=== PATIENT | female | born 1970 | race Caucasian/White ===

== ENCOUNTER 2017-06-18 04:57 | Emergency (ER) | payer SELFPAY ==
[~2017-06-18] VITALS: Ht 157.5 cm; Wt 59.0 kg
[~2017-06-18 04:57] MED LIST: ALPR2TAB2 PO; AMIT100T2 PO; ASP325T PO; CARV12.5 PO; CARV3.122 PO; CEPH500C PO; CIPR500T78 PO; CYCL10TA9 PO; FURO20TA4 PO; HYDR-2997 PO; LANS30CA PO; LISI10TA PO; METR500T PO; OXYC1TAB95 PO; SULF1TAB23 PO; ZOLP10TA5 PO
--- OUTSIDE RECORDS SUMMARY | 2017-06-18 05:06 | XMS REPORT | Continuity of Care Document ---
Author Author [facility] Organization [facility] Address Unknown Phone Unavailable Allergies Active Description Code Type Severity Reaction Onset Reported/Identified Relationship to Patient Clinical Status Yes penicillin V potassium Drug Allergy 02/09/2011 Yes penicillin V potassium Drug Allergy N/A N/A 02/09/2011 Medications There is no data. Problems Date Dx Coded Attending Type Code Diagnosis Diagnosed By 2008 DIO MAURER APRN 729.5 PAIN IN LIMB 2008 DIO MAURER APRN 780.52 INSOMNIA UNSPECIFIED 2008 DIO MAURER APRN 729.5 PAIN IN LIMB 2008 DIO MAURER APRN 780.52 INSOMNIA UNSPECIFIED 2008 TEIXEIRA DO, RONNIE K 729.5 PAIN IN LIMB 2008 TEIXEIRA DO, RONNIE K 780.52 INSOMNIA UNSPECIFIED 2008 TEIXEIRA DO, RONNIE K 729.5 PAIN IN LIMB 2008 TEIXEIRA DO, RONNIE K 780.52 INSOMNIA UNSPECIFIED 2008 TEIXEIRA DO, RONNEI K 729.5 PAIN IN LIMB 2008 TEIXEIRA DO, RONNIE K 780.52 INSOMNIA UNSPECIFIED 2008 TEIXEIRA DO, RONNIE K 729.5 PAIN IN LIMB 2008 TEIXEIRA DO, RONNIE K 780.52 INSOMNIA UNSPECIFIED 2008 729.5 PAIN IN LIMB 2008 780.52 INSOMNIA UNSPECIFIED 04/17/2009 DIO MAURER APRN 296.90 MOOD DISORDER 04/17/2009 DIO MAURER APRN 296.90 MOOD DISORDER 04/17/2009 TEIXEIRA DO, RONNIE K 296.90 MOOD DISORDER 04/17/2009 TEIXEIRA DO, RONNIE K 296.90 MOOD DISORDER 04/17/2009 TEIXEIRA DO, RONNIE K 296.90 MOOD DISORDER 04/17/2009 TEIXEIRA DO, RONNIE K 296.90 MOOD DISORDER 04/17/2009 296.90 MOOD DISORDER 03/24/2010 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, DIO T 382.00 OTITIS MEDIA ACUTE SUPPURATIVE 03/24/2010 DIO MAURER APRN T 724.5 BACKACHE UNSPECIFIED 03/24/2010 DIO MAURER APRN T 382.00 OTITIS MEDIA ACUTE SUPPURATIVE 03/24/2010 DIO MAURER APRN T 724.5 BACKACHE UNSPECIFIED 03/24/2010 TEIXEIRA DO, RONNIE K 382.00 OTITIS MEDIA ACUTE SUPPURATIVE 03/24/2010 TEIXEIRA DO, RONNIE K 724.5 BACKACHE UNSPECIFIED 03/24/2010 TEIXEIRA DO, RONNIE K 382.00 OTITIS MEDIA ACUTE SUPPURATIVE 03/24/2010 TEIXEIRA DO, RONNIE K 724.5 BACKACHE UNSPECIFIED 03/24/2010 TEIXEIRA DO, RONNIE K 382.00 OTITIS MEDIA ACUTE SUPPURATIVE 03/24/2010 TEIXEIRA DO, RONNIE K 724.5 BACKACHE UNSPECIFIED 03/24/2010 TEIXEIRA DO, RONNIE K 382.00 OTITIS MEDIA ACUTE SUPPURATIVE 03/24/2010 TEIXEIRA DO, RONNIE K 724.5 BACKACHE UNSPECIFIED 03/24/2010 382.00 OTITIS MEDIA ACUTE SUPPURATIVE 03/24/2010 724.5 BACKACHE UNSPECIFIED 08/11/2011 DIO MAURER APRN T 354.0 CARPAL TUNNEL SYNDROME 08/11/2011 DIO MAURER APRN 354.0 CARPAL TUNNEL SYNDROME 08/11/2011 TEIXEIRA DO, RONNIE K 354.0 CARPAL TUNNEL SYNDROME 08/11/2011 TEIXEIRA DO, RONNIE K 354.0 CARPAL TUNNEL SYNDROME 08/11/2011 TEIXEIRA DO, RONNIE K 354.0 CARPAL TUNNEL SYNDROME 08/11/2011 TEIXEIRA DO, RONNIE K 354.0 CARPAL TUNNEL SYNDROME 08/11/2011 354.0 CARPAL TUNNEL SYNDROME 05/09/2013 DIO MAURER APRN 892.0 OPEN WOUND OF FOOT EXCEPT TOE(S) ALONE WITHOUT COMPLICATION 05/09/2013 TEIXEIRA DO, RONNIE K 892.0 OPEN WOUND OF FOOT EXCEPT TOE(S) ALONE WITHOUT COMPLICATION 05/09/2013 TEIXEIRA DO, RONNIE K 892.0 OPEN WOUND OF FOOT EXCEPT TOE(S) ALONE WITHOUT COMPLICATION 05/09/2013 TEIXEIRA DO, RONNIE K 892.0 OPEN WOUND OF FOOT EXCEPT TOE(S) ALONE WITHOUT COMPLICATION 05/09/2013 TEIXEIRA DO, RONNIE K 892.0 OPEN WOUND OF FOOT EXCEPT TOE(S) ALONE WITHOUT COMPLICATION 07/14/2013 RONNIE TEIXEIRA DO 707.15 ULCER-FOOT/TOES 07/14/2013 RONNIE TEIXEIRA DO 707.15 ULCER-FOOT/TOES 07/14/2013 RONNIE TEIXEIRA DO 707.15 ULCER-FOOT/TOES 07/14/2013 RONNIE TEIXEIRA DO 707.15 ULCER-FOOT/TOES 07/28/2013 RONNIE TEIXEIRA DO 682.7 CELLULITIS - FOOT 07/28/2013 RONNIE TEIXEIRA DO 682.7 CELLULITIS - FOOT 07/28/2013 RONNIE TEIXEIRA DO 682.7 CELLULITIS - FOOT Procedures Code Description Performed By Performed On PODIATRY EVETTE, MELVIN 05/09/2013 82683 DEBRIDE SKIN TISSUE 07/14/2013 41655 XRAY FEET, LADARIUS 07/14/2013 76082 BONE IMAGING 3 PHASE 07/14/2013 72880 DEBRIDE SKIN TISSUE 07/28/2013 65093 DEBRIDE SKIN TISSUE 08/18/2013 29982 DEBRIDE SKIN FULL 09/08/2013 Results There is no data. Encounters ACCT No. Visit Date/Time Discharge Status Pt. Type Provider Facility Loc./Unit Complaint [id number] 08/03/2013 09:38:00 08/03/2013 12:48:00 DIS Emergency [id number] 07/18/2013 11:49:00 07/18/2013 23:59:59 CLS Outpatient [id number] 06/05/2013 16:43:00 06/05/2013 20:48:00 DIS Emergency [id number] 04/25/2013 16:59:00 04/25/2013 18:41:00 DIS Emergency [id number] 12/23/2012 07:17:00 12/23/2012 10:33:00 DIS Emergency [id number] 09/08/2013 08:26:00 09/08/2013 23:59:59 CLS Outpatient RONNIE TEIXEIRA DO [id number] 08/18/2013 07:52:00 08/18/2013 23:59:59 CLS Outpatient RONNIE TEIXEIRA DO [id number] 07/28/2013 08:55:00 07/28/2013 23:59:59 CLS Outpatient RONNIE TEIXEIRA DO [id number] 07/14/2013 09:42:00 07/14/2013 23:59:59 CLS Outpatient RONNIE TEIXEIRA DO [id number] 05/09/2013 15:24:00 05/09/2013 23:59:59 CLS Outpatient DIO MAURER APRN [id number] 08/11/2011 16:08:00 08/11/2011 23:59:59 CLS Outpatient DIO MAURER APRN [id number] 08/11/2011 16:08:00 08/11/2011 23:59:59 CLS Outpatient
[2017-06-18] MEDS ORDERED: NS IV 1000 ML 0 ML ONE (05:11)
[2017-06-18] MEDS ORDERED: NS IV 500 ML 500 ML IV ONE (05:11)
[2017-06-18] MEDS ORDERED: ACETAMINOPHEN 500 MG TAB (TYLENOL) ONE (05:13)
[2017-06-18] MEDS ORDERED: NS IV 500 ML 500 ML ONE (05:13)
[2017-06-18] MEDS ORDERED: ACETAMINOPHEN 500 MG TAB (TYLENOL) PO PRN (05:15)
[2017-06-18 05:39] LABS: BASOPHILS % (AUTO) 0 % (0-10); EOSINOPHILS % (AUTO) 0 % (0-10); HEMATOCRIT 40 % (35-52); HEMOGLOBIN 14.1 G/DL (11.5-16.0); LYMPHOCYTES # (AUTO) 1.6 X 10^3 (1.0-4.0); LYMPHOCYTES % (AUTO) 20 % (12-44); MEAN CORPUSCULAR HEMOGLOBIN 33 PG (25-34); MEAN CORPUSCULAR HGB CONC 36 G/DL (32-36); MEAN CORPUSCULAR VOLUME 92 FL (80-99); MEAN PLATELET VOLUME 10.3 FL (7.4-10.4); MONOCYTES % (AUTO) 12 % (0-12); NEUTROPHILS # (AUTO) 5.4 X 10^3 (1.8-7.8); NEUTROPHILS % (AUTO) 67 % (42-75); PLATELET COUNT 233 10^3/uL (130-400); RED BLOOD COUNT 4.31 10^6/uL (4.35-5.85); RED CELL DISTRIBUTION WIDTH 12.3 % (10.0-14.5)
[2017-06-18 05:41] LABS: BILIRUBIN,URINE NEGATIVE (NEGATIVE); CLARITY,URINE CLEAR; COLOR,URINE YELLOW; GLUCOSE, URINE (UA) NEGATIVE (NEGATIVE); KETONES,URINE NEGATIVE (NEGATIVE); LEUKOCYTE ESTERASE ,URINE NEGATIVE (NEGATIVE); NITRITE,URINE NEGATIVE (NEGATIVE); PH,URINE 5 (5-9); PROTEIN,URINE NEGATIVE (NEGATIVE); UROBILINOGEN,URINE NORMAL (NORMAL)
--- NOTE | 2017-06-18 05:47 | ED General ---
General Chief Complaint: Cough/Cold/Flu Symptoms Stated Complaint: FLU SYMPTOMS,N/V Source of Information: Patient, Family (MAUREEN SHARMA MD) History of Present Illness Date Seen by Provider: Jun 18, 2017 Time Seen by Provider: 05:07 Initial Comments Here with cough, runny nose, body aches and fever that have been going on for 3 days. States the body aches are worse today. Took ibuprofen 400 mg a couple hours ago this does not help. States that she feels terrible. Does have history of heart failure as well as other cardiac issues and had fairly significant acute renal failure a few years ago. States that that has resolved. States that she had heart catheter a few weeks ago at [facility] and had 100 percent blockage but no stents placed. She has medications prescribed and is taking some of but is out of a few of them. Follows with [facility]. She did not get her flu shot this year. Timing/Duration: 2-3 Days Severity: Moderate Modifying Factors: improves with Other (none) Associated Systoms: No Chest Pain, Cough, Fever/Chills, Malaise, No Nausea/ Vomiting, No Shortness of Air, Weakness (MAUREEN SHARMA MD) Allergies and Home Medications Allergies Coded Allergies: Penicillins (Verified Allergy, Mild, 08/07/11) Home Medications Alprazolam 2 Mg Tablet, 2 MG PO QID, (Reported) Amitriptyline Hcl 100 Mg Tablet, 1 EACH PO DAILY, (Reported) Carvedilol 12.5 Mg Tablet, 12.5 MG PO BID, (Reported) Cyclobenzaprine Hcl 10 Mg Tablet, 1 EACH PO BID, #20 Prescribed by: GONZALEZ SMITH on 12/23/12 1011 Furosemide 20 Mg Tablet, 20 MG PO DAILY, (Reported) Lansoprazole 30 Mg Capsule.dr, 30 MG PO BID PRN for HEARTBURN, (Reported) Lisinopril 10 Mg Tablet, 10 MG PO DAILY, (Reported) Oxycodone Hcl/Acetaminophen 1 Each Tablet, 1 EACH PO Q6HR PRN, (Reported) Sulfamethoxazole/Trimethoprim 1 Tab Tablet, 1 TAB PO BID, (Reported) Zolpidem Tartrate 10 Mg Tablet, 10 MG PO HS, (Reported) Constitutional: see HPI, chills, fever, malaise, weakness EENTM: nose congestion, throat pain Respiratory: cough, No wheezing Cardiovascular: No chest pain, No edema, Hx of Intervention Gastrointestinal: No abdominal pain, nausea, No vomiting Genitourinary: no symptoms reported Musculoskeletal: see HPI, No joint swelling, muscle pain Skin: no symptoms reported Psychiatric/Neurological: No Symptoms Reported (MAUREEN SHARMA MD) All Other Systems Reviewed Negative Unless Noted: Yes (MAUREEN SHARMA MD) Past Mzwgeqe-Wbwagy-Hvjllz Hx Patient Social History Alcohol Use: Denies Use Recreational Drug Use: No Smoking Status: Current Everyday Smoker Type Used: Cigarettes Recent Foreign Travel: No Contact w/Someone Who Travel: No (MAUREEN SHARMA MD) Surgeries History of Surgeries: Yes Surgeries: Coronary Stent, Orthopedic (MAUREEN SHARMA MD) Respiratory History of Respiratory Disorde: Yes Respiratory Disorders: Chronic Bronchitis (MAUREEN SHARMA MD) Cardiovascular History of Cardiac Disorders: Yes Cardiac Disorders: Coronary Artery Disease, Hypertension (MAUREEN SHARMA MD) Neurological History of Neurological Disord: No (MAUREEN SHARMA MD) Genitourinary History of Genitourinary Disor: Yes Genitourinary Disorders: Renal Failure (MAUREEN SHARMA MD) Gastrointestinal History of Gastrointestinal Di: No (MAUREEN SHARMA MD) Musculoskeletal History of Musculoskeletal Dis: Yes Musculoskeletal Disorders: Back Injury (MAUREEN SHARMA MD) Endocrine History of Endocrine Disorders: No (MAUREEN SHARMA MD) HEENT History of HEENT Disorders: No (MAUREEN SHARMA MD) Psychosocial History of Psychiatric Problem: Yes Behavioral Health Disorders: Anxiety (MAUREEN SHARMA MD) Blood Transfusions Adverse Reaction to a Blood Tr: No (MAUREEN SHARMA MD) Reviewed Nursing Assessment Reviewed/Agree w Nursing PMH: Yes (MAUREEN SHARMA MD) Family Medical History Significant Family History: No Pertinent Family Hx (MAUREEN SHARMA MD) Physical Exam-Suspected Sepsis Physical Exam Vital Signs Vital Sign - Last 12Hours 06/18/17 05:04 Temp 101.0 Pulse 107 Resp 20 B/P (MAP) 115/82 (93) Pulse Ox 95 O2 Delivery Room Air (GONZALEZ SMITH MD) Vital Signs Capillary Refill : (MAUREEN SHARMA MD) General Appearance: WD/WN, Mild Distress HEENT: PERRL/EOMI, Pharyngeal Erythema, Other (bilateral nasal congestion with clear rhinorrhea and moderate erythema) Neck: Non Tender, Supple Respiratory: Lungs Clear, Normal Breath Sounds Cardiovascular: No Murmur, Tachycardia Gastrointestinal: Non Tender, Soft Back: Normal Inspection, No CVA Tenderness, No Vertebral Tenderness Extremity: Normal Range of Motion, Non Tender Neurologic/Psychiatric: Alert, Oriented x3 Skin: normal color, warm/dry (MAUREEN SHARMA MD) Focused Exam Evaluation Lactate Level Laboratory Tests 06/18/17 05:22: Lactic Acid Level 1.61 (GONZALEZ SMITH MD) Lactic Acid Level Laboratory Tests Test 06/18/17 05:22 Lactic Acid Level 1.61 MMOL/L (0.50-2.00) (GONZALEZ SMITH MD) Progress/Results/Core Measures Suspected Sepsis SIRS Temperature: Pulse: Respiratory Rate: Laboratory Tests 06/18/17 05:22: Blood Pressure / Mean: Laboratory Tests 06/18/17 05:22: Laboratory Tests 06/18/17 05:22: (MAUREEN SHARMA MD) Results/Orders Lab Results Laboratory Tests Test 06/18/17 05:22 06/18/17 05:30 Range/Units White Blood Count 8.0 4.3-11.0 10^3/uL Red Blood Count 4.31 L 4.35-5.85 10^6/uL Hemoglobin 14.1 11.5-16.0 G/DL Hematocrit 40 35-52 % Mean Corpuscular Volume 92 80-99 FL Mean Corpuscular Hemoglobin 33 25-34 PG Mean Corpuscular Hemoglobin Concent 36 32-36 G/DL Red Cell Distribution Width 12.3 10.0-14.5 % Platelet Count 233 130-400 10^3/uL Mean Platelet Volume 10.3 7.4-10.4 FL Neutrophils (%) (Auto) 67 42-75 % Lymphocytes (%) (Auto) 20 12-44 % Monocytes (%) (Auto) 12 0-12 % Eosinophils (%) (Auto) 0 0-10 % Basophils (%) (Auto) 0 0-10 % Neutrophils # (Auto) 5.4 1.8-7.8 X 10^3 Lymphocytes # (Auto) 1.6 1.0-4.0 X 10^3 Monocytes # (Auto) 1.0 0.0-1.0 X 10^3 Eosinophils # (Auto) 0.0 0.0-0.3 10^3/uL Basophils # (Auto) 0.0 0.0-0.1 10^3/uL Prothrombin Time 13.4 12.2-14.7 SEC INR Comment 1.0 0.8-1.4 Activated Partial Thromboplast Time 33 24-35 SEC Sodium Level 138 135-145 MMOL/L Potassium Level 3.7 3.6-5.0 MMOL/L Chloride Level 103 98-107 MMOL/L Carbon Dioxide Level 21 21-32 MMOL/L Anion Gap 14 5-14 MMOL/L Blood Urea Nitrogen 7 7-18 MG/DL Creatinine 0.75 0.60-1.30 MG/DL Estimat Glomerular Filtration Rate > 60 BUN/Creatinine Ratio 9 Glucose Level 171 H 70-105 MG/DL Lactic Acid Level 1.61 0.50-2.00 MMOL/L Calcium Level 8.7 8.5-10.1 MG/DL Total Bilirubin 0.4 0.1-1.0 MG/DL Aspartate Amino Transf (AST/SGOT) 15 5-34 U/L Alanine Aminotransferase (ALT/SGPT) 14 0-55 U/L Alkaline Phosphatase 70 40-136 U/L B-Type Natriuretic Peptide 98.6 <100.0 PG/ML Total Protein 6.8 6.4-8.2 GM/DL Albumin 3.7 3.2-4.5 GM/DL Urine Color YELLOW Urine Clarity CLEAR Urine pH 5 5-9 Urine Specific [place] 1.010 L 1.016-1.022 Urine Protein NEGATIVE NEGATIVE Urine Glucose (UA) NEGATIVE NEGATIVE Urine Ketones NEGATIVE NEGATIVE Urine Nitrite NEGATIVE NEGATIVE Urine Bilirubin NEGATIVE NEGATIVE Urine Urobilinogen NORMAL NORMAL MG/DL Urine Leukocyte Esterase NEGATIVE NEGATIVE Urine RBC (Auto) 5+ H NEGATIVE Urine RBC 0-2 /HPF Urine WBC NONE /HPF Urine Squamous Epithelial Cells 5-10 /HPF Urine Crystals NONE /LPF Urine Bacteria TRACE /HPF Urine Casts NONE /LPF Urine Mucus NEGATIVE /LPF Urine Culture Indicated NO Urine Opiates Screen NEGATIVE NEGATIVE Urine Oxycodone Screen NEGATIVE NEGATIVE Urine Methadone Screen NEGATIVE NEGATIVE Urine Propoxyphene Screen NEGATIVE NEGATIVE Urine Barbiturates Screen NEGATIVE NEGATIVE Ur Tricyclic Antidepressants Screen NEGATIVE NEGATIVE Urine Phencyclidine Screen NEGATIVE NEGATIVE Urine Amphetamines Screen NEGATIVE NEGATIVE Urine Methamphetamines Screen NEGATIVE NEGATIVE Urine Benzodiazepines Screen NEGATIVE NEGATIVE Urine Cocaine Screen NEGATIVE NEGATIVE Urine Cannabinoids Screen POSITIVE H NEGATIVE (GONZALEZ SMITH MD) Micro Results Microbiology 06/18/17 Influenza Types A,B Antigen (POLLY) - Final, Complete (GONZALEZ SMITH MD) Medications Given in ED Current Medications Medications Dose Ordered Sig/Aixa Route Start Time Stop Time Status Last Admin Dose Admin Acetaminophen 1,000 mg ONCE PRN PO 06/18/17 05:15 06/18/17 05:38 DC 06/18/17 05:14 1,000 MG Sodium Chloride 500 ml @ 0 mls/hr Q0M ONCE IV 06/18/17 05:11 06/18/17 05:13 DC 06/18/17 05:24 500 MLS/HR (GONZALEZ SMITH MD) Vital Signs/I&O Vital Sign - Last 12Hours 06/18/17 05:04 Temp 101.0 Pulse 107 Resp 20 B/P (MAP) 115/82 (93) Pulse Ox 95 O2 Delivery Room Air (GONZALEZ SMITH MD) Vital Signs/I&O Capillary Refill : (MAUREEN SHARMA MD) Progress Note : Progress Note Seen and evaluated. IV, labs, blood cultures, lactic acid, UA, chest x-ray, influenza screen UDS ordered. Normal saline 500 mL bolus. Monitor patient. Temperature noted to be 101 Fahrenheit. Tylenol 1 g by mouth ordered. Monitor patient. (MAUREEN SHARMA MD) Departure Impression Impression: Primary Impression: flulike illness Disposition: 01 HOME, SELF-CARE Condition: Stable/Unchanged Departure-Patient Inst. Decision time for Depature: 06:36 (GONZALEZ SMITH MD) Referrals: [facility] (PCP) Primary Care Physician DIO MAURER (Family) Primary Care Physician Patient Instructions: Flu, Adult (DC) Add. Discharge Instructions: All discharge instructions reviewed with patient and/or family. Voiced understanding. Symptoms may last as long as 2 weeks. Use extra rest, plenty of fluids including fruit juice. Take Tylenol and /or ibuprofen for fever aches and chills. Do not exceed 3000 mg of Tylenol per day or 2400 mg of ibuprofen a day. If increasing problems contact your provider. MAUREEN SHARMA MD Jun 18, 2017 05:47 GONZALEZ SMITH MD Jun 18, 2017 06:38
[2017-06-18 05:49] LABS: PROTHROMBIN TIME PATIENT 13.4 SEC (12.2-14.7)
[2017-06-18 05:59] LABS: BACTERIA,URINE TRACE /HPF; RBC,URINE 0-2 /HPF
[2017-06-18 06:06] LABS: ALANINE AMINOTRANSFERASE 14 U/L (0-55); ALBUMIN 3.7 GM/DL (3.2-4.5); ALKALINE PHOSPHATASE 70 U/L (40-136); BILIRUBIN,TOTAL 0.4 MG/DL (0.1-1.0); BUN/CREATININE RATIO 9; CALCIUM 8.7 MG/DL (8.5-10.1); CARBON DIOXIDE 21 MMOL/L (21-32); CHLORIDE 103 MMOL/L (98-107); CREATININE SERUM 0.75 MG/DL (0.60-1.30); GFR ESTIMATED > 60; GLUCOSE 171 MG/DL (70-105); POTASSIUM 3.7 MMOL/L (3.6-5.0); SODIUM 138 MMOL/L (135-145); TOTAL PROTEIN 6.8 GM/DL (6.4-8.2)
[2017-06-18 06:07] LABS: AMPHETAMINE SCREEN, URINE NEGATIVE (NEGATIVE); BENZODIAZEPINES SCREEN URINE NEGATIVE (NEGATIVE); COCAINE SCREEN URINE NEGATIVE (NEGATIVE)
[2017-06-18 06:08] LABS: BARBITURATE SCREEN URINE NEGATIVE (NEGATIVE); CANNABINOID SCREEN, URINE POSITIVE (NEGATIVE); METHADONE STAT NEGATIVE (NEGATIVE); METHAMPHETAMINE SCREEN URINE S NEGATIVE (NEGATIVE); OPIATE SCREEN URINE NEGATIVE (NEGATIVE); OXYCODONE STAT NEGATIVE (NEGATIVE); PROPOXYPHENE STAT NEGATIVE (NEGATIVE); TRICYCLIC ANTIDEPRESSANTS SCRE NEGATIVE (NEGATIVE)
--- NOTE | 2017-06-18 06:28 | Diagnostic Imaging Report ---
INDICATION: Cough, congestion, flulike symptoms x3 days. TECHNIQUE: Single view chest 5:47 a.m. CORRELATION STUDY: 08/03/2013 FINDINGS: The heart size, mediastinal configuration and pulmonary vascularity are within normal limits. There is suggestion minimal airspace disease about the lung bases. IMPRESSION: 1. Suspect minimal airspace disease perhaps pneumonia involving the lung bases right greater than left. Dictated by: Dictated on workstation # [id number]
[2017-06-18 06:47] VITALS: BP 119/83
== END 2017-06-18 06:47 | disposition home or self-care (01) ==
LOC: EDUNIT# 04:57 → ER 05:02
DX: J11.1 Influenza due to unidentified influenza virus with other respiratory manifestations (principal); I11.0 Hypertensive heart disease with heart failure; I50.9 Heart failure, unspecified; J42 Unspecified chronic bronchitis; F41.9 Anxiety disorder, unspecified; I25.10 Atherosclerotic heart disease of native coronary artery without angina pectoris; F17.210 Nicotine dependence, cigarettes, uncomplicated; Z95.5 Presence of coronary angioplasty implant and graft
CPT/HCPCS: 36415; 71045; 80053; 80306; 81000; 83605; 83880; 85025; 85610; 85730; 87040; 87804; 96360

== ENCOUNTER → 2017-08-31 | Outpatient (CLI) | payer OTHER | LOC: CARD 11:11 | PROVIDERS: ATTEND Nurse Practitioner Family | DX: I25.10 Atherosclerotic heart disease of native coronary artery without angina pectoris (principal); I25.5 Ischemic cardiomyopathy; E78.5 Hyperlipidemia, unspecified; Z72.0 Tobacco use | CPT/HCPCS: 93306 ==

== ENCOUNTER → 2018-06-28 | Outpatient (CLI) | payer OTHER ==
[~2018-06-28] VITALS: Ht 157.5 cm; Wt 59.0 kg
[~2018-06-28] MED LIST changes: +CATHETER FLUSH 10 ML SYR IV PRN; +REGADENOSON 0.4 MG/5 ML SYR (LEXISCAN) IV ONE
[2018-06-28 13:02] VITALS: BP 119/75
[2018-06-28 13:12] VITALS: BP 101/63
--- NOTE | 2018-06-29 09:20 | STRESS TEST ---
DATE OF SERVICE: 06/28/2018 RESTING AND POST REGADENOSON TECHNETIUM-99M TETROFOSMIN SPECT CT IMAGING ORDERING PHYSICIAN: Mariola Kat APRN. PRIMARY PHYSICIAN: [facility]. CLINICAL DIAGNOSES: Shortness of breath, coronary artery disease and hyperlipidemia. Baseline images were carried out after injection of 10.64 mCi of technetium-99m Tetrofosmin, but this was followed by 0.4 mg of Regadenoson and 30.8 mCi of technetium-99m Tetrofosmin for stress imaging. The electrocardiogram showed sinus rhythm at baseline. There was evidence of inferior wall myocardial infarction on the electrocardiogram. The electrocardiogram did not change significantly with the Regadenoson infusion. The patient noted some shortness of breath following Regadenoson infusion, which resolved in a few minutes. Review of images at rest and following stress indicates a predominantly fixed inferior perfusion defect. Gated images show inferior akinesis. Left ventricular ejection fraction is calculated to be 29%. Left ventricular end diastolic volume is 99 mL. TID is absent (0.93). The study is compromised by a considerable gut activity that is noted, especially during the resting images. CONCLUSIONS: 1. Inferior wall myocardial infarction with minimal martine-infarct ischemia. 2. Inferior akinesis. 3. Impairment of global left ventricular systolic function with an ejection fraction of 29%. Job ID: [id number] DocumentID: [id number] Dictated Date: 06/29/2018 08:57:08 Hog Room Supervisor Date: 06/29/2018 09:19:49 Dictated By: EDDIE LUZ MD, MA, FACP, FACC,
== END ==
LOC: CARD 10:22
PROVIDERS: ATTEND Nurse Practitioner Family
DX: R06.09 Other forms of dyspnea (principal); I21.19 ST elevation (STEMI) myocardial infarction involving other coronary artery of inferior wall; I25.10 Atherosclerotic heart disease of native coronary artery without angina pectoris; E78.5 Hyperlipidemia, unspecified; I25.5 Ischemic cardiomyopathy; Z91.19 Patient's noncompliance with other medical treatment and regimen
CPT/HCPCS: 78452; 93017

== ENCOUNTER 2020-02-29 01:14 | Emergency (ER) | payer SELFPAY ==
[~2020-02-29] VITALS: Ht 157 cm; Wt 63.5 kg
[~2020-02-29 01:14] MED LIST changes: -CATHETER FLUSH 10 ML SYR IV PRN; -REGADENOSON 0.4 MG/5 ML SYR (LEXISCAN) IV ONE
[2020-02-29] MEDS ORDERED: KETOROLAC 30 MG/ML VIAL IM ONE (02:15)
--- NOTE | 2020-02-29 03:30 | ED Hip Pain/Injury ---
General Chief Complaint: Hip/Pelvic Problems Stated Complaint: RT HIP PAIN Nursing Triage Note: TO ED VIA POV AND AMBULATORY TO ROOM 3 STATING, "I THINK MY RIGHT HIP IS DISLOCATED" X2 DAYS. DENIES INJURY YET STATES "I WAS BORN WITH OSTEOMYELITIS." Source: patient, old records Exam Limitations: no limitations History of Present Illness Date Seen by Provider: Feb 29, 2020 Time Seen by Provider: 01:55 Initial Comments This 50-year-old woman presents to the emergency room with complaints of right hip pain. She is ambulatory with a limp. She denies any injury. She reports being born with "osteomyelitis" which has caused chronic problems. She has taken only Tylenol for the pain. She has not had her hip pain evaluated yet by any other provider. Allergies and Home Medications Allergies Coded Allergies: Penicillins (Verified Allergy, Mild, 08/07/11) Home Medications Alprazolam 2 Mg Tablet, 2 MG PO QID, (Reported) Amitriptyline Hcl 100 Mg Tablet, 1 EACH PO DAILY, (Reported) Carvedilol 12.5 Mg Tablet, 12.5 MG PO BID, (Reported) Cyclobenzaprine Hcl 10 Mg Tablet, 1 EACH PO BID Prescribed by: GONZALEZ SMITH on 12/23/12 1011 Furosemide 20 Mg Tablet, 20 MG PO DAILY, (Reported) Lansoprazole 30 Mg Capsule.dr, 30 MG PO BID PRN for HEARTBURN, (Reported) Lisinopril 10 Mg Tablet, 10 MG PO DAILY, (Reported) Oxycodone Hcl/Acetaminophen 1 Each Tablet, 1 EACH PO Q6HR PRN, (Reported) Sulfamethoxazole/Trimethoprim 1 Tab Tablet, 1 TAB PO BID, (Reported) Tramadol HCl 50 Mg Tablet, 50 MG PO Q6H PRN for PAIN-BREAKTHROUGH Prescribed by: SUDHA CVOINGTON on 02/29/20 0334 Zolpidem Tartrate 10 Mg Tablet, 10 MG PO HS, (Reported) Patient Home Medication List Home Medication List Reviewed: Yes Review of Systems Constitutional: no symptoms reported EENTM: no symptoms reported Respiratory: no symptoms reported Cardiovascular: no symptoms reported Gastrointestinal: no symptoms reported Genitourinary: no symptoms reported : No Musculoskeletal: see HPI Skin: no symptoms reported Psychiatric/Neurological: No Symptoms Reported Past Xnvcdfy-Bcsxjr-Mvuoud Hx Past Med/Social Hx: Reviewed Nursing Past Med/Soc Hx Patient Social History Alcohol Use: Denies Use Recreational Drug Use: No Smoking Status: Current Everyday Smoker Type Used: Cigarettes 2nd Hand Smoke Exposure: Yes Recent Foreign Travel: No Contact w/Someone Who Travel: No Recent Infectious Disease Expo: No Recent Hopitalizations: Yes ([facility] 05/30, [place], HEART FAILURE) Physical Abuse: No Sexual Abuse: No Mistreated: No Fear: No Past Medical History Surgeries: Yes Section, Coronary Stent, Gallbladder, Orthopedic Respiratory: Yes Chronic Bronchitis Cardiac: Yes Coronary Artery Disease, Heart Attack, Hypertension Neurological: No Genitourinary: Yes Renal Failure Gastrointestinal: No Musculoskeletal: Yes (STATES "BORN WITH OSTEOMYELITIS") Arthritis, Back Injury Endocrine: No HEENT: No Cancer: No Psychosocial: Yes Anxiety Integumentary: No Blood Disorders: No Adverse Reaction/Blood Tranf: No Family Medical History No Pertinent Family Hx Physical Exam Vital Signs Vital Signs - First Documented 02/29/20 02/29/20 01:34 03:40 Temp 36.6 Pulse 105 Resp 20 B/P (MAP) 138/99 (112) Pulse Ox 100 O2 Delivery Room Air Capillary Refill : Less Than 3 Seconds Height, Weight, BMI Height: 5'2.00" Weight: 130lbs. 0.0oz. 58.490677no; 25.00 BMI Method:Stated General Appearance: WD/WN, Moderate Distress, Thin HEENT: PERRL/EOMI, Normal ENT Inspection Neck: Normal Inspection Cardiovascular: Regular Rate, Rhythm, No Edema, No Murmur Respiratory: Lungs Clear, Normal Breath Sounds, No Accessory Muscle Use, No Respiratory Distress Gastrointestinal: Normal Bowel Sounds, Non Tender, Soft Extremity: Normal Inspection, No Pedal Edema, Other (tenderness over the right hip and into the buttock as well as over the hip joint. Pain with rotation. Distal exam unremarkable.) Neurologic/Psychiatric: Alert, Oriented x3, No Motor/Sensory Deficits, Normal Mood/Affect, machine fixer II-XII Norm as Tested Skin: Normal Color, Warm/Dry Progress/Results/Core Measures Results/Orders My Orders Orders - SUDHA ABARCA MD Ketorolac Injection (Toradol Injection) (02/29/20 02:15) Pelvis With Right Hip 2-3views (02/29/20 02:04) Medications Given in ED Vital Signs/I&O 02/29/20 02/29/20 01:34 03:40 Temp 36.6 36.6 Pulse 105 89 Resp 20 18 B/P (MAP) 138/99 (112) 129/97 (112) Pulse Ox 100 O2 Delivery Room Air Room Air Blood Pressure Mean: 112 Progress Progress Note : Progress Note Toradol injection was given for pain with some improvement. X-rays consistent with degenerative disease with no acute injuries identified. Diagnostic Imaging Diagonstic Imaging: Xray Plain Films/CT/US/NM/MRI: pelvis, hip Comments X-rays of the right hip and pelvis viewed by me and compared with prior. Report not yet available. Degenerative changes with associated calcifications noted. Departure Impression Primary Impression: Right hip pain Additional Impression: Arthritis of right hip Disposition: HOME, SELF-CARE Condition: Improved Departure-Patient Inst. Decision time for Depature: 03:28 Referrals: [facility] (PCP) Primary Care Physician DIO MAURER (Family) Primary Care Physician Patient Instructions: Osteoarthritis (DC) Add. Discharge Instructions: Follow-up at the [facility] clinic as soon as possible. Please call them for follow-up appointment in the morning. Be sure to review x-ray reports at the clinic since the official read from the radiologist was not available at the time of discharge from the ER. You may use a combination of Tylenol (acetaminophen) up to 1000 mg every 6 hours and ibuprofen up to 600 mg every 6 hours as needed for pain. Return to care if you have worsening symptoms. All discharge instructions reviewed with patient and/or family. Voiced understanding. Scripts Tramadol HCl (Ultram) 50 Mg Tablet 50 MG PO Q6H PRN for PAIN-BREAKTHROUGH, #10 TAB Prov: SUDHA ABARCA MD 02/29/20 Work/School Note: Work Release Form Date Seen in the Emergency Department: Feb 29, 2020 Return to Work: Mar 01, 2020 Other Restrictions Listed Below: Gradually increase level of activity as pain allows. Copy Copies To 1: RONNIE TEIXEIRA JOSHUA T MD Feb 29, 2020 03:30
[2020-02-29] MEDS ORDERED: TRAM-42 PO ×2 (03:32→03:34)
[2020-02-29 03:40] VITALS: BP 129/97
--- NOTE | 2020-02-29 05:12 | Diagnostic Imaging Report ---
Indication: Right hip pain AP view pelvis and 2 views the right hip are obtained There is no fracture or dislocation. There are some calcifications in the right hip joint space that could be due to synovial chondromatosis. There is moderate degenerative change with superior joint space narrowing and spur formation in the superior lateral aspect of the acetabulum. 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 There is no fracture or acute abnormality seen. Dictated by: Dictated on workstation # [id number]
== END 2020-02-29 03:42 | disposition home or self-care (01) ==
LOC: EDUNIT# 01:14 → ER 01:16
DX: M16.11 Unilateral primary osteoarthritis, right hip (principal); I10 Essential (primary) hypertension; I25.10 Atherosclerotic heart disease of native coronary artery without angina pectoris; I25.2 Old myocardial infarction; F41.9 Anxiety disorder, unspecified; F17.210 Nicotine dependence, cigarettes, uncomplicated; Z95.5 Presence of coronary angioplasty implant and graft; Z88.0 Allergy status to penicillin

== ENCOUNTER 2022-03-14 21:13 | Emergency (ER) | payer MEDICAID ==
[~2022-03-14] VITALS: Ht 157 cm; Wt 63.5 kg
[~2022-03-14 21:13] MED LIST changes: +TRAM-42 PO
[2022-03-14] MEDS ORDERED: ASPI-999 PO (21:22)
[2022-03-14] MEDS ORDERED: QUET200T29 (21:22)
[2022-03-14] MEDS ORDERED: TETANUS,DIPTH,PERTUSS P/F (BOOSTRIX) 0.5 ML VIAL IM ONE (21:30)
[2022-03-14 21:32] LABS: BILIRUBIN,URINE NEGATIVE (NEGATIVE); CLARITY,URINE CLEAR; COLOR,URINE YELLOW; GLUCOSE, URINE (UA) NEGATIVE (NEGATIVE); KETONES,URINE NEGATIVE (NEGATIVE); LEUKOCYTE ESTERASE ,URINE NEGATIVE (NEGATIVE); NITRITE,URINE NEGATIVE (NEGATIVE); PH,URINE 6.5 (5-9); PROTEIN,URINE NEGATIVE (NEGATIVE)
[2022-03-14 21:36] VITALS: BP 107/74
[2022-03-14 21:42] LABS: BACTERIA,URINE FEW /HPF; SQUAMOUS EPITHELIAL CELL,UR 0-2 /HPF; WBC,URINE RARE /HPF
[2022-03-14 21:43] LABS: AMPHETAMINE SCREEN, URINE POSITIVE (NEGATIVE); BARBITURATE SCREEN URINE NEGATIVE (NEGATIVE); BENZODIAZEPINES SCREEN URINE NEGATIVE (NEGATIVE); CANNABINOID SCREEN, URINE NEGATIVE (NEGATIVE); COCAINE SCREEN URINE NEGATIVE (NEGATIVE); METHADONE STAT NEGATIVE (NEGATIVE); OPIATE SCREEN URINE NEGATIVE (NEGATIVE); OXYCODONE STAT NEGATIVE (NEGATIVE); PROPOXYPHENE STAT NEGATIVE (NEGATIVE); TRICYCLIC ANTIDEPRESSANTS SCRE NEGATIVE (NEGATIVE)
== END 2022-03-14 21:36 | disposition left against medical advice (07) ==
LOC: EDUNIT# 21:13 → ER 21:14
DX: Z04.1 Encounter for examination and observation following transport accident (principal); Z28.310 Unvaccinated for COVID-19; V20.59XA Other motorcycle passenger injured in collision with pedestrian or animal in traffic accident, initial encounter; Y92.410 Unspecified street and highway as the place of occurrence of the external cause
CPT/HCPCS: 80306; 81000; 84703; 87088; 93041

== ENCOUNTER 2022-04-19 16:16 | Emergency (ER) | payer MEDICAID ==
[~2022-04-19] VITALS: Ht 157.5 cm; Wt 58.9 kg
[~2022-04-19 16:16] MED LIST changes: +ASPI-999 PO; +QUET200T29
[2022-04-19 16:19] VITALS: BP 133/95
[2022-04-19] MEDS ORDERED: ONDANSETRON 4 MG (ZOFRAN) ORAL DISSOLVE TAB PO STA (16:38)
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
[2022-04-19] MEDS: KETOROLAC 30 MG/ML VIAL IVP ONE (17:24)
[2022-04-19] MEDS: fentaNYL INJ 100 MCG/2 ML AMP IVP ONE (17:24)
== END 2022-04-19 17:29 | disposition left against medical advice (07) ==
LOC: EDUNIT# 16:16 → ER 16:18
DX: R42 Dizziness and giddiness (principal); F15.11 Other stimulant abuse, in remission; M54.6 Pain in thoracic spine; Z91.199 Patient's noncompliance with other medical treatment and regimen due to unspecified reason; F17.210 Nicotine dependence, cigarettes, uncomplicated; Z28.310 Unvaccinated for COVID-19; Z87.828 Personal history of other (healed) physical injury and trauma
CPT/HCPCS: 99281

== ENCOUNTER 2022-10-12 12:50 | Inpatient (IN) | payer MEDICAID ==
[~2022-10-12] VITALS: Ht 157.3 cm; Wt 73.1 kg
[2022-10-12] MEDS ORDERED: LORazepam INJ 2 MG/ML (ATIVAN) VIAL ONE (13:07)
[2022-10-12] MEDS ORDERED: LORazepam INJ 2 MG/ML (ATIVAN) VIAL IM ONE (13:15)
--- NOTE | 2022-10-12 13:22 | ED Neurological Problem ---
General Chief Complaint: Altered Mental Status Stated Complaint: ALTERED MENTAL STATUS Nursing Triage Note: PT BROUGHT IN BY [facility] FROM HOME WITH COMPLAINT OF ALTERED MENTAL STATUS. PER BOYFRIEND, PT WAS FOUND ON THE FLOOR UNABLE TO SPEAK. STATES SYMTPOMS STARTED YESTERDAY. PT NOT COOPERATING DURING ASSESSMENT, WILL NOT ROLL ON TO BACK, SWATTING AT STAFF. Source: patient, family, EMS, old records Exam Limitations: clinical condition History of Present Illness Date Seen by Provider: October 12, 2022 Time Seen by Provider: 12:52 Initial Comments 52-year-old female with methamphetamine use disorder coming in via EMS from home due to altered mental status. The patient smoked meth 2 to 3 days ago per the boyfriend. She has not been acting normal since then. She has been confused, laying on the couch, and he states that normally makes her more "normal". EMS has been called 3 times, the patient refused 2 other times for transport. This time she was more confused and was unable to refuse transport. She denies any pain anywhere at this time, and states she does not want an IV or any type of therapy at this time. Boyfriend states she is confused and unable to refuse this. Allergies and Home Medications Allergies Coded Allergies: Penicillins (Verified Allergy, Mild, 08/07/11) Patient Home Medication List Home Medication List Reviewed: Yes Aspirin (Aspirin) 81 Mg Tab.chew, 81 MG PO, (Reported) Entered as Reported by: JUNIE DE LA ROSA on 03/14/222121 Quetiapine Fumarate (Quetiapine Fumarate) 200 Mg Tablet, (Reported) Entered as Reported by: JUNIE DE LA ROSA on 03/14/222121 Review of Systems Review of Systems Constitutional: No fever Past Szdtbxu-Wtqlgn-Tiqwts Hx Patient Social History Smoking Status: Unknown if Ever Smoked Use of E-Cig and/or Vaping dev: Unable to obtain Substance use?: Yes Substance type: Amphetamines, Methamphetamine Alcohol Use?: Unable to obtain Pt feels they are or have been: Unable to obtain Immunizations Up To Date First/Initial COVID19 Vaccinat: NA Second COVID19 Vaccination Earl: NA Third COVID19 Vaccination Date: NA Past Medical History Surgery/Hospitalization HX: MIX3, RIGHT HIP REPLACEMENT Surgeries: Yes Section, Coronary Stent, Gallbladder, Orthopedic Respiratory: Yes Chronic Bronchitis Cardiac: Yes Coronary Artery Disease, Heart Attack, Hypertension Neurological: No Genitourinary: Yes Renal Failure Gastrointestinal: No Musculoskeletal: Yes (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 0.0oz. 58.834039tb; 23.00 BMI Method:Stated General Appearance: other (Sleepy but wakes up to voice, combative with any type of physical stimulation) HEENT: PERRL/EOMI, normal ENT inspection, pharynx normal Neck: non-tender, full range of motion, supple, normal inspection Respiratory: chest non-tender, lungs clear, normal breath sounds, no respiratory distress, no accessory muscle use Cardiovascular: regular rate, rhythm, no edema, no murmur Gastrointestinal: normal bowel sounds, non tender, soft; No distended, No guarding, No rebound Back: normal inspection, no CVA tenderness Extremities: normal range of motion, non-tender, normal inspection, no pedal edema, no calf tenderness, normal capillary refill Neurologic/Psychiatric: other (Oriented to self, very strong in all extremities, slurred speech) Skin: normal color, warm/dry Progress/Results/Core Measures Results/Orders Lab Results Laboratory Tests Test 10/12/22 14:25 Range/Units White Blood Count 10.1 4.3-11.0 10^3/uL Red Blood Count 5.12 H 3.80-5.11 10^6/uL Hemoglobin 15.8 11.5-16.0 g/dL Hematocrit 46 35-52 % Mean Corpuscular Volume 90 80-99 fL Mean Corpuscular Hemoglobin 31 25-34 pg Mean Corpuscular Hemoglobin Concent 34 32-36 g/dL Red Cell Distribution Width 11.9 10.0-14.5 % Platelet Count 271 130-400 10^3/uL Mean Platelet Volume 9.7 9.0-12.2 fL Immature Granulocyte % (Auto) 0 % Neutrophils (%) (Auto) 60 42-75 % Lymphocytes (%) (Auto) 31 12-44 % Monocytes (%) (Auto) 9 0-12 % Eosinophils (%) (Auto) 0 0-10 % Basophils (%) (Auto) 0 0-10 % Neutrophils # (Auto) 6.0 1.8-7.8 10^3/uL Lymphocytes # (Auto) 3.1 1.0-4.0 10^3/uL Monocytes # (Auto) 0.9 0.0-1.0 10^3/uL Eosinophils # (Auto) 0.0 0.0-0.3 10^3/uL Basophils # (Auto) 0.0 0.0-0.1 10^3/uL Immature Granulocyte # (Auto) 0.0 0.0-0.1 10^3/uL Percent Immature Platelet Fraction 2.7 0.0-7.6 % Sodium Level 139 135-145 MMOL/L Potassium Level 5.2 H 3.6-5.0 MMOL/L Chloride Level 102 98-107 MMOL/L Carbon Dioxide Level 24 21-32 MMOL/L Anion Gap 13 5-14 MMOL/L Blood Urea Nitrogen 11 7-18 MG/DL Creatinine 0.84 0.60-1.30 MG/DL Estimat Glomerular Filtration Rate 85 BUN/Creatinine Ratio 13 Glucose Level 111 H 70-105 MG/DL Calcium Level 10.1 8.5-10.1 MG/DL Corrected Calcium 10.0 8.5-10.1 MG/DL Magnesium Level 2.0 1.6-2.4 MG/DL Total Bilirubin 0.6 0.1-1.0 MG/DL Aspartate Amino Transf (AST/SGOT) 21 5-34 U/L Alanine Aminotransferase (ALT/SGPT) 15 0-55 U/L Alkaline Phosphatase 111 40-136 U/L Troponin I < 0.028 <0.028 NG/ML C-Reactive Protein High Sensitivity 0.64 H 0.00-0.50 MG/DL Total Protein 7.5 6.4-8.2 GM/DL Albumin 4.1 3.2-4.5 GM/DL Lipase 12 8-78 U/L Salicylates Level < 5.0 L 5.0-20.0 MG/DL Acetaminophen Level < 10 L 10-30 UG/ML Serum Alcohol < 10 <10 MG/DL My Orders Orders - KIA REYNOSO MD Ct Head Wo-R/O Stroke (10/12/22 13:06) Ed Iv/Invasive Line Start (10/12/22 13:06) Acetaminophen (10/12/22 13:06) Alcohol (10/12/22 13:06) Cbc With Automated Diff (10/12/22 13:06) Comprehensive Metabolic Panel (10/12/22 13:06) Hs C Reactive Protein (10/12/22 13:06) Drug Screen Stat (Urine) (10/12/22 13:06) Hcg,Qualitative Serum (10/12/22 13:06) Lactic Acid Analyzer (10/12/22 13:06) Lipase (10/12/22 13:06) Magnesium (10/12/22 13:06) Protime With Inr (10/12/22 13:06) Partial Thromboplastin Time (10/12/22 13:06) Salicylate (10/12/22 13:06) Troponin I Brittany (10/12/22 13:06) Ua Culture If Indicated (10/12/22 13:06) Accucheck Stat ONCE (10/12/22 13:06) Ekg Tracing (10/12/22 13:06) O2 (10/12/22 13:06) Monitor-Rhythm Ecg Trace Only (10/12/22 13:06) Chest 1 View, Ap/Pa Only (10/12/22 13:06) Lorazepam Injection (Ativan Injection) (10/12/22 13:15) Catheter(Urinary) Insert & Ass 03,15 (10/12/22 13:08) Lorazepam Injection (Ativan Injection) (10/12/22 13:07) Midazolam Injection (Versed Injection) (10/12/22 14:45) Midazolam Injection (Versed Injection) (10/12/22 14:42) Dexmedetomidine 250 Ml Drip (Precedex Dr (10/12/22 14:59) Ed Admission (Communication) (10/12/22 15:05) Non-Violent Restraints-Soft Li Q2H (10/12/22 15:17) Medications Given in ED Current Medications Medications Dose Ordered Sig/Aixa Route Start Time Stop Time Status Last Admin Dose Admin Lorazepam 2 mg STK-MED ONCE .ROUTE 10/12/22 13:07 10/12/22 13:09 DC 10/12/22 13:10 2 MG Midazolam HCl 5 mg STK-MED ONCE .ROUTE 10/12/22 14:42 10/12/22 14:45 DC 10/12/22 14:51 5 MG Vital Signs/I&O 10/12/22 12:51 Pulse 88 Resp 16 B/P (MAP) 103/62 (76) Pulse Ox 97 O2 Delivery Room Air Blood Pressure Mean: 76 Progress Progress Note : Progress Note 52-year-old female with above history coming in due to altered mental status. ABCs were intact and vitals were stable on presentation. Physical exam was a slurred speech with decreased level of consciousness. Patient very agitated and very strong in all extremities. Does appear like she has some left-sided facial droop. Symptoms have been going on for more than 48 hours, the patient is not a candidate for any type of tPA or thrombectomy. CT head Noncon concerning for subacute right MCA stroke. I contacted the stroke neurologist at [facility], Dr. Louise, and discussed the patient's case. She recommended MRI looking for stroke burden and if there is any mass effect and potentially transferring to an ICU. She also recommended a CTA head and neck. 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 I discussed the case with Dr. Branham, we are both concerned that the patient is coming off of meth, is very agitated, and likely will not tolerate an MRI at this time. The patient has tried to leave already, and I suspect she will try to sign out AMA. We will start her on a Precedex drip for agitation while she is coming off of the methamphetamines. She will be admitted to the intensive care unit for further evaluation and management Of note, I placed an ultrasound-guided IV as the patient was a difficult stick. She did require IM Versed for this to occur as she was agitated. Initial ECG Impression Date: October 12, 2022 Initial ECG Impression Time: 15:36 Initial ECG Rate: 108 Initial ECG Rhythm: S.Tach Comment Narrow QRS, left axis deviation, Q waves in the inferior leads, no STEMI Diagnostic Imaging Diagonstic Imaging: Xray (chest), CT (head) Comments [facility] [place], [place] NAME: REAGAN WHITFIELD [facility] REC#: [id number] PT STATUS: REG ER : 1970 PHYSICIAN: KIA REYNOSO MD ADMIT DATE: 10/12/22/ER Draft Date of Exam:10/12/22 CT HEAD WO-R/O STROKE PROCEDURE: CT head wo r/o stroke. TECHNIQUE: Multiple contiguous axial images were obtained through the brain without the use of intravenous contrast. Auto Exposure Controls were utilized during the CT exam to meet ALARA standards for radiation dose reduction. INDICATION: Altered mental status. COMPARISON: No prior studies are available for comparison. FINDINGS: There is a large area of low-attenuation identified in the right middle cerebral artery territory, suggestive of acute ischemia. There are some hyperdense right MCA branches in this area which may represent blood clot within M2 and M3 branches. There is some mild sulcal effacement as well in the right frontoparietal lobe. Ventricular size is normal without evidence of hydrocephalus. There is no mass effect or midline shift. No acute intra-axial or extra-axial hemorrhage is detected. The cisterns are patent. IMPRESSION: Features are concerning for a subacute right MCA territory infarct without evidence of acute hemorrhage. MRI would be useful for further evaluation. The results were discussed with Dr. Kia Reynoso of the Emergency Department prior to this dictation. Dictated on workstation # [id number] Dict: 10/12/22 1408 Trans: 10/12/22 1416 [id number] Interpreted by: ALLYSON CERNA MD Electronically signed by: Departure Impression Primary Impression: CVA (cerebral vascular accident) Qualified Codes: I63.511 - Cerebral infarction due to unspecified occlusion or stenosis of right middle cerebral artery Additional Impression: History of methamphetamine abuse Disposition: ADMITTED INPATIENT Condition: Stable Admissions Decision to Admit Reason: Admit from ER (General) Decision to Admit/Date: October 12, 2022 Time/Decision to Admit Time: 16:50 Departure-Patient Inst. Referrals: [facility] (PCP/Family) Primary Care Physician KIA REYNOSO MD October 12, 2022 13:22
--- NOTE | 2022-10-12 14:15 | Diagnostic Imaging Report ---
INDICATION: Altered mental status. COMPARISON: 06/18/2017. FINDINGS: The foraminal status did not allow for optimal cooperativeness and a rotation and motion degraded radiograph. The left lung is best visualized and appears grossly clear. The right lung shows no convincing consolidation. The heart size is normal. No effusion or pneumothorax is apparent. No free air beneath the diaphragms. IMPRESSION: No acute abnormality revealed at the frontal radiograph which is limited by motion and positional challenges. Dictated by: Dictated on workstation # [id number]
--- NOTE | 2022-10-12 14:17 | Diagnostic Imaging Report ---
PROCEDURE: CT head wo r/o stroke. TECHNIQUE: Multiple contiguous axial images were obtained through the brain without the use of intravenous contrast. Auto Exposure Controls were utilized during the CT exam to meet ALARA standards for radiation dose reduction. INDICATION: Altered mental status. COMPARISON: No prior studies are available for comparison. FINDINGS: There is a large area of low-attenuation identified in the right middle cerebral artery territory, suggestive of acute ischemia. There are some hyperdense right MCA branches in this area which may represent blood clot within M2 and M3 branches. There is some mild sulcal effacement as well in the right frontoparietal lobe. Ventricular size is normal without evidence of hydrocephalus. There is no mass effect or midline shift. No acute intra-axial or extra-axial hemorrhage is detected. The cisterns are patent. IMPRESSION: Features are concerning for a subacute right MCA territory infarct without evidence of acute hemorrhage. MRI would be useful for further evaluation. The results were discussed with Dr. Carlos Shaikh of the Emergency Department prior to this dictation. Dictated by: Dictated on workstation # [id number]
[2022-10-12 14:33] LABS: HEMOGLOBIN 15.8 g/dL (11.5-16.0)
[2022-10-12 14:35] LABS: BASOPHILS % (AUTO) 0 % (0-10); EOSINOPHILS % (AUTO) 0 % (0-10); HEMATOCRIT 46 % (35-52); LYMPHOCYTES # (AUTO) 3.1 10^3/uL (1.0-4.0); LYMPHOCYTES % (AUTO) 31 % (12-44); MEAN CORPUSCULAR HEMOGLOBIN 31 pg (25-34); MEAN CORPUSCULAR HGB CONC 34 g/dL (32-36); MEAN CORPUSCULAR VOLUME 90 fL (80-99); MEAN PLATELET VOLUME 9.7 fL (9.0-12.2); MONOCYTES # (AUTO) 0.9 10^3/uL (0.0-1.0); MONOCYTES % (AUTO) 9 % (0-12); NEUTROPHILS % (AUTO) 60 % (42-75); PLATELET COUNT 271 10^3/uL (130-400); WHITE BLOOD COUNT 10.1 10^3/uL (4.3-11.0)
[2022-10-12] MEDS ORDERED: MIDAZOLAM 5 MG/5 ML (VERSED) VIAL ONE (14:42)
[2022-10-12 14:45] LABS: ALBUMIN 4.1 GM/DL (3.2-4.5); CHLORIDE 102 MMOL/L (98-107); POTASSIUM 5.2 MMOL/L (3.6-5.0); SODIUM 139 MMOL/L (135-145)
[2022-10-12] MEDS ORDERED: MIDAZOLAM 10 MG/2 ML (VERSED) VIAL IM ONE (14:45)
[2022-10-12 14:46] LABS: CALCIUM 10.1 MG/DL (8.5-10.1)
[2022-10-12 14:48] LABS: GLUCOSE 111 MG/DL (70-105); TOTAL PROTEIN 7.5 GM/DL (6.4-8.2)
[2022-10-12 14:49] LABS: BILIRUBIN,TOTAL 0.6 MG/DL (0.1-1.0); CARBON DIOXIDE 24 MMOL/L (21-32)
[2022-10-12 14:51] LABS: ALKALINE PHOSPHATASE 111 U/L (40-136); CREATININE SERUM 0.84 MG/DL (0.60-1.30); GFR ESTIMATED 85
[2022-10-12 14:52] LABS: BUN/CREATININE RATIO 13; SALICYLATE < 5.0 MG/DL (5.0-20.0)
[2022-10-12 14:53] LABS: ACETAMINOPHEN < 10 UG/ML (10-30)
[2022-10-12 14:54] LABS: ALANINE AMINOTRANSFERASE 15 U/L (0-55)
[2022-10-12 14:55] LABS: LIPASE 12 U/L (8-78)
[2022-10-12] MEDS ORDERED: DexMEDEtomidine 250 ML DRIP 250 ML IV STA (14:59)
[2022-10-12] MEDS ORDERED: LACTULOSE SYRUP 10GM/15ML (ENULOSE) 30ML UDC PO PRN (16:15)
[2022-10-12] MEDS ORDERED: ANTACID SUSP 30 ML UDC (MYLANTA) PO PRN (16:15)
[2022-10-12] MEDS ORDERED: MILK OF MAGNESIA 400 MG/5 ML 30 ML UDC PO PRN (16:15)
[2022-10-12] MEDS ORDERED: ONDANSETRON 4 MG/2 ML (SDV) Z0FRAN IV PRN (16:15)
[2022-10-12] MEDS ORDERED: diphenhydrAMINE 50 MG/ML INJ (BENADRYL) IVP PRN (16:15)
[2022-10-12] MEDS ORDERED: ACETAMINOPHEN 325 MG TABLET PO PRN (16:15)
[2022-10-12] MEDS ORDERED: BISACODYL 10 MG SUPP (DULCOLAX) PR PRN (16:15)
[2022-10-12] MEDS ORDERED: polyethylene glycoL POWDER 17 GM (MIRALAX) PACK PO PRN (16:15)
[2022-10-12] MEDS ORDERED: ONDANSETRON 4 MG (ZOFRAN) ORAL DISSOLVE TAB PO PRN (16:15)
[2022-10-12] MEDS ORDERED: NS IV 500 ML 500 ML IV PRN (16:15)
[2022-10-12] MEDS ORDERED: MELATONIN 3 MG TABLET PO PRN (16:15)
[2022-10-12] MEDS ORDERED: diphenhydrAMINE 25 MG TAB (BENADRYL) PO PRN (16:15)
[2022-10-12] MEDS ORDERED: CALCIUM CARBONATE 500 MG (TUMS) TAB.CHEW PO PRN (16:15)
[2022-10-12 16:25] VITALS: BP 103/62
[2022-10-12] MEDS ORDERED: RT-ALBUTEROL SULF 2.5 MG/3 ML PRE-MIX VIAL INH PRN (16:30)
[2022-10-12] MEDS ORDERED: HALOPERIDOL 5 MG/ML (HALDOL) VIAL IJ ONE (16:30)
[2022-10-12] MEDS ORDERED: HALOPERIDOL 5 MG/ML (HALDOL) VIAL ONE (16:37)
[2022-10-12] MEDS: ENOXAPARIN 40 MG/0.4 ML (LOVENOX) SYR SC SCH (16:42)
[2022-10-12] MEDS ORDERED: NS IV 1000 ML 1,000 ML ONE (16:45)
--- NOTE | 2022-10-12 16:50 | Tele-ICU Consult ---
History of Present Illness History of Present Illness Date Seen by Provider: October 12, 2022 Time Seen by Provider: 16:49 History of Present Illness (Tele-ICU Physician , consultation as per request of PCP Service provided via interactive audio and video telecomRent My Items E-CARE system to a patient admitted to ICU bed in [facility]. Available chart/ vitals / labs / Images reviewed H&P is from ER notes Patient's information available about PMH, Shx, Fhx allergy reviewed inEMR. ROS as per chart and RN report Now in ICU, hemodynamically stable Video assessment done using teleICU camera, rest of exam as per RN Discussed with RN. Hospital course: 10/12/22 - to ICU with Subacute RIGHT MCA CVA and methamphetamines withdrawal ( pn presedex 0 A/P Subacute RIGHT MCA CVA (presented with confusion , left-sided facial droop ( > 48 h ) - not a candidate for any type of tPA or thrombectomy (out of time window - ER MD discussed with [facility], Dr. Louise- additional images recommend - MRI latter - when agitation controlled - BP control - WNL now -Antithrombotic medication plan as per neuro methamphetamines withdrawal - precedex, prn haldol -trying to minimize benzo given CVA ECHO fronm 2018 - reported EF 20 % - ? f/up , ? etiology Lines : periph , (Central Line Necessity Reviewed) Hoover: OG: Nutrition: speach eval Analgesia: Anxiety/ delirium as above VTE Prophylaxis: scd Stress Ulcer Prophylaxis: na Plans in collaboration with bedside consultants and IM MDs. Discussed with RN to reach out if any questions or concerns A total of 31 minutes of critical care time was devoted to this patient today, required to treat and/or prevent further deterioration of critical care condition ( as above ) . I am remotely monitoring this patient from another state. I am unable to do the bedside exam, and history/physical and pertinent information is taken from other notes in the computer and bedside staff. . Allergies and Home Medications Allergies Coded Allergies: Penicillins (Verified Allergy, Mild, 08/07/11) Past Medical/Social/Family Hx Patient Social History Smoking Status: Unknown if Ever Smoked Use of E-Cig and/or Vaping dev: Unable to obtain Substance use?: Yes Substance type: Amphetamines, Methamphetamine Alcohol Use?: Unable to obtain Pt stated abuse/neglect: Unable to obtain Immunizations Up To Date First/Initial COVID19 Vaccinat: NA Second COVID19 Vaccination Earl: NA Tetanus Booster (TDap): Unknown Current Status Advance Directives: Unable to obtain Primary Language: Central [place] Preferred Spoken Language: [place] Review of Systems Constitutional: see HPI Focused Exam Height, Weight, BMI Height: 5'2.00" Weight: 130lbs. 0.0oz. 58.520968gj; 23.00 BMI Method:Stated Exam Exam Patient acknowledged, consented, and participated in this virtual visit which was conducted using real time audio/video Vital Signs Date Time Temp Pulse Resp B/P (MAP) Pulse Ox O2 Delivery O2 Flow Rate FiO2 10/12/22 16:25 88 97 10/12/22 16:10 88 103/62 10/12/22 12:51 88 16 103/62 (76) 97 Room Air Height & Weight Height: 5'2.00" Weight: 130lbs. 0.0oz. 58.584066ex; 23.00 BMI Method:Stated General Appearance: Other Capillary Refill: Less Than 3 Seconds Gastrointestinal: normal bowel sounds, non tender, soft; No distended, No guarding, No rebound Results Lab Laboratory Tests 10/12/22 14:25 Assessment/Plan Assessment/Plan 1 JAYSON DAWSON MD October 12, 2022 16:50
[2022-10-12] MEDS: NS IV 1000 ML 1,000 ML IV SCH (17:11)
[2022-10-12] MEDS: DexMEDEtomidine 250 ML DRIP 250 ML IV SCH (17:12)
[2022-10-12 18:02] LABS: BILIRUBIN,URINE NEGATIVE (NEGATIVE); CLARITY,URINE CLEAR; COLOR,URINE YELLOW; GLUCOSE, URINE (UA) NEGATIVE (NEGATIVE); KETONES,URINE NEGATIVE (NEGATIVE); LEUKOCYTE ESTERASE ,URINE NEGATIVE (NEGATIVE); NITRITE,URINE NEGATIVE (NEGATIVE); PROTEIN,URINE NEGATIVE (NEGATIVE)
--- NOTE | 2022-10-12 18:08 | History & Physical-Hospitalist ---
History of Present Illness HPI/Chief Complaint CC: CVA with methamphetamine withdrawal HPI: This is a 52yoWF clinic patient of [facility] and known meth user and h/o CVA who presented to the ER with left sided weakness for 3 days. stroke neuro assessed the patient to not be a tPa candidate. Patient is a heavy user of meth and non-compliant with Plavix and ASA. She cannot tolerate MRI at this time and will be maintained on Precedex due to aggression. Source: RN/MD, old records Exam Limitations: clinical condition Date Seen 10/12/22 Time Seen by a Provider: 18:00 Attending Physician [place]/Replaced By [facility] PCP Admitting Physician: Henna Branham DO Attending Physician: Henna Branham DO Referring Physician Date of Admission October 12, 2022 at 15:58 Home Medications & Allergies Home Medications Reviewed patient Home Medication Reconciliation performed by pharmacy medication reconciliations industrial engineering technician and/or nursing. Patients Allergies have been reviewed. Allergies Allergies Coded Allergies Penicillins (Verified Allergy, Mild, 08/07/11) Past Ditiuet-Ikpbks-Escfsf Hx Patient Social History Marrital Status: single Employed/Student: unemployed Tobacco Use?: Yes Tobacco type used: Cigarettes Smoking Status: Current Everyday Smoker Use of E-Cig and/or Vaping dev: Unable to obtain Substance use?: Yes Substance type: Amphetamines, Methamphetamine Alcohol Use?: Unable to obtain Pt feels they are or have been: Unable to obtain Immunizations Up To Date First/Initial COVID19 Vaccinat: NA Second COVID19 Vaccination Earl: NA Tetanus Booster (TDap): Unknown Current Status status: No status: No Advance Directives: No Communicates: Verbally Primary Language: Turkish Preferred Spoken Language: Turkish Implanted or Applied Medical D: None Past Medical History Surgeries: Section, Coronary Stent, Gallbladder, Orthopedic Chronic Bronchitis Coronary Artery Disease, Heart Attack, Hypertension Stroke Renal Failure Arthritis, Back Injury Anxiety Blood Disorders: No Adverse Reaction/Blood Tranf: No Family Medical History No Pertinent Family Hx Review of Systems Constitutional: see HPI Physical Exam Physical Exam Vital Signs Vital Signs - First Documented 10/12/22 10/12/22 10/12/22 12:51 16:02 19:18 Temp 36.5 Pulse 88 Resp 16 B/P (MAP) 103/62 (76) Pulse Ox 97 O2 Delivery Room Air FiO2 97 Capillary Refill : Less Than 3 Seconds Height, Weight, BMI Height: 5'2.00" Weight: 130lbs. 0.0oz. 58.295597ih; 28.54 BMI Method:Stated General Appearance: Chronically ill, Other (sedated) Respiratory: Lungs Clear, Normal Breath Sounds Cardiovascular: Regular Rate, Rhythm Neurologic/Psychiatric: Other (confused) Results Results/Procedures Labs Laboratory Tests 10/12/22 14:25 Patient resulted labs reviewed. Assessment/Plan Admission Diagnosis Assessment: Right sided CVA subacute with left sided weakness Meth withdrawal CVA hx Plan: ICU Precedex Sedation Admission Status: Inpatient Order (span 2 midnights) Reason for Inpatient Admission: cva HENNA BRANHAM DO October 12, 2022 18:08
[2022-10-12 18:09] LABS: BACTERIA,URINE TRACE /HPF; SQUAMOUS EPITHELIAL CELL,UR 0-2 /HPF
[2022-10-12 18:25] LABS: AMPHETAMINE SCREEN, URINE POSITIVE (NEGATIVE); BARBITURATE SCREEN URINE NEGATIVE (NEGATIVE); BENZODIAZEPINES SCREEN URINE POSITIVE (NEGATIVE); CANNABINOID SCREEN, URINE NEGATIVE (NEGATIVE); COCAINE SCREEN URINE NEGATIVE (NEGATIVE); METHADONE STAT NEGATIVE (NEGATIVE); OPIATE SCREEN URINE NEGATIVE (NEGATIVE); OXYCODONE STAT NEGATIVE (NEGATIVE); PROPOXYPHENE STAT NEGATIVE (NEGATIVE); TRICYCLIC ANTIDEPRESSANTS SCRE POSITIVE (NEGATIVE)
[2022-10-12] MEDS: DOCUSATE SODIUM 100 MG (COLACE) CAP PO SCH (20:02)
[2022-10-12] MEDS: SENNOSIDES 8.6 MG (SENOKOT) TAB PO SCH (20:02)
[2022-10-12] MEDS: HALOPERIDOL 5 MG/ML (HALDOL) VIAL IM/IV PRN (20:40)
[2022-10-13] MEDS: DexMEDEtomidine 250 ML DRIP 250 ML IV SCH ×2 (00:36→22:53)
[2022-10-13] MEDS: NS IV 1000 ML 1,000 ML IV SCH ×3 (02:09→22:53)
[2022-10-13 04:35] LABS: BASOPHILS % (AUTO) 0 % (0-10); EOSINOPHILS % (AUTO) 0 % (0-10); HEMATOCRIT 49 % (35-52); HEMOGLOBIN 16.9 g/dL (11.5-16.0); LYMPHOCYTES # (AUTO) 3.1 10^3/uL (1.0-4.0); LYMPHOCYTES % (AUTO) 32 % (12-44); MEAN CORPUSCULAR HEMOGLOBIN 31 pg (25-34); MEAN CORPUSCULAR HGB CONC 35 g/dL (32-36); MEAN CORPUSCULAR VOLUME 90 fL (80-99); MEAN PLATELET VOLUME 9.6 fL (9.0-12.2); MONOCYTES % (AUTO) 11 % (0-12); NEUTROPHILS # (AUTO) 5.5 10^3/uL (1.8-7.8); NEUTROPHILS % (AUTO) 57 % (42-75); PLATELET COUNT 271 10^3/uL (130-400); WHITE BLOOD COUNT 9.7 10^3/uL (4.3-11.0)
[2022-10-13 04:52] LABS: POTASSIUM 4.4 MMOL/L (3.6-5.0)
[2022-10-13 04:53] LABS: ALBUMIN 4.2 GM/DL (3.2-4.5)
[2022-10-13 04:54] LABS: CALCIUM 10.1 MG/DL (8.5-10.1)
[2022-10-13 04:55] LABS: TOTAL PROTEIN 7.7 GM/DL (6.4-8.2)
[2022-10-13 04:57] LABS: BILIRUBIN,TOTAL 0.8 MG/DL (0.1-1.0)
[2022-10-13 04:58] LABS: PHOSPHORUS 3.6 MG/DL (2.3-4.7)
[2022-10-13 04:59] LABS: CREATININE SERUM 0.9 MG/DL (0.60-1.30)
[2022-10-13 05:02] LABS: MAGNESIUM 2.1 MG/DL (1.6-2.4)
[2022-10-13] MEDS: KCL 20 MEQ TAB (K-DUR) PO SCH (05:03)
[2022-10-13] MEDS: POTASSIUM CL 10MEQ/50ML IVPB 50 ML IV SCH (05:03)
[2022-10-13] MEDS: MAGNESIUM 1 GM/100 ML IVPB 100 ML IV SCH (05:08)
--- NOTE | 2022-10-13 05:18 | Progress Note - Hospitalist ---
Subjective HPI/CC On Admission Date Seen by Provider: October 13, 2022 Time Seen by Provider: 09:00 CC: CVA with methamphetamine withdrawal HPI: This is a 52yoWF clinic patient of [facility] and known meth user and h/o CVA who presented to the ER with left sided weakness for 3 days. [facility] stroke neuro assessed the patient to not be a tPa candidate. Patient is a heavy user of meth and non-compliant with Plavix and ASA. She cannot tolerate MRI at this time and will be maintained on Precedex due to aggression. Subjective/Events-last exam Stroke appears to have extended Left arm is flaccid now after moving it spontaneously yesterday UDS confirmed meth use Sedated after meds Checked meds and labs Prognosis guarded Reviewed BP Review of Systems Neurological: Weakness, Confusion Focused Exam Lactate Level 10/13/22 05:58: Lactic Acid Level 1.85 Lactic Acid Level Laboratory Tests Test 10/13/22 05:58 Lactic Acid Level 1.85 MMOL/L (0.50-2.00) Objective Exam Vital Signs Vital Signs Date Time Temp Pulse Resp B/P (MAP) Pulse Ox O2 Delivery O2 Flow Rate FiO2 10/13/22 08:00 64 19 106/74 (85) 98 Room Air 10/13/22 07:58 36.5 10/12/22 19:18 Capillary Refill : Less Than 3 Seconds General Appearance: No Apparent Distress, WD/WN, Chronically ill, Other (drowsy) Respiratory: No Accessory Muscle Use, No Respiratory Distress, Decreased Breath Sounds Cardiovascular: Regular Rate, Rhythm Neurologic/Psychiatric: Disoriented, Other (drowsy) Results/Procedures Lab Laboratory Tests 10/12/22 14:25 10/13/22 04:22 Patient resulted labs reviewed. Assessment/Plan Assessment and Plan Assess & Plan/Chief Complaint Assessment: Right sided CVA subacute with left sided weakness now with presumed extension of CVA with left arm flaccidity Meth withdrawal CVA hx non-compliant with Plavix and ASA Plan: ICU PT OT when able Sedation if aggressive from meth withdrawal Prognosis poor DVT PPx EMORY BERNAL DO October 13, 2022 05:18
--- NOTE | 2022-10-13 08:00 | Physical Therapy Progress Note ---
Therapy Progress Note Patient on Hold per RN due to decline in status. PT will continue to monitor patient status and initiate treatment when patient is deemed medically stable and able to actively participate with skilled therapy. VALDEMAR LEE PT October 13, 2022 08:00
--- NOTE | 2022-10-13 08:36 | Tele-ICU Progress Note ---
Subjective Date Seen by a Provider: October 13, 2022 Time Seen by a Provider: 08:13 Subjective/Events-last exam Service provided via interactive audio and video telecommunications E-CARE system to a patient admitted to ICU bed in [facility]. Available chart/ vitals / labs / Images reviewed H&P is from ER notes Patient's information available about PMH, Shx, Fhx allergy reviewed in EMR. ROS as per chart and RN report Now in ICU, hemodynamically stable Video assessment done using teleICU camera, rest of exam as per RN Discussed with RN. 52 yo F admitted with subacute right MCA CVA, no intervention done as outside window, no mass effect or shift Hx of methamphetamine use also has depressed LVEF 20% by Hx Today pt not as responsive, was on IV Precedex, stopped, pt became more awake, does appear agitated today but was very agitated yesterday, Getting speech and physical therapy but difficult due to disorientation, BP is 96/55 Sepsis Event Evaluation Height, Weight, BMI Height: 5'2.00" Weight: 130lbs. 0.0oz. 58.585177xe; 28.54 BMI Method:Stated Focused Exam Lactate Level 10/13/22 05:58: Lactic Acid Level 1.85 Lactic Acid Level Laboratory Tests Test 10/13/22 05:58 Lactic Acid Level 1.85 MMOL/L (0.50-2.00) Exam Exam Patient acknowledged, consented, and participated in this virtual visit which was conducted using real time audio/video Vital Signs Date Time Temp Pulse Resp B/P (MAP) Pulse Ox O2 Delivery O2 Flow Rate FiO2 10/13/22 08:00 64 19 106/74 (85) 98 Room Air 10/13/22 07:58 36.5 10/13/22 07:44 74 10/13/22 07:23 98 Room Air 10/13/22 07:00 64 19 85/59 (68) 97 Room Air 10/13/22 06:00 68 18 79/57 (64) 97 Room Air 10/13/22 05:00 65 20 84/61 (69) 94 Room Air 10/13/22 04:36 63 97/71 10/13/22 04:33 35.6 10/13/22 04:00 63 16 97/71 (80) 98 Room Air 10/13/22 04:00 98 Room Air 10/13/22 03:00 68 14 96/66 (76) 98 Room Air 10/13/22 02:00 67 12 99/68 (78) 95 Room Air 10/13/22 01:00 72 18 104/76 (85) 93 Room Air 10/13/22 00:44 73 10/13/22 00:36 70 96/65 10/13/22 00:00 70 24 96/65 (75) 98 Room Air 10/12/22 23:48 95 Room Air 10/12/22 23:08 36.6 10/12/22 23:00 79 19 98/71 (80) 95 Room Air 10/12/22 22:00 75 20 94/67 (76) 98 Room Air 10/12/22 21:12 75 94/67 10/12/22 21:00 80 18 108/80 (89) 93 Room Air 10/12/22 20:00 75 18 96/67 (77) 98 Room Air 10/12/22 19:43 36.7 10/12/22 19:18 97 Room Air 10/12/22 19:00 72 16 99/71 (80) 98 Room Air 10/12/22 19:00 73 10/12/22 18:00 77 12 103/64 (77) 97 Room Air 10/12/22 17:17 87 34 113/70 (86) 97 Room Air 10/12/22 17:12 88 103/62 10/12/22 17:00 89 23 117/80 (97) 97 Room Air 10/12/22 16:45 101 32 115/88 (100) 98 Room Air 10/12/22 16:30 101 31 125/87 (105) 99 Room Air 10/12/22 16:25 88 97 10/12/22 16:15 121 20 123/106 (109) 97 Room Air 10/12/22 16:10 105 10/12/22 16:10 88 103/62 10/12/22 16:05 101 41 121/85 (99) 97 Room Air 10/12/22 16:02 36.5 116 19 144/77 (109) 99 Room Air 10/12/22 15:52 102 14 122/87 96 Room Air 10/12/22 12:51 88 16 103/62 (76) 97 Room Air I & O 10/13/22 07:00 Intake Total 1250 ml Output Total 280 ml Balance 970 ml Height & Weight Height: 5'2.00" Weight: 130lbs. 0.0oz. 58.057941mm; 28.54 BMI Method:Stated General Appearance: Anxious, Chronically ill, Other (sedated) Respiratory: Lungs Clear, Normal Breath Sounds, Decreased Breath Sounds Cardiovascular: Regular Rate, Rhythm Capillary Refill: Less Than 3 Seconds Gastrointestinal: normal bowel sounds, non tender, soft; No distended, No guarding, No rebound Extremity: No Pedal Edema Neurologic/Psychiatric: Other (confused, difficult to understand, probably disoriented x 3) Results Lab Laboratory Tests 10/12/22 14:25 10/13/22 04:22 Assessment/Plan Assessment/Plan Subacute right MCA iCVA, continue Plavix, ASA, q day Lovenox, PT, OT, watch for methamphetamine withdrawal, SpO2 96% on RA, does snore when sleeps and has Hb 16.9, would consider Dx of NEDRA causing a reactive polycythemia To get UDS Appears able to protect airway Did not need Haldol today, would get neurology to do telehealth visit Critical Care: Critically Ill Patient Time spent with patient (mins): 25 RIOS DEL RIO MD October 13, 2022 08:36
[2022-10-13] MEDS: ASPIRIN 325 MG (5 GR) TABLET PO SCH (08:39)
[2022-10-13] MEDS: DOCUSATE SODIUM 100 MG (COLACE) CAP PO SCH ×2 (08:51→21:00)
[2022-10-13] MEDS: CLOPIDOGREL 75 MG (PLAVIX) TABLET PO SCH (08:52)
[2022-10-13] MEDS: SENNOSIDES 8.6 MG (SENOKOT) TAB PO SCH ×2 (08:52→21:00)
[2022-10-13 09:49] LABS: INR 1.1 (0.8-1.4); PROTHROMBIN TIME PATIENT 13.9 SEC (12.2-14.7)
--- NOTE | 2022-10-13 11:07 | Speech Therapy Progress Note ---
Therapy Progress Note Speech pathology attempted the requested clinical bedside swallowing evaluation at 1037. The patient was lying in bed, asleep at this time. The patient does not wake to maximum verbal stimuli or sternal rub. The patient is snoring but does groan when her name is spoken by the clinician. The patient is not appropriate for participation in the swallowing evaluation at this time. ST will continue to assess the patient daily for appropriateness of participation. Thank you for the consultation. RUBI JAMES October 13, 2022 11:07
[2022-10-13] MEDS: NS IV 500 ML 500 ML IV SCH (11:49)
[2022-10-13] MEDS: ENOXAPARIN 40 MG/0.4 ML (LOVENOX) SYR SC SCH (17:04)
[2022-10-13] MEDS: HALOPERIDOL 5 MG/ML (HALDOL) VIAL IM/IV PRN (17:04)
--- NOTE | 2022-10-14 05:15 | Progress Note - Hospitalist ---
Subjective HPI/CC On Admission Date Seen by Provider: October 14, 2022 Time Seen by Provider: 11:00 CC: CVA with methamphetamine withdrawal HPI: This is a 52yoWF clinic patient of [facility] and known meth user and h/o CVA who presented to the ER with left sided weakness for 3 days. [place] stroke neuro assessed the patient to not be a tPa candidate. Patient is a heavy user of meth and non-compliant with Plavix and ASA. She cannot tolerate MRI at this time and will be maintained on Precedex due to aggression. Subjective/Events-last exam No major changes Precedex maintained for meth withdrawal agitation Partner at bedside and I explained neurostroke specialist evaluated the patient in the ER Needs NGT for feeding if swallowing does not return PT OT ordered Left arm is flaccid Cardiology consultation Review of Systems Neurological: Weakness (left arm), Confusion Focused Exam Lactate Level 10/13/22 05:58: Lactic Acid Level 1.85 Objective Exam Vital Signs Vital Signs Date Time Temp Pulse Resp B/P (MAP) Pulse Ox O2 Delivery O2 Flow Rate FiO2 10/14/22 14:00 61 112/67 (82) 100 Room Air 10/14/22 13:00 27 10/14/22 12:00 36.6 10/12/22 19:18 Capillary Refill : Less Than 3 Seconds General Appearance: No Apparent Distress, WD/WN, Chronically ill, Other (asleep) Respiratory: Lungs Clear, Normal Breath Sounds Cardiovascular: Regular Rate, Rhythm Results/Procedures Lab Laboratory Tests 10/14/22 09:40 Patient resulted labs reviewed. Assessment/Plan Assessment and Plan Assess & Plan/Chief Complaint Assessment: Right sided CVA subacute with left sided weakness now with presumed extension of CVA with left arm flaccidity Meth withdrawal CVA hx non-compliant with Plavix and ASA Plan: ICU with Precedex PT OT when able Sedation if aggressive from meth withdrawal Prognosis poor DVT PPx Cardiology consultation Critical Care Critically Ill Patient EMORY BERNAL DO October 14, 2022 05:15
[2022-10-14] MEDS: NS IV 500 ML 500 ML IV SCH ×2 (07:12→21:31)
[2022-10-14] MEDS: DexMEDEtomidine 250 ML DRIP 250 ML IV SCH ×2 (08:35→19:57)
[2022-10-14] MEDS: ASPIRIN 325 MG (5 GR) TABLET PO SCH (08:35)
[2022-10-14] MEDS: MIDAZOLAM 5 MG/5 ML (VERSED) VIAL IVP PRN ×3 (09:04→20:35)
[2022-10-14] MEDS: NS IV 1000 ML 1,000 ML IV SCH ×2 (09:05→18:32)
[2022-10-14] MEDS: SENNOSIDES 8.6 MG (SENOKOT) TAB PO SCH ×2 (09:06→20:31)
[2022-10-14] MEDS: DOCUSATE SODIUM 100 MG (COLACE) CAP PO SCH ×2 (09:06→20:30)
[2022-10-14] MEDS: CLOPIDOGREL 75 MG (PLAVIX) TABLET PO SCH (09:06)
[2022-10-14 09:59] LABS: BASOPHILS % (AUTO) 0 % (0-10); EOSINOPHILS % (AUTO) 0 % (0-10); HEMATOCRIT 36 % (35-52); HEMOGLOBIN 12.8 g/dL (11.5-16.0); LYMPHOCYTES # (AUTO) 2.7 10^3/uL (1.0-4.0); LYMPHOCYTES % (AUTO) 31 % (12-44); MEAN CORPUSCULAR HEMOGLOBIN 32 pg (25-34); MEAN CORPUSCULAR HGB CONC 36 g/dL (32-36); MEAN CORPUSCULAR VOLUME 89 fL (80-99); MEAN PLATELET VOLUME 9.9 fL (9.0-12.2); MONOCYTES # (AUTO) 0.6 10^3/uL (0.0-1.0); MONOCYTES % (AUTO) 7 % (0-12); NEUTROPHILS # (AUTO) 5.4 10^3/uL (1.8-7.8); NEUTROPHILS % (AUTO) 61 % (42-75); PLATELET COUNT 223 10^3/uL (130-400); WHITE BLOOD COUNT 8.8 10^3/uL (4.3-11.0)
[2022-10-14 10:17] LABS: BILIRUBIN,TOTAL 0.6 MG/DL (0.1-1.0); CALCIUM 7.9 MG/DL (8.5-10.1); CREATININE SERUM 0.76 MG/DL (0.60-1.30); MAGNESIUM 1.6 MG/DL (1.6-2.4); PHOSPHORUS 3.1 MG/DL (2.3-4.7); POTASSIUM 3.4 MMOL/L (3.6-5.0); TOTAL PROTEIN 5.4 GM/DL (6.4-8.2)
[2022-10-14] MEDS ORDERED: MAGNESIUM 1 GM/100 ML IVPB 100 ML IV ONE (10:30)
--- NOTE | 2022-10-14 10:33 | Speech Therapy Progress Note ---
Therapy Progress Note Speech pathology re-attempted the requested clinical bedside swallowing evaluation at 1020. The patient was lying in bed, asleep at this time. The patient does not wake to maximum verbal stimuli or sternal rub. The patient is snoring but does groan when her name is spoken by the clinician. The patient is not appropriate for participation in the swallowing evaluation at this time. ST will continue to assess the patient daily for appropriateness of participation. RUBI JAMES October 14, 2022 10:33
--- NOTE | 2022-10-14 10:48 | Tele-ICU Progress Note ---
Subjective Date Seen by a Provider: October 14, 2022 Time Seen by a Provider: 10:48 Subjective/Events-last exam (Tele-ICU Physician , Progress Note ) Service provided via interactive audio and video telecommunications E-CARE system to a patient admitted to ICU bed in [facility]. Patient is seen today due to persistent need of ICU care Available chart/ vitals / labs / Images reviewed Video assessment done using teleICU camera, rest of exam as per RN Discussed with RN Events overnight : Afebrile hemodynamically stable Respiratory - I/O = Drips: ns 100 Pressors- no Hospital course: 10/12/22 - to ICU with Subacute RIGHT MCA CVA and methamphetamines withdrawal ( pn presedex 10/14 - precedex 1.5 , but reportedly can follow commands intermittently A/P Subacute RIGHT MCA CVA (presented with confusion , left-sided facial droop ( > 48 h ) - not a candidate for any type of tPA or thrombectomy (out of time window - ER MD discussed with [facility], Dr. Louise- additional images recommend , but MRI was not done due to severe agitation - BP controlled -Antithrombotic medication- Plavix methamphetamines withdrawal - precedex precedex 1.5 , precedex 1.5 , but reportedly can follow commands intermittently -prn haldol -trying to minimize benzo given CVA -slow improvement ECHO fronm 2018 - reported EF 20 % - ? f/up , ? etiology - ? drug in duced - no evidence of CHF now - cont IVF , monitor nutritions - still NPO due to mental status - day 5 - migh need NG for meds and nutrition Lines : midline , (Central Line Necessity Reviewed) [place]: + OG: Nutrition: speach eval Analgesia: Anxiety/ delirium as above VTE Prophylaxis: lovenox Stress Ulcer Prophylaxis: na Plans in collaboration with bedside consultants and IM MDs. Discussed with RN to reach out if any questions or concerns A total of 31 minutes of critical care time was devoted to this patient today, required to treat and/or prevent further deterioration of critical care condition ( as above ) . I am remotely monitoring this patient from another state. I am unable to do the bedside exam, and history/physical and pertinent information is taken from other notes in the computer and bedside staff. . Sepsis Event Evaluation Height, Weight, BMI Height: 5'2.00" Weight: 130lbs. 0.0oz. 58.532326zz; 29.22 BMI Method:Stated Focused Exam Lactate Level 10/13/22 05:58: Lactic Acid Level 1.85 Exam Exam Patient acknowledged, consented, and participated in this virtual visit which was conducted using real time audio/video Vital Signs Date Time Temp Pulse Resp B/P (MAP) Pulse Ox O2 Delivery O2 Flow Rate FiO2 10/14/22 10:00 65 18 122/87 (99) 97 Room Air 10/14/22 09:00 57 19 131/85 (100) 98 Room Air 10/14/22 08:35 68 142/93 10/14/22 08:00 66 12 123/75 (91) 98 Room Air 10/14/22 08:00 36.6 10/14/22 08:00 98 Room Air 10/14/22 07:00 69 14 148/89 (108) 99 Room Air 10/14/22 07:00 68 10/14/22 06:00 68 35 142/93 (115) 97 Room Air 10/14/22 05:00 66 146/83 (106) 99 Room Air 10/14/22 04:45 58 20 138/78 (98) 99 Room Air 10/14/22 04:27 36.4 10/14/22 04:17 63 16 117/75 (97) 99 Room Air 10/14/22 04:00 99 Room Air 10/14/22 03:15 65 12 127/71 (100) Room Air 10/14/22 03:00 61 137/72 10/14/22 02:00 76 18 144/82 (102) 95 Room Air 10/14/22 01:46 90 10/14/22 01:00 66 16 130/78 (101) 95 Room Air 10/14/22 01:00 66 10/14/22 00:00 60 23 112/75 (90) 97 Room Air 10/14/22 00:00 96 Room Air 10/13/22 23:00 67 15 129/72 (96) 95 Room Air 10/13/22 22:53 67 121/77 10/13/22 22:00 74 28 132/93 (113) 95 Room Air 10/13/22 21:00 70 24 122/87 (99) 95 Room Air 10/13/22 20:00 84 36 128/83 (99) 95 Room Air 10/13/22 20:00 98 Room Air 10/13/22 19:52 36.9 10/13/22 19:45 71 35 118/75 (85) 96 Room Air 10/13/22 19:30 60 25 97/66 (68) 97 Room Air 10/13/22 19:15 67 26 115/67 (87) 94 Room Air 10/13/22 19:00 66 10/13/22 19:00 66 28 101/58 (74) 95 Room Air 10/13/22 18:00 61 24 94/51 (65) 95 Room Air 10/13/22 17:00 66 15 107/66 (80) 96 Room Air 10/13/22 16:00 36.9 10/13/22 16:00 97 Room Air 10/13/22 16:00 64 33 106/63 (77) 94 Room Air 10/13/22 15:00 69 16 105/68 (80) 94 Room Air 10/13/22 14:00 69 16 106/66 (79) 95 Room Air 10/13/22 13:00 78 12 99/74 (82) 97 Room Air 10/13/22 12:30 65 10/13/22 12:00 62 19 98/58 (71) 94 Room Air 10/13/22 12:00 36.5 10/13/22 12:00 97 Room Air 10/13/22 11:00 62 18 95/71 (79) 97 Room Air I & O 10/14/22 07:00 Intake Total 1250 ml Output Total 880 ml Balance 370 ml Height & Weight Height: 5'2.00" Weight: 130lbs. 0.0oz. 58.805995vp; 29.22 BMI Method:Stated General Appearance: Anxious, Chronically ill, Other (sedated) Respiratory: Lungs Clear, Normal Breath Sounds, Decreased Breath Sounds Cardiovascular: Regular Rate, Rhythm Capillary Refill: Less Than 3 Seconds Gastrointestinal: normal bowel sounds, non tender, soft; No distended, No guarding, No rebound Extremity: No Pedal Edema Neurologic/Psychiatric: Other (confused, difficult to understand, probably disoriented x 3) Results Lab Laboratory Tests 10/12/22 14:25 10/13/22 04:22 10/14/22 09:40 Assessment/Plan Assessment/Plan 1 JAYSON DAWSON MD October 14, 2022 10:48
[2022-10-14] MEDS: MAGNESIUM 1 GM/100 ML IVPB 100 ML IV SCH (11:03)
[2022-10-14] MEDS: POTASSIUM CL 10MEQ/50ML IVPB 50 ML IV SCH ×4 (11:03→13:42)
[2022-10-14] MEDS: KCL 20 MEQ TAB (K-DUR) PO SCH (11:04)
--- NOTE | 2022-10-14 11:34 | Physical Therapy Progress Note ---
Therapy Progress Note Initiated PT evaluation, nurse in the room. Patient unable to follow commands except to squeeze right hand. She is unable to open her eyes or move in any type of bed mobility or transfers. Will continue to monitor and evaluate when appropriate. SHOLA ROLLE PT October 14, 2022 11:34
--- NOTE | 2022-10-14 12:55 | Consultation-Cardiology ---
HPI-Cardiology Cardiology Consultation Date of Consultation 10/14/22 Date of Admission Time Seen by Provider: 10:48 Indication: CVA HPI Patient is a 52 y/o female with history of CVA, methamphetamine use. Presented to the ER d/t AMS, left sided weakness. Patient is currently sedated and HPI is obtained from family at bedside and review of medical records. The patient smoked meth 2 to 3 days prior to arrival to ER per the boyfriend. She has been confused, laying on the couch, and he states that normally meth makes her more "normal". EMS has been called 3 times, the patient refused 2 other times for transport. The last time she was more confused and was unable to refuse transport. Family member reports patient was hospitalized in [place] in March 2022 for CVA and had been maintained on ASA and Plavix, but had not been compliant with medications at home. Home Medications & Allergies Allergies: Coded Allergies: Penicillins (Verified Allergy, Mild, 08/07/11) Home Medication List Reviewed: Yes LYI-Htcbwn-Rcetxd Hx Patient Social History Marital Status: single Employed/Student: unemployed Smoking Status: Current Everyday Smoker Type Used: Cigarettes 2nd Hand Smoke Exposure: Yes Recent Hopitalizations: Yes ([employer] [place] 05/30, [place], HEART FAILURE) Have you traveled recently?: No Alcohol Use?: Unable to obtain Substance type: Amphetamines, Methamphetamine Family Medical History Significant Family History: No Pertinent Family Hx Review of Systems-General Review of Systems ROS-Unable to Obtain: patient is sedated, unable to obtain ROS Constitutional: see HPI Reviewed Test Results Reviewed Test Results Lab Laboratory Tests 10/13/22 18:02: Glucometer 95 10/14/22 00:17: Glucometer 99 10/14/22 09:40: White Blood Count 8.8, Red Blood Count 4.05, Hemoglobin 12.8#, Hematocrit 36, Mean Corpuscular Volume 89, Mean Corpuscular Hemoglobin 32, Mean Corpuscular Hemoglobin Concent 36, Red Cell Distribution Width 11.5, Platelet Count 223, Me an Platelet Volume 9.9, Immature Granulocyte % (Auto) 0, Neutrophils (%) (Auto) 61, Lymphocytes (%) (Auto) 31, Monocytes (%) (Auto) 7, Eosinophils (%) (Auto) 0, Basophils (%) (Auto) 0, Neutrophils # (Auto) 5.4, Lymphocytes # (Auto) 2.7, Monocytes # (Auto) 0.6, Eosinophils # (Auto) 0.0, Basophils # (Auto) 0.0, Immature Granulocyte # (Auto) 0.0, Sodium Level 138, Potassium Level 3.4L, Chloride Level 111H, Carbon Dioxide Level 20L, Anion Gap 7, Blood Urea Nitrogen 17, Creatinine 0.76, Estimat Glomerular Filtration Rate 95, BUN/Creatinine Ratio 22, Glucose Level 91, Calcium Level 7.9L, Corrected Calcium 8.7, Phosphorus Level 3.1, Magnesium Level 1.6, Total Bilirubin 0.6, Aspartate Amino Transf (AST/SGOT) 21, Alanine Aminotransferase (ALT/SGPT) 12, Alkaline Phosphatase 79, Total Protein 5.4L, Albumin 3.0L 10/14/22 12:57: Glucometer 99 Physical Exam Physical Exam Vital Signs Vital Signs - First Documented 10/12/22 10/12/22 12:51 16:02 Temp 36.5 Pulse 88 Resp 16 B/P (MAP) 103/62 (76) Pulse Ox 97 O2 Delivery Room Air Capillary Refill : Less Than 3 Seconds Height, Weight, BMI Height: 5'2.00" Weight: 130lbs. 0.0oz. 58.761532pr; 29.22 BMI Method:Stated General Appearance: No Apparent Distress, Chronically ill, Other (sedated) Neck: Supple Respiratory: Lungs Clear, Normal Breath Sounds, Decreased Breath Sounds Cardiovascular: Regular Rate, Rhythm Extremity: No Pedal Edema Neurologic/Psychiatric: Other (sedated) A/P-Cardiology Admission Diagnosis CVA Methamphetamine use Medical noncompliance Assessment/Plan CVA, history of CVA in the past. Had been maintained on ASA and Plavix, but noncompliant with medications at home. CT Head done showing right sided subacute CVA. Patient with left arm flaccidity. Currently on ASA. I will evaluate 2D Echo. Consider MRI Methamphetamine use, patient had been agitated on admission, likely meth withdrawal. Currently sedated. HLP, started on statin. Continue to monitor. Medical noncompliance Thank you for allowing us to participate in the management of Ms. Parr. This is Lisa Mcmahon PA-C, as a scribe for Dr. Penaloza Patient was seen and evaluated with Lisa, she was sedated during my evaluation She has been laying down in bed. Asymptomatic Had history of CVA and has been noncompliant with her aspirin and Plavix 2D echo showed contrast crossing through patent [place]. Patient need to continue on aspirin and Plavix Monitor blood pressure Avoid illicit drug use Start aggressive statin and beta-blockers Recommend compliance. LISA ANDERSEN October 14, 2022 12:55 ALIYAH PENALOZA MD October 14, 2022 15:16
[2022-10-14] MEDS: ENOXAPARIN 40 MG/0.4 ML (LOVENOX) SYR SC SCH (16:29)
[2022-10-14] MEDS: HALOPERIDOL 5 MG/ML (HALDOL) VIAL IM/IV PRN ×2 (17:44→22:48)
[2022-10-15] MEDS: HYDROmorphone 2 MG/ML VIAL (DILAUDID) IV PRN ×3 (00:13→12:20)
[2022-10-15 03:47] LABS: BASOPHILS % (AUTO) 0 % (0-10); EOSINOPHILS % (AUTO) 0 % (0-10); HEMATOCRIT 35 % (35-52); HEMOGLOBIN 12.5 g/dL (11.5-16.0); LYMPHOCYTES # (AUTO) 1.8 10^3/uL (1.0-4.0); LYMPHOCYTES % (AUTO) 27 % (12-44); MEAN CORPUSCULAR HEMOGLOBIN 31 pg (25-34); MEAN CORPUSCULAR HGB CONC 36 g/dL (32-36); MEAN CORPUSCULAR VOLUME 87 fL (80-99); MEAN PLATELET VOLUME 9.6 fL (9.0-12.2); MONOCYTES # (AUTO) 0.5 10^3/uL (0.0-1.0); MONOCYTES % (AUTO) 7 % (0-12); NEUTROPHILS # (AUTO) 4.4 10^3/uL (1.8-7.8); NEUTROPHILS % (AUTO) 65 % (42-75); PLATELET COUNT 222 10^3/uL (130-400); WHITE BLOOD COUNT 6.8 10^3/uL (4.3-11.0)
[2022-10-15 04:09] LABS: ALBUMIN 2.9 GM/DL (3.2-4.5); BILIRUBIN,TOTAL 0.5 MG/DL (0.1-1.0); CALCIUM 7.8 MG/DL (8.5-10.1); CREATININE SERUM 0.66 MG/DL (0.60-1.30); MAGNESIUM 1.5 MG/DL (1.6-2.4); PHOSPHORUS 3.9 MG/DL (2.3-4.7); POTASSIUM 3.6 MMOL/L (3.6-5.0); TOTAL PROTEIN 5.3 GM/DL (6.4-8.2)
[2022-10-15] MEDS ORDERED: MAGNESIUM 1 GM/100 ML IVPB 400 ML IV ONE (04:15)
[2022-10-15] MEDS ORDERED: POTASSIUM CL 10MEQ/50ML IVPB 200 ML IV ONE (04:16)
[2022-10-15] MEDS: NS IV 1000 ML 1,000 ML IV SCH (04:20)
[2022-10-15] MEDS: POTASSIUM CL 10MEQ/50ML IVPB 50 ML IV SCH ×4 (04:21→06:12)
[2022-10-15] MEDS: MAGNESIUM 1 GM/100 ML IVPB 100 ML IV SCH ×4 (04:21→06:12)
[2022-10-15] MEDS: KCL 20 MEQ TAB (K-DUR) PO SCH (04:35)
--- NOTE | 2022-10-15 05:12 | Progress Note - Hospitalist ---
Subjective HPI/CC On Admission Date Seen by Provider: October 15, 2022 Time Seen by Provider: 10:00 CC: CVA with methamphetamine withdrawal HPI: This is a 52yoWF clinic patient of [facility] and known meth user and h/o CVA who presented to the ER with left sided weakness for 3 days. [place] stroke neuro assessed the patient to not be a tPa candidate. Patient is a heavy user of meth and non-compliant with Plavix and ASA. She cannot tolerate MRI at this time and will be maintained on Precedex due to aggression. Subjective/Events-last exam Improved Precedex weaning off Hopefully will be able to swallow once alert Partner at bedside ARU eval ordered PT OT ST ordered Review of Systems Neurological: Weakness, Confusion Focused Exam Lactate Level 10/13/22 05:58: Lactic Acid Level 1.85 Objective Exam Vital Signs Vital Signs Date Time Temp Pulse Resp B/P (MAP) Pulse Ox O2 Delivery O2 Flow Rate FiO2 10/15/22 11:00 53 7 93/65 (74) 100 Room Air 10/15/22 07:36 36.3 10/12/22 19:18 Capillary Refill : Less Than 3 Seconds General Appearance: No Apparent Distress, WD/WN, Chronically ill, Other (asleep) Respiratory: Lungs Clear, Normal Breath Sounds Cardiovascular: Regular Rate, Rhythm Neurologic/Psychiatric: Motor Weakness Results/Procedures Lab Laboratory Tests 10/15/22 03:35 Patient resulted labs reviewed. Assessment/Plan Assessment and Plan Assess & Plan/Chief Complaint Assessment: Right sided CVA subacute with left sided weakness now with presumed extension of CVA with left arm flaccidity Meth withdrawal CVA hx non-compliant with Plavix and ASA Plan: ICU with Precedex but wean PT OT when able Sedation if aggressive from meth withdrawal Prognosis poor DVT PPx Cardiology consultation ARU Critical Care Critically Ill Patient EMORY BERNAL DO October 15, 2022 05:12
[2022-10-15 05:26] VITALS: BP 139/78
[2022-10-15] MEDS: DexMEDEtomidine 250 ML DRIP 250 ML IV SCH (05:26)
[2022-10-15] MEDS: ASPIRIN 325 MG (5 GR) TABLET PO SCH (07:32)
[2022-10-15] MEDS: SENNOSIDES 8.6 MG (SENOKOT) TAB PO SCH (07:33)
[2022-10-15] MEDS: DOCUSATE SODIUM 100 MG (COLACE) CAP PO SCH (07:33)
[2022-10-15] MEDS: CLOPIDOGREL 75 MG (PLAVIX) TABLET PO SCH (07:33)
[2022-10-15] MEDS: NS IV 500 ML 500 ML IV SCH (07:34)
--- NOTE | 2022-10-15 07:43 | Physical Therapy Progress Note ---
Therapy Progress Note Patient on Hold per RN due to sedation due to agitation. PT will continue to monitor patient's status and initiate treatment when patient is able to actively participate with skilled therapy. VALDEMAR LEE PT October 15, 2022 07:43
--- NOTE | 2022-10-15 08:23 | Cardiology Progress Note ---
Subjective Date Seen by Provider: October 15, 2022 Time Seen by Provider: 08:19 Subjective/Events-last exam Patient is laying down in bed, lethargic, not following commands. Review of Systems General: Other (Unable to provide review of system) Focused Exam Lactate Level 10/13/22 05:58: Lactic Acid Level 1.85 Objective-Cardiology Exam Last Set of Vital Signs Vital Signs 10/15/22 10/15/22 07:31 07:36 Temp 36.3 Pulse 51 Resp 28 B/P (MAP) 87/50 (62) Pulse Ox 96 O2 Delivery Room Air I&O Intake and Output 10/14/22 23:59 Intake Total 0 ml Output Total 1550 ml Balance -1550 ml Intake Oral 0 ml Output Urine Total 1550 ml General: Alert, Mild Distress, Other (Not following commands) HEENT: Atraumatic, PERRLA Neck: Supple Lungs: Clear to Auscultation, Normal Air Movement Heart: Regular Rate, Normal S1, Normal S2 Abdomen: No Tenderness Extremities: No Clubbing, No Cyanosis Skin: No Rashes, No Breakdown Neuro: Other (Not following command moving her right arm) Psych/Mental Status: Other (Not responding to questions) Results Lab Laboratory Tests 10/14/22 09:40 10/15/22 03:35 A/P-Cardiology Admission Diagnosis CVA Methamphetamine use Medical noncompliance Assessment/Plan Acute CVA CVA, history of CVA in the past. Had been maintained on ASA and Plavix, but noncompliant with medications at home. CT Head done showing right sided subacute CVA. Patient with left arm flaccidity. Most probably secondary to patent [place] with bidirectional shunt Continue on aspirin and Plavix 2D echo was done on October 14, 2022, dilated left ventricle with severe hypokinesia with ejection fraction 25 to 30%, left atrial dilatation, patent casper [place], bidirectional shunt, PA pressure 30 mmHg Dilated cardiomyopathy, acute left ventricular systolic dysfunction, unknown et iology Could be secondary to coronary artery disease versus methamphetamine use We will start low-dose beta-blockers and ARB Starting aspirin and Plavix We will consider stress testing once her mental status is stable or it can be done as an outpatient Methamphetamine use, patient had been agitated on admission, likely meth withdrawal. Currently sedated. HLP, started on statin. Continue to monitor. Medical noncompliance ALIYAH FOSTER MD October 15, 2022 08:23
[2022-10-15] MEDS ORDERED: ASPIRIN 300 MG (5 GR) SUPPOSITORY PR SCH (09:00)
[2022-10-15] MEDS ORDERED: LOSARTAN 25 MG (COZAAR) TAB PO SCH (09:00)
--- NOTE | 2022-10-15 10:21 | Tele-ICU Progress Note ---
Subjective Date Seen by a Provider: October 15, 2022 Time Seen by a Provider: 10:21 Subjective/Events-last exam (Tele-ICU Physician , Progress Note ) Service provided via interactive audio and video telecommunications E-CARE system to a patient admitted to ICU bed in [facility]. Patient is seen today due to persistent need of ICU care Available chart/ vitals / labs / Images reviewed Video assessment done using teleICU camera, rest of exam as per RN Discussed with RN Events overnight : Afebrile hemodynamically stable Respiratory - ra I/O = Drips: ns 100 Pressors- no Hospital course: 10/12/22 - to ICU with Subacute RIGHT MCA CVA and methamphetamines withdrawal ( pn presedex 10/14 - precedex 1.5 , but reportedly can follow commands intermittently 10/15 - precedex 0.4 A/P Subacute RIGHT MCA CVA (presented with confusion , left-sided facial droop ( > 48 h ) - not a candidate for any type of tPA or thrombectomy (out of time window - ER MD discussed with [facility], Dr. Louise- additional images recommend , but MRI was not done due to severe agitation - BP controlled -Antithrombotic medication- Had been maintained on ASA and Plavix, but noncompliant methamphetamines withdrawal - precedex precedex 1.5 , precedex 1.5 , but reportedly can follow commands intermittently -prn haldol -trying to minimize benzo given CVA -slow improvement CM - 10/14/22 EF 20 % - etiology - ? drug induced - no evidence of CHF now - cont IVF , monitor - cards follow nutritions - still NPO due to mental status - [facility] for meds and nutrition- hopefully can have speech eval post CVA Lines : midline , (Central Line Necessity Reviewed) Hoover: + OG: Nutrition: speach eval Analgesia: Anxiety/ delirium as above VTE Prophylaxis: lovenox Stress Ulcer Prophylaxis: na Plans in collaboration with bedside consultants and IM MDs. Discussed with RN to reach out if any questions or concerns A total of 31 minutes of critical care time was devoted to this patient today, required to treat and/or prevent further deterioration of critical care condition ( as above ) . I am remotely monitoring this patient from another state. I am unable to do the bedside exam, and history/physical and pertinent information is taken from other notes in the computer and bedside staff. Sepsis Event Evaluation Height, Weight, BMI Height: 5'2.00" Weight: 130lbs. 0.0oz. [id number]; 29.22 BMI Method:Stated Focused Exam Lactate Level 10/13/22 05:58: Lactic Acid Level 1.85 Exam Exam Patient acknowledged, consented, and participated in this virtual visit which was conducted using real time audio/video Vital Signs Date Time Temp Pulse Resp B/P (MAP) Pulse Ox O2 Delivery O2 Flow Rate FiO2 10/15/22 09:00 49 11 84/55 (65) 97 Room Air 10/15/22 08:00 99 Room Air 10/15/22 08:00 53 8 93/54 (67) 100 Room Air 10/15/22 07:36 36.3 10/15/22 07:31 51 28 87/50 (62) 96 Room Air 10/15/22 07:30 54 10/15/22 06:00 54 25 95/55 (68) 100 Room Air 10/15/22 05:26 60 139/78 10/15/22 05:00 58 22 98/60 (73) 100 Room Air 10/15/22 04:00 99 Room Air 10/15/22 04:00 36.2 10/15/22 04:00 60 26 139/78 (98) 100 Room Air 10/15/22 03:00 59 23 126/73 (90) 100 Room Air 10/15/22 02:00 62 27 115/65 (82) 100 Room Air 10/15/22 01:00 60 10/15/22 01:00 63 23 121/68 (85) 97 Room Air 10/15/22 00:15 36.3 10/15/22 00:00 61 22 128/74 (92) 99 Room Air 10/15/22 00:00 99 Room Air 10/14/22 23:00 63 22 148/86 (106) 100 Room Air 10/14/22 22:00 66 31 144/91 (108) 100 Room Air 10/14/22 21:00 70 16 141/86 (104) 100 Room Air 10/14/22 20:00 99 Room Air 10/14/22 20:00 65 16 146/94 (111) 100 Room Air 10/14/22 19:57 71 122/74 10/14/22 19:57 36.4 10/14/22 19:00 70 15 117/75 (89) 99 Room Air 10/14/22 19:00 71 10/14/22 18:00 66 14 122/74 (90) 99 Room Air 10/14/22 17:00 65 15 103/91 (95) 99 Room Air 10/14/22 16:00 66 17 128/70 (89) 98 Room Air 10/14/22 15:40 99 Room Air 10/14/22 15:00 69 18 102/67 (79) 96 Room Air 10/14/22 14:00 61 112/67 (82) 100 Room Air 10/14/22 13:00 61 27 115/73 (87) 100 Room Air 10/14/22 13:00 61 10/14/22 12:35 61 115/73 10/14/22 12:00 36.6 59 117/73 (88) 99 Room Air 10/14/22 12:00 99 Room Air 10/14/22 11:00 61 12 121/72 (88) 98 Room Air I & O 10/15/22 06:59 Intake Total 0 ml Output Total 1750 ml Balance -1750 ml Height & Weight Height: 5'2.00" Weight: 130lbs. 0.0oz. 58.906416ii; 29.22 BMI Method:Stated General Appearance: No Apparent Distress, Chronically ill, Other (sedated) Neck: Supple Respiratory: Lungs Clear, Normal Breath Sounds, Decreased Breath Sounds Cardiovascular: Regular Rate, Rhythm Capillary Refill: Less Than 3 Seconds Gastrointestinal: normal bowel sounds, non tender, soft; No distended, No guarding, No rebound Extremity: No Pedal Edema Neurologic/Psychiatric: Other (sedated) Results Lab Laboratory Tests 10/14/22 09:40 10/15/22 03:35 Assessment/Plan Assessment/Plan 1 JAYSON DAWSON MD October 15, 2022 10:21
--- NOTE | 2022-10-15 12:09 | Speech Therapy Progress Note ---
Therapy Progress Note Speech pathology re-attempted the swallowing evaluation at 0910. At this time, the patient is not appropriate for participation in the assessment. ST will continue to attempt the evaluation as the patient is able to appropriately participate. RUBI JAMES October 15, 2022 12:09
[2022-10-15] MEDS: HALOPERIDOL 5 MG/ML (HALDOL) VIAL IM/IV PRN ×2 (12:22→16:05)
[2022-10-15] MEDS: MIDAZOLAM 5 MG/5 ML (VERSED) VIAL IVP PRN (13:49)
[2022-10-15] MEDS ORDERED: LACTATED RINGERS 1,000 ML IV SCH (14:00)
[2022-10-15] MEDS ORDERED: LOSA25TA41 PO (14:50)
[2022-10-15] MEDS ORDERED: CARV3.122 PO (14:50)
[2022-10-15] MEDS ORDERED: ASPI-808 PO (14:50)
[2022-10-15] MEDS ORDERED: ENOX40DI8 SC (14:50)
[2022-10-15] MEDS ORDERED: ATOR80TA76 PO (14:50)
[2022-10-15] MEDS ORDERED: CLOP75TA28 PO (14:50)
--- NOTE | 2022-10-15 14:50 | Discharge Summary ---
Discharge Summary Hospital Course Was the Problem List Reviewed?: Yes Problems/Dx: (1) CVA (cerebral vascular accident) Qualifiers: Qualified Codes: I63.511 - Cerebral infarction due to unspecified occlusion or stenosis of right middle cerebral artery (2) History of methamphetamine abuse Status: Acute Hospital Course Date of Admission: October 12, 2022 at 15:58 Admission Diagnosis : Family Physician/Provider: [place] Date of Discharge: 10/15/22 Discharge Diagnosis: [ ] Hospital Course: Standard course after she was admitted following a CVA with meth use complicating the situation requiring ICU admit and Precedex to control the aggression. Left arm remained flaccid but during agitation she moved all extremities except left arm. BP and vitals remained stable and did not need O2 supp. Overall she remained stable but due to continued encephalopathy and no neuro consultation services she was transferred to [place] where they have neuro services. Labs and Pending Lab Test: Laboratory Tests 10/14/22 18:30: Glucometer 92 10/14/22 23:35: Glucometer 87 10/15/22 03:35: White Blood Count 6.8, Red Blood Count 4.01, Hemoglobin 12.5, Hematocrit 35, Mean Corpuscular Volume 87, Mean Corpuscular Hemoglobin 31, Mean Corpuscular Hemoglobin Concent 36, Red Cell Distribution Width 11.3, Platelet Count 222, Mean Platelet Volume 9.6, Immature Granulocyte % (Auto) 0, Neutrophils (%) (Auto) 65, Lymphocytes (%) (Auto) 27, Monocytes (%) (Auto) 7, Eosinophils (%) (Auto) 0, Basophils (%) (Auto) 0, Neutrophils # (Auto) 4.4, Lymphocytes # (Auto) 1.8, Monocytes # (Auto) 0.5, Eosinophils # (Auto) 0.0, Basophils # (Auto) 0.0, Immature Granulocyte # (Auto) 0.0, Sodium Level 136, Potassium Level 3.6, Chloride Level 111H, Carbon Dioxide Level 16L, Anion Gap 9, Blood Urea Nitrogen 13, Creatinine 0.66, Estimat Glomerular Filtration Rate 107, BUN/Creatinine Ratio 20, Glucose Level 89, Calcium Level 7.8L, Corrected Calcium 8.7, Phosp horus Level 3.9, Magnesium Level 1.5L, Total Bilirubin 0.5, Aspartate Amino Transf (AST/SGOT) 20, Alanine Aminotransferase (ALT/SGPT) 10, Alkaline Phosphatase 84, Total Protein 5.3L, Albumin 2.9L 10/15/22 11:35: Glucometer 71 Home Meds Active Aspirin 325 Mg Tablet 325 Mg PO DAILY 30 Days Losartan Potassium 25 Mg Tablet 25 Mg PO DAILY 30 Days Carvedilol 3.125 Mg Tablet 3.125 Mg PO BID 30 Days Atorvastatin Calcium 80 Mg Tablet 80 Mg PO DAILY 30 Days Clopidogrel (Clopidogrel Bisulfate) 75 Mg Tablet 75 Mg PO DAILY 30 Days Enoxaparin Sodium 40 Mg/0.4 Ml Syringe 40 Mg SC Q24H 30 Days Assessment/Pt Instructions [place] with Neurology Discharge Planning: <30 minutes discharge planning Discharge Physical Examination Vital Signs Vital Signs Date Time Temp Pulse Resp B/P (MAP) Pulse Ox O2 Delivery O2 Flow Rate FiO2 10/15/22 14:00 73 26 98/62 (74) 96 Room Air 10/15/22 12:00 36.0 10/12/22 19:18 Allergies: Coded Allergies: Penicillins (Verified Allergy, Mild, 08/07/11) Discharge Summary Date of Admission October 12, 2022 at 15:58 Date of Discharge Discharge Date: October 15, 2022 Admission Diagnosis Assessment: Right sided CVA subacute with left sided weakness Meth withdrawal CVA hx Plan: ICU Precedex Sedation Discharge Diagnosis Assessment: Right sided CVA subacute with left sided weakness now with presumed extension of CVA with left arm flaccidity Meth withdrawal CVA hx non-compliant with Plavix and ASA Plan: ICU with Precedex but wean PT OT when able Sedation if aggressive from meth withdrawal Prognosis poor DVT PPx Cardiology consultation EMORY ZAMAN DO October 15, 2022 14:50
== END 2022-10-15 16:10 | disposition short-term general hospital (02) | DRG 65 ==
LOC: EDUNIT# 12:50 → ER 12:51 → ICU 15:58
PROVIDERS: ADMIT Internal Medicine; ATTEND Internal Medicine
DX: I63.511 Cerebral infarction due to unspecified occlusion or stenosis of right middle cerebral artery (principal); F15.93 Other stimulant use, unspecified with withdrawal; G81.04 Flaccid hemiplegia affecting left nondominant side; I42.0 Dilated cardiomyopathy; G93.40 Encephalopathy, unspecified; Q21.12 Patent foramen ovale; R29.810 Facial weakness; R29.705 NIHSS score 5; F17.210 Nicotine dependence, cigarettes, uncomplicated; I25.10 Atherosclerotic heart disease of native coronary artery without angina pectoris; I10 Essential (primary) hypertension; F41.9 Anxiety disorder, unspecified; Z95.5 Presence of coronary angioplasty implant and graft; M19.90 Unspecified osteoarthritis, unspecified site; I25.2 Old myocardial infarction; Z96.641 Presence of right artificial hip joint; Z79.82 Long term (current) use of aspirin; Z79.899 Other long term (current) drug therapy; Z88.0 Allergy status to penicillin
CPT/HCPCS: 36410; 36415; 70450; 71045; 76937; 80053; 80061; 80306; 80320; 80329; 81000; 82947; 83605; 83690; 83735; 84100; 84484; 84703; 85025; 85610; 85730; 86141; 93005; 93041; 93306

== ENCOUNTER 2022-10-24 08:36 | Emergency (ER) | payer MEDICAID ==
[~2022-10-24] VITALS: Ht 160 cm; Wt 81.6 kg
[~2022-10-24 08:36] MED LIST changes: +ASPI-808 PO; +ATOR80TA76 PO; +CLOP75TA28 PO; +ENOX40DI8 SC; +LOSA25TA41 PO
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
[2022-10-24] MEDS ORDERED: hydrOXYzine (VISTARIL/ATARAX) 25 MG capsule/tablet PO ONE (09:15)
[2022-10-24] MEDS ORDERED: HYDR-3584 PO (09:43)
[2022-10-24 10:23] VITALS: BP 115/85
== END 2022-10-24 10:23 | disposition home or self-care (01) ==
LOC: EDUNIT# 08:36 → ER 08:37
DX: F41.0 Panic disorder [episodic paroxysmal anxiety] (principal); G81.94 Hemiplegia, unspecified affecting left nondominant side; Z86.73 Personal history of transient ischemic attack (TIA), and cerebral infarction without residual deficits; Z79.82 Long term (current) use of aspirin; Z28.310 Unvaccinated for COVID-19
CPT/HCPCS: 99283

== ENCOUNTER 2022-11-06 07:39 | Emergency (ER) | payer MEDICAID ==
[~2022-11-06] VITALS: Ht 157 cm; Wt 72.0 kg
[~2022-11-06 07:39] MED LIST changes: +HYDR-3584 PO
[2022-11-06 08:09] LABS: BASOPHILS % (AUTO) 1 % (0-10); EOSINOPHILS # (AUTO) 0.1 10^3/uL (0.0-0.3); EOSINOPHILS % (AUTO) 1 % (0-10); HEMATOCRIT 44 % (35-52); HEMOGLOBIN 15.3 g/dL (11.5-16.0); LYMPHOCYTES # (AUTO) 2.9 10^3/uL (1.0-4.0); LYMPHOCYTES % (AUTO) 37 % (12-44); MEAN CORPUSCULAR HEMOGLOBIN 31 pg (25-34); MEAN CORPUSCULAR HGB CONC 35 g/dL (32-36); MEAN CORPUSCULAR VOLUME 90 fL (80-99); MEAN PLATELET VOLUME 9.6 fL (9.0-12.2); MONOCYTES # (AUTO) 0.6 10^3/uL (0.0-1.0); MONOCYTES % (AUTO) 8 % (0-12); NEUTROPHILS # (AUTO) 4.2 10^3/uL (1.8-7.8); NEUTROPHILS % (AUTO) 54 % (42-75); PLATELET COUNT 288 10^3/uL (130-400); WHITE BLOOD COUNT 7.8 10^3/uL (4.3-11.0)
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
[2022-11-06 08:25] LABS: ALBUMIN 3.9 GM/DL (3.2-4.5); CHLORIDE 106 MMOL/L (98-107); POTASSIUM 3.8 MMOL/L (3.6-5.0); SODIUM 140 MMOL/L (135-145)
[2022-11-06 08:26] LABS: CALCIUM 9.7 MG/DL (8.5-10.1)
[2022-11-06 08:27] LABS: GLUCOSE 106 MG/DL (70-105)
[2022-11-06 08:28] LABS: CARBON DIOXIDE 22 MMOL/L (21-32); TOTAL PROTEIN 6.7 GM/DL (6.4-8.2)
[2022-11-06 08:29] LABS: BILIRUBIN,TOTAL 0.5 MG/DL (0.1-1.0)
[2022-11-06 08:31] LABS: ALKALINE PHOSPHATASE 103 U/L (40-136); CREATININE SERUM 0.71 MG/DL (0.60-1.30); GFR ESTIMATED 104
[2022-11-06 08:32] LABS: BUN/CREATININE RATIO 6
[2022-11-06 08:34] LABS: ALANINE AMINOTRANSFERASE 30 U/L (0-55); MAGNESIUM 1.9 MG/DL (1.6-2.4)
[2022-11-06] MEDS ORDERED: LACTATED RINGERS 1,000 ML IV ONE (09:00)
--- NOTE | 2022-11-06 09:05 | Diagnostic Imaging Report ---
PROCEDURE: CT head without contrast. TECHNIQUE: Multiple contiguous axial images were obtained through the brain without the use of intravenous contrast. Auto Exposure Controls were utilized during the CT exam to meet ALARA standards for radiation dose reduction. INDICATION: Stroke, left-sided weakness COMPARISON: 10/13/2019 FINDINGS: Prominent hypodensity within the lateral aspect of the left cerebellar hemisphere is again identified and unchanged. The previously noted ill-defined hypodensity within the distribution of the right middle cerebral artery noted on prior examination has decreased in size since the prior examination. Curvilinear hyperdensities within this region are noted appearing slightly more prominent than the prior exam. No large volume intracranial hemorrhage. No significant midline shift, herniation, or hydrocephalus. The orbits are unremarkable. The paranasal sinuses are clear. The calvarium and extracalvarial soft tissues are unremarkable. IMPRESSION: Temporal evolution of previously and recently suspected right middle cerebral artery distribution subacute infarction. Overall size appears less prominent than the prior exam. Some persisting curvilinear hyperdensities are present within this region, which appear minimally increased from prior examination. These curvilinear hyperdensities may relate to blood clots within M2 and M3 branches. Alternatively, developing cortical laminar necrosis is an additional consideration. Minimal petechial hemorrhage within the region felt less likely. Chronic infarction within the left cerebellar hemisphere is again noted. Should there remain clinical concern, further evaluation with MRI of the brain would be recommended. Dictated by: Dictated on workstation # [id number]
[2022-11-06 10:35] LABS: BILIRUBIN,URINE NEGATIVE (NEGATIVE); CLARITY,URINE CLEAR; COLOR,URINE YELLOW; GLUCOSE, URINE (UA) NEGATIVE (NEGATIVE); KETONES,URINE NEGATIVE (NEGATIVE); LEUKOCYTE ESTERASE ,URINE TRACE (NEGATIVE); NITRITE,URINE NEGATIVE (NEGATIVE); PH,URINE 6.5 (5-9); PROTEIN,URINE NEGATIVE (NEGATIVE)
[2022-11-06 10:44] LABS: BACTERIA,URINE TRACE /HPF; SQUAMOUS EPITHELIAL CELL,UR 0-2 /HPF; WBC,URINE RARE /HPF
[2022-11-06 10:49] LABS: AMPHETAMINE SCREEN, URINE NEGATIVE (NEGATIVE); BARBITURATE SCREEN URINE NEGATIVE (NEGATIVE); BENZODIAZEPINES SCREEN URINE NEGATIVE (NEGATIVE); CANNABINOID SCREEN, URINE NEGATIVE (NEGATIVE); COCAINE SCREEN URINE NEGATIVE (NEGATIVE); METHADONE STAT NEGATIVE (NEGATIVE); OPIATE SCREEN URINE POSITIVE (NEGATIVE); OXYCODONE STAT NEGATIVE (NEGATIVE); PROPOXYPHENE STAT NEGATIVE (NEGATIVE); TRICYCLIC ANTIDEPRESSANTS SCRE NEGATIVE (NEGATIVE)
[2022-11-06 12:00] VITALS: BP 108/78
== END 2022-11-06 12:00 | disposition home or self-care (01) ==
LOC: EDUNIT# 07:39 → ER 07:40
DX: I63.9 Cerebral infarction, unspecified (principal); G81.94 Hemiplegia, unspecified affecting left nondominant side; I10 Essential (primary) hypertension; R11.2 Nausea with vomiting, unspecified; R61 Generalized hyperhidrosis; F17.210 Nicotine dependence, cigarettes, uncomplicated; Z28.310 Unvaccinated for COVID-19
CPT/HCPCS: 36415; 70450; 80053; 80306; 80320; 81000; 82947; 83735; 85025; 93005; 93041

== ENCOUNTER 2022-11-26 10:38 | Outpatient (RCR) | payer MEDICAID | END 2022-11-27 | disposition home or self-care (01) | PROVIDERS: ATTEND Nurse Practitioner Family | DX: I69.354 Hemiplegia and hemiparesis following cerebral infarction affecting left non-dominant side (principal); I61.9 Nontraumatic intracerebral hemorrhage, unspecified ==

== ENCOUNTER → 2022-12-28 | Outpatient (RCR) | payer MEDICAID | END | disposition home or self-care (01) | PROVIDERS: ATTEND Nurse Practitioner Family | DX: I69.30 Unspecified sequelae of cerebral infarction (principal); I61.9 Nontraumatic intracerebral hemorrhage, unspecified ==

== ENCOUNTER → 2023-01-07 | Outpatient (CLI) | payer MEDICAID ==
--- NOTE | 2023-01-07 15:09 | Diagnostic Imaging Report ---
INDICATION: Shoulder pain with no specific injuries. EXAMINATION: MRI of the left shoulder without contrast, 01/07/2023. FINDINGS: Examination is incomplete within the axial and sagittal sequences obtained. No coronal imaging provided as patient could not tolerate continued imaging due to pain. This markedly limits evaluation, especially of the rotator cuff. The subscapularis tendon demonstrates a partial-thickness intrasubstance tear with medial dislocation of the long head of biceps tendon into the intrasubstance of the subscapularis tendon. The biceps tendon, itself, more distally lies in the bicipital groove. It does contain a focus of longitudinal split tear versus intrasubstance tear. No complete discontinuity appreciated. The labrum poorly evaluated without contrast; however, high signal is seen both anteriorly and superiorly. If there is concern for a labral tear post-arthrogram, MRI could provide further characterization, if clinically indicated. Integrity of the supraspinatus and infraspinatus tendons cannot be ascertained given the lack of coronal imaging and marked motion artifact on the sagittal proton-density fat-saturated sequence. For the most part the infraspinatus tendon and posterior supraspinatus tendon intact. A tear of the anterior supraspinatus tendon cannot be excluded. There is a fair amount of fluid in the subcoracoid recess. There is a small effusion in the glenohumeral joint. Minimal atrophy of the supraspinatus muscle is noted with remaining musculature maintained. Nonspecific prominent lymph nodes seen within the visualized axilla. IMPRESSION: 1. Limited evaluation as this is an incomplete examination. Supraspinatus and infraspinatus tendons poorly evaluated with no obvious retracted tears appreciated. When patient is able, complete imaging of the shoulder recommended. 2. Partial-thickness intrasubstance tear of the subscapular tendon with medial dislocation of the biceps tendon, as above. In addition, longitudinal split tear versus intrasubstance tear of the biceps tendon also noted. 3. Suspected labral tear although examination is limited, see above discussion and recommendation. Other findings as above. This includes lymphadenopathy in the visualized axilla which is nonspecific and should be evaluated clinically. Dictated on workstation # [id number]
== END ==
LOC: RAD 12:50
PROVIDERS: ATTEND Nurse Practitioner Family
DX: M75.112 Incomplete rotator cuff tear or rupture of left shoulder, not specified as traumatic (principal)
CPT/HCPCS: 73221

== ENCOUNTER → 2023-01-28 | Outpatient (RCR) | payer MEDICAID | END | disposition home or self-care (01) | PROVIDERS: ATTEND Nurse Practitioner Family | DX: I69.30 Unspecified sequelae of cerebral infarction (principal); I61.9 Nontraumatic intracerebral hemorrhage, unspecified; I10 Essential (primary) hypertension ==

== ENCOUNTER 2023-03-25 09:00 | Outpatient (RCR) | payer MEDICAID ==
[2023-03-31] MEDS ORDERED: DULO60CA59 PO (12:31)
[2023-03-31] MEDS ORDERED: ASPI-1238 PO (12:31)
[2023-03-31] MEDS ORDERED: GABA300C PO (12:31)
[2023-03-31] MEDS ORDERED: ATOR80TA76 PO (12:31)
[2023-03-31] MEDS ORDERED: BACL10TA PO (12:31)
[2023-03-31] MEDS ORDERED: ERGO1250 PO (12:31)
[2023-03-31] MEDS ORDERED: HYDR-700 PO (12:31)
[2023-03-31] MEDS ORDERED: CLOP75TA28 PO (12:32)
== END 2023-03-30 | disposition home or self-care (01) ==
PROVIDERS: ATTEND Nurse Practitioner Family
DX: I69.354 Hemiplegia and hemiparesis following cerebral infarction affecting left non-dominant side (principal); I69.30 Unspecified sequelae of cerebral infarction

== ENCOUNTER 2023-03-29 08:22 | Inpatient (IN) | payer MEDICAID ==
[~2023-03-29] VITALS: Ht 152.4 cm; Wt 71.6 kg
[2023-03-29] MEDS ORDERED: NS IV 1000 ML 1,000 ML IV STA (08:40)
--- NOTE | 2023-03-29 08:48 | ED General ---
General Stated Complaint: SUICIDAL IDEATIONS Source of Information: EMS Exam Limitations: Intoxication, Physical Impairments History of Present Illness Date Seen by Provider: Mar 29, 2023 Time Seen by Provider: 08:22 Initial Comments Patient is a 53-year-old female who presents to the emergency room by ambulance chief complaint of concern for overdose. Patient has had history of prior MCA stroke with left-sided hemiparesis. She reportedly lives at home with her boyfriend, "Ara". Allegedly she took an unknown quantity of 10 mg baclofen tablets. Unknown at what time. Family reportedly called EMS. No family members are available at this time for history. History is primarily from EMS. if we consider 90 pills filled on 03/25/23 she at most could have taken 12 tablets which would leave a possible 780mg total of baclofen taken. She filled a 90 pill prescription on March 25. The pill bottle was empty next to her in the room in which she was found. When I am able to arouse her, most of her answers are "I do not know". When I asked her if she was attempting suicide she says yes. When I asked her her reasons she again says "I do not know". She is quite somnolent rousable to moderate physical stimuli. Pupils appear equal at 3 to 4 mm. She is maintaining room air oxygen saturations at 97%. Her respiratory rate is uneven and slow. Blood pressure upper 90s systolic. Reported blood sugar per EMS 116. Patient has a history of polysubstance abuse in the past, methamphetamine inclu ded. She has a history of hypertension. The left-sided CVA. Timing/Duration: Other (unknown) Severity: Severe Allergies and Home Medications Allergies Coded Allergies: Penicillins (Verified Allergy, Mild, 03/29/23) amitriptyline (Verified Allergy, Unknown, 03/29/23) Patient Home Medication List Home Medication List Reviewed: Yes Aspirin (Aspirin) 325 Mg Tablet, 325 MG PO DAILY Prescribed by: EMORY BERNAL on 10/15/22 1450 Atorvastatin Calcium (Atorvastatin Calcium) 80 Mg Tablet, 80 MG PO DAILY Prescribed by: EMORY BERNAL on 10/15/22 1450 Carvedilol (Carvedilol) 3.125 Mg Tablet, 3.125 MG PO BID Prescribed by: EMORY BERNAL on 10/15/22 1450 Clopidogrel Bisulfate (Clopidogrel) 75 Mg Tablet, 75 MG PO DAILY Prescribed by: EMORY BERNAL on 10/15/22 1450 Enoxaparin Sodium (Enoxaparin Sodium) 40 Mg/0.4 Ml Syringe, 40 MG SC Q24H Prescribed by: EMORY BERNAL on 10/15/22 1450 Hydroxyzine HCl (Hydroxyzine HCl) 10 Mg Tablet, 10 MG PO Q6H PRN for anxiety Prescribed by: LARY TERRY on 10/24/22 0943 Losartan Potassium (Losartan Potassium) 25 Mg Tablet, 25 MG PO DAILY Prescribed by: EMORY BERNAL on 10/15/22 1450 Review of Systems Review of Systems Constitutional: see HPI Unable to obtain from patient due to intoxication/AMS Past Cuzfgwv-Fscshb-Hgnuzt Hx Immunizations Up To Date First/Initial COVID19 Vaccinat: NA Second COVID19 Vaccination Earl: NA Third COVID19 Vaccination Date: NA Past Medical History Surgery/Hospitalization HX: [place] X3, RIGHT HIP REPLACEMENT, CEREBELLAR STROKE sx: 2 c-sec, r hip replaement, gallbladder Surgeries: Yes Section, Coronary Stent, Gallbladder, Orthopedic Respiratory: Yes Chronic Bronchitis Cardiac: Yes Coronary Artery Disease, Heart Attack, Hypertension Neurological: Yes Stroke Genitourinary: Yes Renal Failure Gastrointestinal: No Musculoskeletal: 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 0.0oz. 58.839657md; 29.00 BMI Method:Stated General Appearance: No Apparent Distress, Other (somnolent; appears chronically ill; rousable to moderate physical stim) Eyes: Bilateral Eye Normal Inspection, Bilateral Eye PERRL Neck: Normal Inspection Respiratory: Lungs Clear, Normal Breath Sounds, No Accessory Muscle Use, No Respiratory Distress, Other (irregular breathing pattern) Cardiovascular: Regular Rate, Rhythm, Normal Peripheral Pulses, Other (irregular) Gastrointestinal: Non Tender, Soft, Abnormal Bowel Sounds (hypoactive) Extremity: No Pedal Edema, Other (normal ROM right arm. left arm and leg hemiparetic - left hand contractured) Neurologic/Psychiatric: Disoriented, Other (somnolent/altered) Skin: Warm/Dry, Pallor Procedures/Interventions Lumen: triple Central Line Procedure: betadine prep, sterile drapes applied, sterile dressing applied Position: internal jugular (R) Anesthesia: Lidocaine (3) Volume Anesthetic (ccs): 3 Complications: none Post Position: sutured, good blood return required 2 attempts right IJ ; ultrasound guidance utilized; post procedure CXR showed no ptx however central line noted to be placed into right neck, as opposed to right SVC Reason for Intubation: overdose Date of ETT Placement: Mar 29, 2023 Time of ETT Placement: 10:00 Intubation Method: orotracheal Tube Size: 7.5 Medications: Etomidate, Rocuronium Positive End Tide CO2: Yes Breath Sounds after Intubation: bilateral-equal Intubation Complications: no complications Post Intubation Xray: Yes CXR shows good placement of ett Progress/Results/Core Measures Suspected Sepsis SIRS Temperature: Pulse: Respiratory Rate: Laboratory Tests 03/29/23 09:15: White Blood Count 8.6 Blood Pressure / Mean: Laboratory Tests 03/29/23 09:15: Creatinine 0.73, Platelet Count 272, Total Bilirubin 0.8 Results/Orders Lab Results Laboratory Tests Test 03/29/23 08:55 03/29/23 08:56 03/29/23 09:15 03/29/23 09:45 Range/Units Glucometer 137 H 70-110 MG/DL SARS-CoV-2 RNA (RT-PCR) Not Detected Not Detecte White Blood Count 8.6 4.3-11.0 10^3/uL Red Blood Count 4.56 3.80-5.11 10^6/uL Hemoglobin 12.9 11.5-16.0 g/dL Hematocrit 38 35-52 % Mean Corpuscular Volume 84 80-99 fL Mean Corpuscular Hemoglobin 28 25-34 pg Mean Corpuscular Hemoglobin Concent 34 32-36 g/dL Red Cell Distribution Width 12.8 10.0-14.5 % Platelet Count 272 130-400 10^3/uL Mean Platelet Volume 9.3 9.0-12.2 fL Immature Granulocyte % (Auto) 0 % Neutrophils (%) (Auto) 66 42-75 % Lymphocytes (%) (Auto) 26 12-44 % Monocytes (%) (Auto) 8 0-12 % Eosinophils (%) (Auto) 1 0-10 % Basophils (%) (Auto) 0 0-10 % Neutrophils # (Auto) 5.6 1.8-7.8 10^3/uL Lymphocytes # (Auto) 2.2 1.0-4.0 10^3/uL Monocytes # (Auto) 0.7 0.0-1.0 10^3/uL Eosinophils # (Auto) 0.1 0.0-0.3 10^3/uL Basophils # (Auto) 0.0 0.0-0.1 10^3/uL Immature Granulocyte # (Auto) 0.0 0.0-0.1 10^3/uL Sodium Level 144 135-145 MMOL/L Potassium Level 3.2 L 3.6-5.0 MMOL/L Chloride Level 109 H 98-107 MMOL/L Carbon Dioxide Level 23 21-32 MMOL/L Anion Gap 12 5-14 MMOL/L Blood Urea Nitrogen 12 7-18 MG/DL Creatinine 0.73 0.60-1.30 MG/DL Estimat Glomerular Filtration Rate 100 BUN/Creatinine Ratio 16 Glucose Level 127 H 70-105 MG/DL Calcium Level 8.9 8.5-10.1 MG/DL Corrected Calcium 9.1 8.5-10.1 MG/DL Total Bilirubin 0.8 0.1-1.0 MG/DL Aspartate Amino Transf (AST/SGOT) 21 5-34 U/L Alanine Aminotransferase (ALT/SGPT) 25 0-55 U/L Alkaline Phosphatase 109 40-136 U/L Total Protein 6.2 L 6.4-8.2 GM/DL Albumin 3.8 3.2-4.5 GM/DL Triglycerides Level 54 <150 MG/DL Salicylates Level < 5.0 L 5.0-20.0 MG/DL Acetaminophen Level < 10 L 10-30 UG/ML Serum Alcohol < 10 <10 MG/DL Urine Color YELLOW Urine Clarity CLEAR Urine pH 6.0 5-9 Urine Specific Shelley >=1.030 1.016-1.022 Urine Protein 2+ H NEGATIVE Urine Glucose (UA) NEGATIVE NEGATIVE Urine Ketones NEGATIVE NEGATIVE Urine Nitrite NEGATIVE NEGATIVE Urine Bilirubin 1+ H NEGATIVE Urine Urobilinogen 1.0 < = 1.0 MG/DL Urine Leukocyte Esterase NEGATIVE NEGATIVE Urine RBC (Auto) NEGATIVE NEGATIVE Urine RBC 0-2 /HPF Urine WBC RARE /HPF Urine Crystals PRESENT H /LPF Urine Amorphous Sediment FEW MARY URATES H /LPF Urine Bacteria NEGATIVE /HPF Urine Casts NONE /LPF Urine Mucus MODERATE H /LPF Urine Culture Indicated NO Urine Opiates Screen NEGATIVE NEGATIVE Urine Oxycodone Screen NEGATIVE NEGATIVE Urine Methadone Screen NEGATIVE NEGATIVE Urine Barbiturates Screen NEGATIVE NEGATIVE Ur Tricyclic Antidepressants Screen NEGATIVE NEGATIVE Urine Phencyclidine Screen NEGATIVE NEGATIVE Urine Amphetamines Screen NEGATIVE NEGATIVE Urine Methamphetamines Screen NEGATIVE NEGATIVE Urine Benzodiazepines Screen NEGATIVE NEGATIVE Urine Cocaine Screen NEGATIVE NEGATIVE Urine Cannabinoids Screen POSITIVE H NEGATIVE Test 03/29/23 11:20 Range/Units Arterial Blood pH 7.43 7.37-7.43 Arterial Blood Partial Pressure CO2 40 35-45 MMHG Arterial Blood Partial Pressure O2 56 L 79-93 MMHG Arterial Blood HCO3 27 23-27 MMOL/L Arterial Blood Total CO2 27.7 21.0-31.0 MMOL/L Arterial Blood Oxygen Saturation 90 L 94-100 % Arterial Blood Base Excess 2.0 -2.5-2.5 MMOL/L Blood Gas Ventilator Setting YES Blood Gas Inspired Oxygen 50% My Orders Orders - LARY TERRY MD Ua Culture If Indicated (03/29/23 08:40) Cbc And Automated Diff (03/29/23 08:40) Comprehensive Metabolic Panel (03/29/23 08:40) Alcohol (03/29/23 08:40) Drug Screen Stat (Urine) (03/29/23 08:40) Acetaminophen (03/29/23 08:40) Salicylate (03/29/23 08:40) Ekg Tracing (03/29/23 08:40) Ed Iv/Invasive Line Start (03/29/23 08:40) Monitor-Rhythm Ecg Trace Only (03/29/23 08:40) Bh Status Checks/Observation O Q15M (03/29/23 08:40) Ed Iv/Invasive Line Start (03/29/23 08:40) Covid 19 Inhouse Test (03/29/23 08:40) Ct Head Wo (03/29/23 08:40) Ns Iv 1000 Ml (Ns Iv 1000 Ml) (03/29/23 08:40) Accucheck Stat ONCE (03/29/23 08:40) Catheter(Urinary) Insert & Ass 03,15 (03/29/23 09:44) Ekg Tracing (03/29/23 09:45) Chest 1 View, Ap/Pa Only (03/29/23 10:08) Propofol Drip (Icu) (Propofol Drip (Icu) (03/29/23 11:15) Propofol Drip (Icu) (Propofol Drip (Icu) (03/29/23 11:15) Triglycerides (03/29/23 11:09) Triglycerides (03/31/23 11:09) Propofol Injection (Propofol Injection) (03/29/23 11:15) Ed Admission (Communication) (03/29/23 11:14) Arterial Blood Gas (03/29/23 11:16) Chest 1 View, Ap/Pa Only (03/29/23 12:12) Medications Given in ED Vital Signs/I&O 03/29/23 03/29/23 03/29/23 03/29/23 08:22 08:22 10:33 11:22 Temp 36.0 Pulse 90 107 93 Resp 18 18 B/P (MAP) 112/64 (80) 125/81 Pulse Ox 98 100 O2 Delivery Room Air Room Air FiO2 50 Capillary Refill : Progress Note : Time: 12:34 Progress Note Patient seen and evaluated by me. Eval today includes physical exam, accu check at presentation, CBC, CMP, UA, UDS, serum salicylate level, acetaminophen, etoh level, ABG, EKG x2, covid test, CXR x2, CT head without contrast. Pertinent physical exam findings reveal WDWN female, quite somnolent - who rouses to mod physical stimulus - eyes primarily closed unless stimulated. She has clear speech that is a little incoherent - unable to hold conversation without going back to "sleeo" . She appears intoxicated on a sedating substance (baclofen by history). No signs of trauma to HEENT. Pupils are 3mm and equal. Heart is regular and tachy. Lungs are clear. Abdomen is soft. She has what appears to be flaccid paralysis of the LLE and contractured hand and spastic paralysis of the RUE. She will follow commands when kept stimulated with RUE. No other signs of trauma to the rest of the body noted - some bruising noted to the volar right wrist. ddx includes new stroke, hypoglycemia, intoxication, hypoxic encephalopathy, CO2 narcosis Labs and imaging independently reviewed and interpreted by me. Her initial accu check showed a glucose of 137. CBC is normal. CHEM 12 pertinent for slightly low potassium at 3.2 - otherwise normal. Serum tox - negative. UDS positive for THC. UA concerntrated with specific gravity of >1.030 and no signs of infection. Covid test is negative. EKG's x2 showed a sinus tachycardia occ PVC/PAC - no ST segment change; CT head shows no acute findings on my eval and per radiologist - he agrees with additionally evolution of her Rt MCA infarc and additionally a chronic left cerebellar infarct. After eval of the patient - NS 1L given and as patient was so sedate, and with report of possible total overdose of baclofen in the 780mg range, and in consult with Poison Control - decision was made to electively intubate patient for airway protection - we had no idea what time the overdose may have possibly occurred. She was pre- oxygenated and sedated with 20mg of etomidate and chemically paralyzed with 50mg Rocuronium. Glidescope used to place a 7.5ett with positive visualization of the cords - pos ETCO2. confirmed placement with CXR and equal BS bilaterally. At this time attention was turned to IV access as the patient had only a 22g in the right chest wall. Ultrasound was used to place a right triple lumen IJ cath eter. This required 2 attempts. Patient maintained on propofol drip for sedation - she required 2 IV boluses during the central line placement. I had some difficulty with feeding the guidewire and ultimately line was identified going cephalad into the neck. I discussed placement with Dr Pascual - on for general surgery. He stated to go ahead and use the line and he would evaluate later in the ICU. Case was discussed briefly with Dr Bernal and then her resident construction and maintenance inspector - Dr Brewster. I also discussed the case with the eICU doctor construction and maintenance inspector. Patient will be admitted to the ICU. ECG Initial ECG Impression Date: Mar 29, 2023 Initial ECG Impression Time: 08:47 Initial ECG Rate: 78 Initial ECG Rhythm: Normal Sinus Initial ECG Intervals AK 135 QRS 106 QTc 448 Comment Voltage throughout, normal sinus rhythm, no ectopy EKG : EKG Time: 10:42 Rate: 98 Rhythm: Normal Sinus Intervals AK interval 133 QRS 99 QTc 448 Comment Occasional PVCs, Q waves inferiorly Diagnostic Imaging Diagonstic Imaging: CT Comments [facility] [place] [place], [place] NAME: REAGAN WHITFIELD [facility] REC#: [id number] PT STATUS: REG ER : 1970 PHYSICIAN: LARY TERRY MD ADMIT DATE: 03/29/23/ER Signed Date of Exam:03/29/23 CT HEAD WO PROCEDURE: CT head without contrast. TECHNIQUE: Multiple contiguous axial images were obtained through the brain without the use of intravenous contrast. Auto Exposure Controls were utilized during the CT exam to meet ALARA standards for radiation dose reduction. INDICATION: Altered mental status. History of stroke and overdose. COMPARISON: CT head without contrast 11/06/2022. FINDINGS: Interval temporal evolution of the right MCA infarction involving the right frontoparietal region and anterior right temporal lobe which is now chronic. Stable appearing chronic infarct in the left cerebellum. No intracranial hemorrhage, mass effect, hydrocephalus or extra-axial fluid collections. No CT evidence of an acute territorial infarction. No acute osseous findings. Chronic left lamina papyracea fracture. Paranasal sinuses and mastoids are clear. IMPRESSION: 1. No CT evidence of an acute territorial infarction or hemorrhage. 2. Interval temporal evolution of the right MCA infarction in the right frontoparietal region and right anterior temporal lobe. Stable chronic infarct in the left cerebellum. Dictated by: Dictated on workstation # [id number] Dict: 03/29/23908 Trans: 03/29/23 1213 [facility] [id number] Interpreted by: ALESSIO HERNÁNDEZ MD Electronically signed by: ALESSIO HERNÁNDEZ MD 03/29/23 1213 Diagonstic Imaging: Xray Plain Films/CT/US/NM/MRI: chest Comments [facility] [place] [place] NAME: REAGAN WHITFIELD [facility] REC#: [id number] PT STATUS: ADM IN : 1970 PHYSICIAN: LARY TERRY MD ADMIT DATE: 03/29/23/ICU Signed Date of Exam:03/29/23 CHEST 1 VIEW, AP/PA ONLY INDICATION: Respiratory distress, post intubation. TECHNIQUE/COMPARISON: A frontal chest was obtained at 10:36 AM and compared to 10/12/2022. FINDINGS: There is a new ET tube seen with the tip overlying the lower trachea just above the caron. An NG tube tip is below the film. There is some patchy infiltrate throughout the peripheral portion of the left lung. There is no pneumothorax or pleural fluid. IMPRESSION: Patchy diffuse infiltrate in the left lung with ET tube and NG tube as described above. Dictated by: Dictated on workstation # [id number] Dict: 03/29/23 1056 Trans: 03/29/23 1257 [id number] Interpreted by: HUGO MERAZ MD Electronically signed by: HUGO MERAZ MD 03/29/23 1257 Diagonstic Imaging: Xray Plain Films/CT/US/NM/MRI: chest Comments [facility] [place] NAME: REAGAN WHITFIELD [facility] REC#: [id number] PT STATUS: ADM IN : 1970 PHYSICIAN: LARY TERRY MD ADMIT DATE: 03/29/23/ICU Signed Date of Exam:03/29/23 CHEST 1 VIEW, AP/PA ONLY EXAMINATION: Chest 1 view HISTORY: CONFIRM CENTRAL LINE PLACEMENT COMPARISON: 03/29/2023. FINDINGS: Heart size and pulmonary vasculature are stable. Stable left pleural effusion and left lung opacification. No pneumothorax. The osseous structures are intact. A right IJ central line has been placed with the tip coursing laterally into the axilla. Medical support lines and tubes are otherwise unchanged. IMPRESSION: 1. Abnormal placement of the right IJ central line. Recommend withdrawing the catheter and repositioning or replacement. 2. Otherwise, stable chest radiograph. No pneumothorax. Dictated by: Dictated on workstation # [id number] Dict: 03/29/23 1223 Trans: 03/29/23 1328 AS [id number] Interpreted by: JUNIE ACEVEDO DO Electronically signed by: JUNIE ACEVEDO DO 03/29/23 1328 Critical Care Note Critical Care Start Time: 08:22 Stop Time: 12:00 Total Time (minutes) 30 min critical care time in the eval and management of this overdose patient.; Time included that at the bedside evaluating mental status and monitoring airway, fluid resuscitation, review and interpretation of labs and imaging; discussion with multiple physician services, review of prior medical records. Time did not include that spent in procedures. Departure Communication (Admissions) Time/Spoke to Admitting Phy: 11:[address] Brewster for Dr Bernal - hospitalist - [facility] Time/Spoke to Consulting Phy: 12:[address] Pascual (surgery) ok to use right IJ; eICU - discussed @ 1240 Impression Primary Impression: Baclofen overdose Qualified Codes: T42.8X2A - Poisoning by antiparkinsonism drugs and other central muscle-tone depressants, intentional self-harm, initial encounter Additional Impression: Suicide attempt Disposition: ADMITTED INPATIENT Condition: Critical Admissions Decision to Admit Reason: Admit from ER (General) Decision to Admit/Date: Mar 29, 2023 Time/Decision to Admit Time: 10:10 Departure-Patient Inst. Referrals: DANY KATZ APRN (PCP) Primary Care Physician [facility] (Family) Primary Care Physician Copy Copies To 1: RONNIE TEIXEIRA KATHRYN M MD Mar 29, 2023 08:48
--- NOTE | 2023-03-29 09:32 | Diagnostic Imaging Report ---
PROCEDURE: CT head without contrast. TECHNIQUE: Multiple contiguous axial images were obtained through the brain without the use of intravenous contrast. Auto Exposure Controls were utilized during the CT exam to meet ALARA standards for radiation dose reduction. INDICATION: Altered mental status. History of stroke and overdose. COMPARISON: CT head without contrast 11/06/2022. FINDINGS: Interval temporal evolution of the right MCA infarction involving the right frontoparietal region and anterior right temporal lobe which is now chronic. Stable appearing chronic infarct in the left cerebellum. No intracranial hemorrhage, mass effect, hydrocephalus or extra-axial fluid collections. No CT evidence of an acute territorial infarction. No acute osseous findings. Chronic left lamina papyracea fracture. Paranasal sinuses and mastoids are clear. IMPRESSION: 1. No CT evidence of an acute territorial infarction or hemorrhage. 2. Interval temporal evolution of the right MCA infarction in the right frontoparietal region and right anterior temporal lobe. Stable chronic infarct in the left cerebellum. Dictated by: Dictated on workstation # [id number]
[2023-03-29 09:35] LABS: BASOPHILS % (AUTO) 0 % (0-10); EOSINOPHILS # (AUTO) 0.1 10^3/uL (0.0-0.3); EOSINOPHILS % (AUTO) 1 % (0-10); HEMATOCRIT 38 % (35-52); HEMOGLOBIN 12.9 g/dL (11.5-16.0); LYMPHOCYTES # (AUTO) 2.2 10^3/uL (1.0-4.0); LYMPHOCYTES % (AUTO) 26 % (12-44); MEAN CORPUSCULAR HEMOGLOBIN 28 pg (25-34); MEAN CORPUSCULAR HGB CONC 34 g/dL (32-36); MEAN CORPUSCULAR VOLUME 84 fL (80-99); MEAN PLATELET VOLUME 9.3 fL (9.0-12.2); MONOCYTES # (AUTO) 0.7 10^3/uL (0.0-1.0); MONOCYTES % (AUTO) 8 % (0-12); NEUTROPHILS # (AUTO) 5.6 10^3/uL (1.8-7.8); NEUTROPHILS % (AUTO) 66 % (42-75); PLATELET COUNT 272 10^3/uL (130-400); WHITE BLOOD COUNT 8.6 10^3/uL (4.3-11.0)
[2023-03-29 09:42] LABS: ALBUMIN 3.8 GM/DL (3.2-4.5); CHLORIDE 109 MMOL/L (98-107); POTASSIUM 3.2 MMOL/L (3.6-5.0); SODIUM 144 MMOL/L (135-145)
[2023-03-29 09:44] LABS: CALCIUM 8.9 MG/DL (8.5-10.1)
[2023-03-29 09:45] LABS: GLUCOSE 127 MG/DL (70-105); TOTAL PROTEIN 6.2 GM/DL (6.4-8.2)
[2023-03-29 09:46] LABS: CARBON DIOXIDE 23 MMOL/L (21-32)
[2023-03-29 09:47] LABS: BILIRUBIN,TOTAL 0.8 MG/DL (0.1-1.0)
[2023-03-29 09:48] LABS: ALKALINE PHOSPHATASE 109 U/L (40-136); CREATININE SERUM 0.73 MG/DL (0.60-1.30); GFR ESTIMATED 100
[2023-03-29 09:50] LABS: ACETAMINOPHEN < 10 UG/ML (10-30); BUN/CREATININE RATIO 16
[2023-03-29 09:51] LABS: SALICYLATE < 5.0 MG/DL (5.0-20.0)
[2023-03-29 09:52] LABS: ALANINE AMINOTRANSFERASE 25 U/L (0-55)
[2023-03-29 10:12] LABS: CLARITY,URINE CLEAR; COLOR,URINE YELLOW; PROTEIN,URINE 2+ (NEGATIVE)
[2023-03-29 10:13] LABS: AMORPHOUS SEDIMENT,UR FEW AMOR URATES /LPF; BACTERIA,URINE NEGATIVE /HPF; BILIRUBIN,URINE 1+ (NEGATIVE); GLUCOSE, URINE (UA) NEGATIVE (NEGATIVE); KETONES,URINE NEGATIVE (NEGATIVE); LEUKOCYTE ESTERASE ,URINE NEGATIVE (NEGATIVE); NITRITE,URINE NEGATIVE (NEGATIVE); RBC,URINE 0-2 /HPF; WBC,URINE RARE /HPF
[2023-03-29 10:21] LABS: AMPHETAMINE SCREEN, URINE NEGATIVE (NEGATIVE); BARBITURATE SCREEN URINE NEGATIVE (NEGATIVE); CANNABINOID SCREEN, URINE POSITIVE (NEGATIVE); COCAINE SCREEN URINE NEGATIVE (NEGATIVE); METHADONE STAT NEGATIVE (NEGATIVE); OPIATE SCREEN URINE NEGATIVE (NEGATIVE); OXYCODONE STAT NEGATIVE (NEGATIVE); TRICYCLIC ANTIDEPRESSANTS SCRE NEGATIVE (NEGATIVE)
--- NOTE | 2023-03-29 10:49 | History & Physical-Hospitalist ---
CLARIBEL PERSAUD MD, RESIDENT 03/29/23 1048: History of Present Illness HPI/Chief Complaint CC: Overdose Patient is a 53-year-old female with a past medical history of prior MCA stroke with left-sided hemiparesis, polysubstance abuse, hypertension who presented with possible baclofen overdose. EMS was called by family who found an empty bottle of baclofen next to her. She had filled a 90 pill prescription portably on March 25 and had possibly taken 12 tablets since filling her prescription. Given that her pill bottle was empty, it is proposed that patient had taken 78 pills with a total of 780 mg total of baclofen. Patient was difficult to arouse on presentation to the ED. Per ED physician, GCS was 8. Poison control was called who had recommended intubation sooner rather than later given baclofen side effects. Patient was intubated in the ED for airway protection. Will ultimately be transferred to the ICU for further management and monitoring. Source: RN/MD Exam Limitations: clinical condition Date Seen 03/29/23 Time Seen by a Provider: 10:30 Attending Physician Casandra Rodriguez Aprn PCP Admitting Physician: Attending Physician: Referring Physician Date of Admission Home Medications & Allergies Home Medications Reviewed patient Home Medication Reconciliation performed by pharmacy medication reconciliations air launch weapons technician and/or nursing. Patients Allergies have been reviewed. Allergies Allergies Coded Allergies Penicillins (Verified Allergy, Mild, 03/29/23) amitriptyline (Verified Allergy, Unknown, 03/29/23) Past Jjtzeac-Wfleed-Vokqlg Hx Patient Social History Tobacco Use?: No Use of E-Cig and/or Vaping dev: No Substance use?: No Alcohol Use?: No Pt feels they are or have been: No Immunizations Up To Date First/Initial COVID19 Vaccinat: unk Second COVID19 Vaccination Earl: NA Tetanus Booster (TDap): Unknown Current Status status: No Advance Directives: No Communicates: Verbally Primary Language: Uzbek Preferred Spoken Language: Uzbek Past Medical History Surgeries: Section, Coronary Stent, Gallbladder, Orthopedic Chronic Bronchitis Coronary Artery Disease, Heart Attack, Hypertension Stroke Renal Failure Arthritis, Back Injury Anxiety Blood Disorders: No Adverse Reaction/Blood Tranf: No Family Medical History No Pertinent Family Hx Review of Systems ROS-Unable to Obtain: Unable to obtain review of systems given patient is altered Constitutional: no symptoms reported Physical Exam Physical Exam Vital Signs Vital Signs - First Documented 03/29/23 03/29/23 03/29/23 08:22 10:33 12:40 Temp 36.0 Pulse 90 Resp 18 B/P (MAP) 112/64 (80) Pulse Ox 98 O2 Delivery Room Air O2 Flow Rate 50.00 FiO2 50 Capillary Refill : Less Than 3 Seconds Height, Weight, BMI Height: 5'2.00" Weight: 130lbs. 0.0oz. 58.162140dq; 31.00 BMI Method:Stated General Appearance: No Apparent Distress HEENT: PERRL/EOMI, Moist Mucous Membranes Neck: Limited Range of Motion (Patient altered) Respiratory: Lungs Clear, Normal Breath Sounds, No Accessory Muscle Use, No Respiratory Distress, Other (Intubated) Cardiovascular: Regular Rate, Rhythm, No Edema, No Murmur Gastrointestinal: Normal Bowel Sounds, Soft Neurologic/Psychiatric: Other (Patient not alert, lethargic) Skin: Warm/Dry Results Results/Procedures Labs Laboratory Tests 03/29/23 09:15 Patient resulted labs reviewed. Imaging: Reviewed Imaging Report Imaging CT head (03/29/2023): IMPRESSION: 1. No CT evidence of an acute territorial infarction or hemorrhage. 2. Interval temporal evolution of the right MCA infarction in the right frontoparietal region and right anterior temporal lobe. Stable chronic infarct in the left cerebellum. Chest x-ray (03/29/2023): IMPRESSION: Patchy diffuse infiltrate in the left lung with ET tube and NG tube as described above. Assessment/Plan Admission Diagnosis Baclofen overdose Admission Status: Inpatient Order (span 2 midnights) Reason for Inpatient Admission: Intubated, telemetry and ICU monitoring Diagnosis/Problems Diagnosis/Problems (1) Baclofen overdose Status: Acute Assessment & Plan: Admitted for reported baclofen overdose. Thought to have ta yue 780 mg total. Debated for airway protection given decreasing GCS on presentation to the ED. Plan: Continue mechanical ventilation given that patient is intubated Monitor on fishing tackle repairer for bradycardia, if persisting sitter atropine Monitor for hypotension, if persistent consider pressors Monitor for seizures, IV Keppra on board as needed for any seizure activity Per poison control reports symptoms will resolve in 24 hours however large overdoses can last several days Qualifiers: Encounter type: initial encounter Injury intent: intentional self-harm Qualified Codes: T42.8X2A - Poisoning by antiparkinsonism drugs and other central muscle-tone depressants, intentional self-harm, initial encounter (2) Suicide attempt Status: Acute Assessment & Plan: Per family, it was reported that this may have been an intentional suicide attempt. On presentation to the ED, patient was unsure why as she had taken so many medications however it was difficult to get clear answers from her. Plan: Stabilize patient Once patient is AAOx3, can assess for suicidality (3) Endotracheally intubated Status: Acute Assessment & Plan: See above. Vent settings adjustments per eICU and RT. (4) Recent cerebrovascular accident (CVA) Status: Acute Assessment & Plan: Patient has a history of recent CVA with left-sided w eakness. CT head repeated in the ED showed no progression. There was interval evolution of right MCA infarct. Will assess for any deficits once patient is awake however unlikely to be acute at this time. Plan: Restart patient's DAPT regimen once able to tolerate oral (5) History of methamphetamine abuse Status: Chronic Assessment & Plan: Patient has a history of methamphetamine use. UDS in the ED was negative. Positive for cannabis. (6) Infiltrate of upper lobe of left lung present on imaging study Status: Acute Assessment & Plan: Chest x-ray was notable for patchy diffuse infiltrate in left lung. Patient otherwise stable other than signs of baclofen overdose. No leukocytosis noted. Plan: Low threshold to start antibiotics if signs of leukocytosis or worsening clinical status BERNALEMORY HAGEN 03/30/23 0449: History of Present Illness HPI/Chief Complaint Chief complaint: Overdose on baclofen HPI: This is a 53-year-old female with polysubstance abuse history who presented after an overdose of baclofen. patient quickly declined requiring intubation to protect airway. Source: RN/MD, old records Exam Limitations: clinical condition Past Tajroor-Kfoqlx-Djifsd Hx Patient Social History Marrital Status: single Employed/Student: unemployed Review of Systems Constitutional: see HPI Physical Exam Physical Exam General Appearance: No Apparent Distress, Chronically ill, Other (Intubated) Respiratory: Lungs Clear, Normal Breath Sounds Cardiovascular: Regular Rate, Rhythm Assessment/Plan Admission Diagnosis Assessment: Baclofen overdose intentional Respiratory failure requiring intubation Plan: ICU I personally performed the vasquez portions of the visit, discussed case with resident and concur with resident documentation of history, physical exam, assessment and treatment plan unless otherwise noted. Admission Status: Inpatient Order (span 2 midnights) Reason for Inpatient Admission: intubation with overdose from baclofen CLARIBEL PERSAUD MD, RESIDENT Mar 29, 2023 10:48 EMORY BERNAL DO Mar 30, 2023 04:49
[2023-03-29] MEDS ORDERED: PROPOFOL 500 MG/50 ML IV ONE ×2 (11:00→11:15)
--- NOTE | 2023-03-29 11:00 | Diagnostic Imaging Report ---
INDICATION: Respiratory distress, post intubation. TECHNIQUE/COMPARISON: A frontal chest was obtained at 10:36 AM and compared to 10/12/2022. FINDINGS: There is a new ET tube seen with the tip overlying the lower trachea just above the caron. An NG tube tip is below the film. There is some patchy infiltrate throughout the peripheral portion of the left lung. There is no pneumothorax or pleural fluid. IMPRESSION: Patchy diffuse infiltrate in the left lung with ET tube and NG tube as described above. Dictated by: Dictated on workstation # [id number]
[2023-03-29] MEDS ORDERED: proPOfol INJECTION 200 MG/20 ML VIAL IV ONE (11:15)
[2023-03-29 11:26] LABS: ABG OXYGEN SATURATION 90 % (94-100); ABG PCO2 40 MMHG (35-45); ABG PH 7.43 (7.37-7.43); ABG PO2 56 MMHG (79-93); ABG TCO2 27.7 MMOL/L (21.0-31.0)
[2023-03-29 11:27] LABS: INSPIRED O2 50%; VENTILATOR YES
--- NOTE | 2023-03-29 12:28 | Diagnostic Imaging Report ---
EXAMINATION: Chest 1 view HISTORY: CONFIRM CENTRAL LINE PLACEMENT COMPARISON: 03/29/2023. FINDINGS: Heart size and pulmonary vasculature are stable. Stable left pleural effusion and left lung opacification. No pneumothorax. The osseous structures are intact. A right IJ central line has been placed with the tip coursing laterally into the axilla. Medical support lines and tubes are otherwise unchanged. IMPRESSION: 1. Abnormal placement of the right IJ central line. Recommend withdrawing the catheter and repositioning or replacement. 2. Otherwise, stable chest radiograph. No pneumothorax. Dictated by: Dictated on workstation # [id number]
[2023-03-29] MEDS ORDERED: NS IV 500 ML 500 ML IV PRN (13:00)
[2023-03-29 13:11] VITALS: BP 136/91
--- NOTE | 2023-03-29 14:00 | Tele-ICU Progress Note ---
Subjective Date Seen by a Provider: Mar 29, 2023 Time Seen by a Provider: 13:56 Subjective/Events-last exam (Tele-ICU Physician , consultation as per request of PCP Service provided via interactive audio and video telecommunications E-CARE system to a patient admitted to ICU bed in [facility]. Available chart/ vitals / labs / Images reviewed H&P is from ER notes Patient's information available about PMH, Shx, Fhx allergy reviewed inEMR. ROS as per chart and RN report Now in ICU, hemodynamically stable Video assessment done using teleICU camera, rest of exam as per RN Discussed with RN. VENT SETTINGS and ABG reviewed Sedation, discussed with RN, RASS -2 on propofol 40 s Hospital course: 53F:- suspected Suicidal Attempt with Baclofen OD, Respiratory Failure A/P OD with baclofen - based on pills bottle count - possible 780mg total of baclofen taken - [facility] 03/29 - no acute findings - supportive care - with large dose expected prolonge recovery - ? > 36 h -monitor fos myoclonus and convulsions, since intubated we can miss non- convulsive status- ? EEG vs Keppra vs observation - monitor reflexes ( reported complete loss of brainstem reflexes may be seen mimicking brain ) - monitor for hypothermia, hypotension, and bradycardia - poison control help illicit from ER -maintain hydration - renal status is stable - but might need HD if toxicity simproms are worse OR DEVELOPED GABBY Acute resp failure - INTUBATED 03/29 for mental status ( and PNA ) - full vent support AC 18 - 50-0 + 5 50 % LEFT PNA - ? aspiration - cont abx , cx pending H/o methamphetamines -with withdrawal in ICU on precedex 09/2022 , allegedly quit now Suspected suicidal attempt? - psych consult latter when extubated Chronic baclofen use - ? indications --- to prevent withdrawal, baclofen should be resumed once symptoms of toxicity improved R IJ placed - need to be repositioned H/o MCA stroke with left-sided hemiparesis 09/2022 - wheelchair garcia Lines : R IJ placed - need to be replaced , (Central Line Necessity Reviewed) Hoover: + OG: Nutrition: TF Analgesia: Anxiety/ delirium VTE Prophylaxis: ana Stress Ulcer Prophylaxis: ppi Plans in collaboration with bedside consultants and IM MDs. Discussed with RN to reach out if any questions or concerns A total of _33 minutes of critical care time was devoted to this patient today, required to treat and/or prevent further deterioration of critical care condition ( as above ) . I am remotely monitoring this patient from another state. I am unable to do the bedside exam, and history/physical and pertinent information is taken from other notes in the computer and bedside staff. . Sepsis Event Evaluation Height, Weight, BMI Height: 5'2.00" Weight: 130lbs. 0.0oz. 58.024169dz; 31.00 BMI Method:Stated Exam Exam Patient acknowledged, consented, and participated in this virtual visit which wa s conducted using real time audio/video Vital Signs Date Time Temp Pulse Resp B/P (MAP) Pulse Ox O2 Delivery O2 Flow Rate FiO2 03/29/23 13:11 93 18 98 50 03/29/23 12:40 36.0 94 18 142/102 100 50.00 03/29/23 11:22 93 125/81 03/29/23 10:33 107 18 100 50 03/29/23 08:22 36.0 90 18 112/64 (80) 98 Room Air 03/29/23 08:22 Room Air Height & Weight Height: 5'2.00" Weight: 130lbs. 0.0oz. 58.804763th; 31.00 BMI Method:Stated General Appearance: No Apparent Distress HEENT: PERRL/EOMI, Moist Mucous Membranes Neck: Limited Range of Motion (Patient altered) Respiratory: Lungs Clear, Normal Breath Sounds, No Accessory Muscle Use, No Respiratory Distress, Other (Intubated) Cardiovascular: Regular Rate, Rhythm, No Edema, No Murmur Capillary Refill: Less Than 3 Seconds Extremity: No Pedal Edema, Other (normal ROM right arm. left arm and leg hemiparetic - left hand contractured) Neurologic/Psychiatric: Other (Patient not alert, lethargic) Skin: Warm/Dry Results Lab Laboratory Tests 03/29/23 09:15 Assessment/Plan Assessment/Plan 1 JAYSON DAWSON MD Mar 29, 2023 14:00
[2023-03-29] MEDS ORDERED: ETOMIDATE INJ SOLN 20 MG/10 ML VIAL IV ONE (14:23)
[2023-03-29] MEDS ORDERED: ROCURONIUM 50 MG/5 ML VIAL IV ONE (14:23)
[2023-03-29] MEDS: POTASSIUM CHLORIDE IV SCH (14:34)
[2023-03-29] MEDS: D5 LR IV SCH (14:34)
[2023-03-29] MEDS: ENOXAPARIN 40 MG/0.4 ML SYRINGE SC SCH (14:35)
[2023-03-29] MEDS: cefTRIAXone IV/IM 1,000 MG in NS (IVPB) 50 ML 50 ML IV SCH (14:50)
[2023-03-29] MEDS ORDERED: POTASSIUM CL 10MEQ/50ML IVPB 50 ML IV ONE (15:40)
[2023-03-29] MEDS: POTASSIUM CL 10MEQ/50ML IVPB 50 ML IV SCH ×5 (15:41→20:27)
[2023-03-29 18:37] VITALS: BP 83/55
[2023-03-29] MEDS ORDERED: LACTATED RINGERS 1,000 ML 1,000 ML IV SCH (18:45)
[2023-03-29] MEDS ORDERED: LACTATED RINGERS 1,000 ML 1,000 ML IV ONE (18:52)
[2023-03-29 21:51] VITALS: BP 120/78
[2023-03-29 22:08] VITALS: BP 144/80
[2023-03-29] MEDS ORDERED: DexMEDEtomidine 1,000mcg/250ml 250 ML IV ONE (22:16)
[2023-03-29] MEDS: DexMEDEtomidine 1,000mcg/250ml 250 ML IV SCH (22:22)
[2023-03-29 22:27] VITALS: BP 140/90
[2023-03-30 00:57] LABS: ABG BASE EXCESS 3.6 MMOL/L (-2.5-2.5); ABG OXYGEN SATURATION 95 % (94-100); ABG PCO2 34 MMHG (35-45); ABG PO2 62 MMHG (79-93); ABG TCO2 27.5 MMOL/L (21.0-31.0); INSPIRED O2 21%; VENTILATOR NO
[2023-03-30 01:18] VITALS: BP 92/47
[2023-03-30] MEDS: POTASSIUM CHLORIDE IV SCH ×3 (01:40→22:27)
[2023-03-30] MEDS: D5 LR IV SCH ×3 (01:40→22:27)
[2023-03-30] MEDS: POTASSIUM CL 10MEQ/50ML IVPB 50 ML IV SCH ×4 (01:40→07:22)
[2023-03-30] MEDS ORDERED: NS IV 1000 ML 1,000 ML ONE (01:55)
[2023-03-30] MEDS ORDERED: NS IV 1000 ML 1,000 ML IV SCH (02:00)
[2023-03-30] MEDS ORDERED: NOREPINEPHRINE 8 MG/250 ML 250 ML IV ONE (02:48)
[2023-03-30] MEDS: NOREPINEPHRINE 8 MG/250 ML 250 ML IV SCH ×2 (02:55→22:26)
[2023-03-30 04:49] LABS: LYMPHOCYTES # (AUTO) 2.2 10^3/uL (1.0-4.0); MEAN CORPUSCULAR VOLUME 84 fL (80-99); MEAN PLATELET VOLUME 9.4 fL (9.0-12.2)
[2023-03-30 04:50] LABS: BASOPHILS % (AUTO) 0 % (0-10); EOSINOPHILS # (AUTO) 4.7 10^3/uL (0.0-0.3); EOSINOPHILS % (AUTO) 23 % (0-10); HEMATOCRIT 36 % (35-52); HEMOGLOBIN 11.9 g/dL (11.5-16.0); LYMPHOCYTES % (AUTO) 10 % (12-44); MEAN CORPUSCULAR HEMOGLOBIN 28 pg (25-34); MEAN CORPUSCULAR HGB CONC 33 g/dL (32-36); MONOCYTES # (AUTO) 1.8 10^3/uL (0.0-1.0); MONOCYTES % (AUTO) 9 % (0-12); NEUTROPHILS # (AUTO) 11.8 10^3/uL (1.8-7.8); NEUTROPHILS % (AUTO) 57 % (42-75); PLATELET COUNT 328 10^3/uL (130-400); WHITE BLOOD COUNT 20.6 10^3/uL (4.3-11.0)
[2023-03-30 05:06] LABS: ALBUMIN 3.4 GM/DL (3.2-4.5); BILIRUBIN,TOTAL 1.1 MG/DL (0.1-1.0); CALCIUM 8.3 MG/DL (8.5-10.1); CREATININE SERUM 0.84 MG/DL (0.60-1.30); MAGNESIUM 1.2 MG/DL (1.6-2.4); POTASSIUM 3.9 MMOL/L (3.6-5.0); TOTAL PROTEIN 5.5 GM/DL (6.4-8.2)
[2023-03-30] MEDS: DexMEDEtomidine 1,000mcg/250ml 250 ML IV SCH (05:28)
[2023-03-30] MEDS: POTASSIUM CHLORIDE 20 MEQ TABLET PO SCH (05:29)
[2023-03-30] MEDS: MAGNESIUM 1 GM/100 ML IVPB 100 ML IV SCH ×6 (05:29→10:40)
[2023-03-30 05:40] LABS: LYMPHOCYTES % (MANUAL) 12 %; MONOCYTES % (MANUAL) 10 %; NEUTROPHILS % (MANUAL) 78 %; POLYCHROMASIA SLIGHT; RBC MORPH NORMAL
[2023-03-30] MEDS ORDERED: MAGNESIUM 1 GM/100 ML IVPB 600 ML IV ONE (06:05)
[2023-03-30] MEDS ORDERED: POTASSIUM CL 10MEQ/50ML IVPB 100 ML IV ONE (06:05)
[2023-03-30 07:09] VITALS: BP 102/65
--- NOTE | 2023-03-30 08:19 | Tele-ICU Progress Note ---
Subjective Date Seen by a Provider: Mar 30, 2023 Time Seen by a Provider: 08:13 Subjective/Events-last exam (Tele-ICU Physician , consultation as per request of PCP Service provided via interactive audio and video telecommunications E-CARE system to a patient admitted to ICU bed in [facility]. Available chart/ vitals / labs / Images reviewed H&P is from ER notes Patient's information available about PMH, Shx, Fhx allergy reviewed in EMR. ROS as per chart and RN report Now in ICU, hemodynamically stable Video assessment done using teleICU camera, rest of exam as per RN Discussed with RN. 53 yo F with baclofen OD, now on vent AC 18, Vt 500, FIO2 21%, PEEP 5, This is second day of intubation Pt is agitated if stimulated CXR elevated diagrams, ET looks a little low Serum phosphorus 1.0, will replace with Kphos Has cough reflex, needs frequent suctioning On baclofen due to weakness on left from CVA, Hx of substance abuse methamphetamine at 9am called for need for further sedation, advice of poison control is BDZ, became bradycardic on IV Precedex, will order IV Versed Sepsis Event Evaluation Height, Weight, BMI Height: 5'2.00" Weight: 130lbs. 0.0oz. 58.857814ak; 32.85 BMI Method:Stated Exam Exam Patient acknowledged, consented, and participated in this virtual visit which was conducted using real time audio/video Vital Signs Date Time Temp Pulse Resp B/P (MAP) Pulse Ox O2 Delivery O2 Flow Rate FiO2 03/30/23 07:22 71 104/64 03/30/23 07:09 68 18 100 21 03/30/23 06:00 68 18 104/58 (78) 99 Mechanical Ventilator 30.00 03/30/23 05:00 72 18 105/68 (83) 99 Mechanical Ventilator 30.00 03/30/23 04:18 77 121/84 03/30/23 04:00 Mechanical Ventilator 30 03/30/23 04:00 82 18 130/80 (105) 100 Mechanical Ventilator 30.00 03/30/23 03:00 62 18 125/78 (105) 100 Mechanical Ventilator 30.00 03/30/23 02:55 54 72/44 03/30/23 02:00 117 18 124/73 (83) 95 Mechanical Ventilator 30.00 03/30/23 01:18 104 18 97 21 03/30/23 01:00 103 03/30/23 01:00 103 18 92/47 (66) 95 Mechanical Ventilator 30.00 03/30/23 00:00 124 18 113/70 (87) 95 Mechanical Ventilator 30.00 03/29/23 23:59 Mechanical Ventilator 30 03/29/23 23:20 115 26 93 21 03/29/23 23:00 131 18 130/70 (79) 92 Mechanical Ventilator 30.00 03/29/23 22:27 145 33 140/90 21 03/29/23 22:22 144 136/90 03/29/23 22:08 141 30 96 21 03/29/23 22:00 129 18 144/80 (98) 98 Mechanical Ventilator 30.00 03/29/23 21:51 111 18 100 30 03/29/23 21:00 109 18 125/80 (93) 99 Mechanical Ventilator 30.00 03/29/23 20:36 107 128/80 03/29/23 20:00 Mechanical Ventilator 30 03/29/23 20:00 107 18 133/79 (103) 100 Mechanical Ventilator 30.00 03/29/23 19:34 36.6 105 125/79 (94) Mechanical Ventilator 30.00 03/29/23 19:26 36.0 03/29/23 19:00 100 03/29/23 18:37 97 18 100 40 03/29/23 18:34 Mechanical Ventilator 30.00 03/29/23 18:00 104 18 107/73 (84) 100 Mechanical Ventilator 40.00 03/29/23 17:00 99 18 113/72 (86) 100 Mechanical Ventilator 40.00 03/29/23 16:00 Mechanical Ventilator 40 03/29/23 16:00 36.1 03/29/23 16:00 96 18 130/77 (94) 100 Mechanical Ventilator 40.00 03/29/23 15:00 91 18 114/74 (87) 98 Mechanical Ventilator 40.00 03/29/23 14:00 87 18 118/69 (85) 98 Mechanical Ventilator 40.00 03/29/23 13:11 93 18 98 50 03/29/23 13:00 101 03/29/23 13:00 104 19 136/86 (103) 100 Mechanical Ventilator 50.00 03/29/23 12:45 Mechanical Ventilator 40 03/29/23 12:40 36.0 94 18 142/102 100 50.00 03/29/23 11:22 93 125/81 03/29/23 10:33 107 18 100 50 03/29/23 08:22 36.0 90 18 112/64 (80) 98 Room Air 03/29/23 08:22 Room Air I & O 03/30/23 07:00 Intake Total 1500 ml Output Total 675 ml Balance 825 ml Height & Weight Height: 5'2.00" Weight: 130lbs. 0.0oz. 58.364088is; 32.85 BMI Method:Stated General Appearance: No Apparent Distress, Mild Distress, Other (somnolent; appears chronically ill; rousable to moderate physical stim) HEENT: PERRL/EOMI (pupils 4 mm, react to ligjht), Moist Mucous Membranes Neck: Normal Inspection Respiratory: Lungs Clear, Normal Breath Sounds, No Accessory Muscle Use, No Respiratory Distress, Other (left lung clear, right lung rhonchi) Cardiovascular: Regular Rate, Rhythm, Normal Peripheral Pulses, Other (irregular) Capillary Refill: Less Than 3 Seconds Gastrointestinal: non tender, soft, abnormal bowel sounds, other (hypoactive BS) Extremity: No Pedal Edema, Other (normal ROM right arm. left arm and leg hemiparetic - left hand contractured) Neurologic/Psychiatric: Disoriented, Other (somnolent/altered) Skin: Warm/Dry, Pallor Results Lab Laboratory Tests 03/29/23 09:15 03/30/23 04:35 Assessment/Plan Assessment/Plan On mechanical vent after baclofen OD, no further Sz, ET is low, pull back 3 cm, OG should be advanced 5 cm Low Phosphorus, to be replaced Add IV Versed to sedation list Leave on vent today Critical Care: Ventilator Management Time spent with patient (mins): 25 RIOS DEL RIO MD Mar 30, 2023 08:19
--- NOTE | 2023-03-30 08:36 | Diagnostic Imaging Report ---
CHEST 1 VIEW, AP/PA ONLY Indication: Respiratory failure. Comparison: 03/29/2023 Findings: Stable low-lying ET tube with tip near the caron. Approximately 3 cm retraction is advised. Enteric tube terminates in the proximal stomach. Low lung volumes. There is improved aeration of left lung base. No pleural effusion or pneumothorax. Normal heart size. Right IJ central venous catheter again has tip extending into the internal jugular vein. Impression: 1. Unchanged malpositioned right IJ central venous catheter with tip pointing cranially and likely in the internal jugular vein. 2. ET tube has tip near the caron. Recommend approximately 3 cm retraction. Dictated by: Dictated on workstation # [id number]
[2023-03-30] MEDS ORDERED: POTASSIUM PHOSPHATE INJ 30 MM in NS (IVPB) 250 ML 250 ML IV ONE (09:30)
[2023-03-30] MEDS: MIDAZOLAM DRIP PRE-MIX 100 ML IV SCH ×2 (09:36→22:27)
[2023-03-30 10:14] VITALS: BP 104/88
[2023-03-30] MEDS: PANTOPRAZOLE INJECTION 40 MG VIAL IV SCH (10:23)
--- NOTE | 2023-03-30 10:59 | Progress Note ---
CLARIBEL PERSAUD MD, RESIDENT 03/30/23 1059: Subjective HPI/CC On Admission Date Seen by Provider: Mar 30, 2023 Time Seen by Provider: 08:00 Chief complaint: Overdose on baclofen HPI: This is a 53-year-old female with polysubstance abuse history who presented after an overdose of baclofen. patient quickly declined requiring intubation to protect airway. Subjective/Events-last exam Patient continues to be intubated this morning. Overnight it appears that patient was continuing to have episodes of agitation. She was tried on Precedex which resulted in significant bradycardia and hypotension. This was since discontinued and patient was being managed on propofol. She was also started on Levophed due to low pressures. A spontaneous breathing trial was also attempted last night which patient tolerated well however she did continue to have significant agitation with that and thus was remained debated. Per nurse, Poison control was contacted last night who did state that patient may need to remain intubated for 4 to 5 days. Review of Systems Unable to obtain as patient is intubated and sedated. Objective Exam Vital Signs Vital Signs Date Time Temp Pulse Resp B/P (MAP) Pulse Ox O2 Delivery O2 Flow Rate FiO2 03/30/23 10:14 103 25 100 21 03/30/23 09:36 95/68 03/30/23 09:00 Mechanical Ventilator 30.00 03/30/23 08:00 36.2 Capillary Refill : Less Than 3 Seconds General Appearance: No Apparent Distress HEENT: Normal ENT Inspection, Other (Endotracheal tube in place) Neck: Normal Inspection Respiratory: Chest Non Tender, No Accessory Muscle Use, No Respiratory Distress, Other (Noting some rhonchi and wheezing in right lung) Cardiovascular: Regular Rate, Rhythm, No Edema, No Murmur Gastrointestinal: Normal Bowel Sounds, Non Tender, Soft Extremity: No Pedal Edema Neurologic/Psychiatric: Other (Sedated) Skin: Normal Color, Warm/Dry Results/Procedures Lab Laboratory Tests 03/30/23 04:35 Patient resulted labs reviewed. Imaging: Reviewed Imaging Report Assessment/Plan Assessment and Plan Assess & Plan/Chief Complaint Baclofen overdose Diagnosis/Problems Diagnosis/Problems (1) Baclofen overdose Status: Acute Assessment & Plan: Admitted for reported baclofen overdose. Thought to have taken 780 mg total. Debated for airway protection given decreasing GCS on presentation to the ED. Plan: Continue mechanical ventilation given that patient is intubated Monitor on purse seiner for bradycardia, if persisting consider atropine Continue Levophed for hypotension, wean as tolerated Per poison control reports symptoms will resolve in 24 hours however large overdoses can last several days Qualifiers: Qualified Codes: T42.8X2A - Poisoning by antiparkinsonism drugs and other central muscle-tone depressants, intentional self-harm, initial encounter (2) Endotracheally intubated Status: Acute Assessment & Plan: See above. Plan: Vent settings adjustments per eICU and RT. Continue propofol for sedation. Add on Versed for increasing agitation. Do not use Precedex given patient did not tolerate this. (3) Pneumonia Status: Acute Assessment & Plan: Chest x-ray was notable for patchy diffuse infiltrate in left lung. Patient otherwise stable other than signs of baclofen overdose. Leukocytosis noted today to 20.6. In addition noting rhonchi and wheezing in right lung which may be secondary to aspiration during intubation. Plan: Continue IV ceftriaxone for possible pneumonia (4) Suicide attempt Status: Acute Assessment & Plan: Per family, it was reported that this may have been an intentional suicide attempt. On presentation to the ED, patient was unsure why as she had taken so many medications however it was difficult to get clear answers from her. Plan: Stabilize patient Once patient is AAOx3, can assess for suicidality (5) Recent cerebrovascular accident (CVA) Status: Acute Assessment & Plan: Patient has a history of recent CVA with left-sided weakness. CT head repeated in the ED showed no progression. There was interval evolution of right MCA infarct. Will assess for any deficits once patient is awake however unlikely to be acute at this time. Plan: Restart patient's DAPT regimen once able to tolerate oral (6) History of methamphetamine abuse Status: Chronic Assessment & Plan: Patient has a history of methamphetamine use. UDS in the ED was negative. Positive for cannabis. (7) Hypophosphatemia Status: Acute Assessment & Plan: Phosphate of 1 today. Plan: Replete per protocol (8) Hypomagnesemia Status: Acute Assessment & Plan: Magnesium of 1.2 today. Plan: Replete per protocol. EMORY BERNAL DO 03/30/232112: Subjective Subjective/Events-last exam Intubation maintained Monitoring closely Objective Exam General Appearance: Chronically ill, Other (intubated) Assessment/Plan Assessment and Plan Assess & Plan/Chief Complaint OD Resp failure Plan: Add sedation I personally performed the vasquez portions of the visit, discussed case with resident and concur with resident documentation of history, physical exam, assessment and treatment plan unless otherwise noted. CLARIBEL PERSAUD MD, RESIDENT Mar 30, 2023 10:59 EMORY BERNAL DO Mar 30, 2023 21:13
[2023-03-30] MEDS: cefTRIAXone IV/IM 1,000 MG in NS (IVPB) 50 ML 50 ML IV SCH (14:23)
[2023-03-30] MEDS: ENOXAPARIN 40 MG/0.4 ML SYRINGE SC SCH (14:23)
--- NOTE | 2023-03-30 14:37 | Diagnostic Imaging Report ---
INDICATION: Respiratory failure, intubated, PICC line placement. TECHNIQUE: Single-view chest at 02:03 p.m. CORRELATION STUDY: 03/30/2023. FINDINGS: Endotracheal tube, gastric tube and right IJ central line remain in place. The right IJ remains malpositioned, directed laterally over the right lung apex. Left upper extremity central line has been placed. Tip is difficult to visualize but appears projecting over the expected location of the SVC. Heart size and mediastinum remain enlarged and prominent. Perihilar opacities are unchanged. IMPRESSION: 1. Left upper extremity central line has been placed. Tip is somewhat obscured but appears to be over the SVC. 2. A right IJ central line remains malpositioned, likely positioned within the lateral right subclavian vein region. Dictated by: Dictated on workstation # [id number]
[2023-03-30 14:38] VITALS: BP 93/57
[2023-03-30 18:31] VITALS: BP 105/61
[2023-03-30 22:10] VITALS: BP 123/73
[2023-03-31 02:22] VITALS: BP 115/98
[2023-03-31] MEDS: POTASSIUM CHLORIDE 20 MEQ TABLET PO SCH (04:48)
[2023-03-31] MEDS: POTASSIUM CL 10MEQ/50ML IVPB 50 ML IV SCH (04:48)
[2023-03-31] MEDS: MAGNESIUM 1 GM/100 ML IVPB 100 ML IV SCH ×3 (04:49→07:09)
[2023-03-31] MEDS ORDERED: MAGNESIUM 1 GM/100 ML IVPB 400 ML IV ONE (05:04)
[2023-03-31 06:04] VITALS: BP 101/58
[2023-03-31] MEDS: POTASSIUM CHLORIDE IV SCH ×3 (06:54→19:03)
[2023-03-31] MEDS: D5 LR IV SCH ×3 (06:54→19:03)
[2023-03-31 07:02] LABS: BASOPHILS % (AUTO) 0 % (0-10); EOSINOPHILS # (AUTO) 0.1 10^3/uL (0.0-0.3); EOSINOPHILS % (AUTO) 0 % (0-10); HEMATOCRIT 34 % (35-52); HEMOGLOBIN 11.5 g/dL (11.5-16.0); LYMPHOCYTES # (AUTO) 3.2 10^3/uL (1.0-4.0); LYMPHOCYTES % (AUTO) 29 % (12-44); MEAN CORPUSCULAR HEMOGLOBIN 29 pg (25-34); MEAN CORPUSCULAR HGB CONC 34 g/dL (32-36); MEAN CORPUSCULAR VOLUME 85 fL (80-99); MEAN PLATELET VOLUME 9.5 fL (9.0-12.2); MONOCYTES # (AUTO) 0.8 10^3/uL (0.0-1.0); MONOCYTES % (AUTO) 7 % (0-12); NEUTROPHILS % (AUTO) 63 % (42-75); PLATELET COUNT 255 10^3/uL (130-400); WHITE BLOOD COUNT 11.2 10^3/uL (4.3-11.0)
[2023-03-31 07:06] LABS: POTASSIUM 3.7 MMOL/L (3.6-5.0)
[2023-03-31 07:07] LABS: CALCIUM 7.7 MG/DL (8.5-10.1)
[2023-03-31 07:11] LABS: PHOSPHORUS 2.8 MG/DL (2.3-4.7)
[2023-03-31 07:12] LABS: CREATININE SERUM 0.69 MG/DL (0.60-1.30)
[2023-03-31 07:14] LABS: MAGNESIUM 2.6 MG/DL (1.6-2.4)
--- NOTE | 2023-03-31 07:27 | Diagnostic Imaging Report ---
INDICATION: Respiratory failure COMPARISON: 03/30/2023 FINDINGS: ET tube mid trachea. Left PICC lower SVC. OG in the distal stomach. No focal consolidation, effusion or pneumothorax. IMPRESSION: Stable chest. Support apparatus projects in good alignment. Dictated by: Dictated on workstation # [id number]
[2023-03-31] MEDS: PANTOPRAZOLE INJECTION 40 MG VIAL IV SCH (08:11)
--- NOTE | 2023-03-31 09:54 | Progress Note ---
CLARIBEL PERSAUD MD, RESIDENT 03/31/23 0954: Subjective HPI/CC On Admission Date Seen by Provider: Mar 31, 2023 Time Seen by Provider: 08:30 Chief complaint: Overdose on baclofen HPI: This is a 53-year-old female with polysubstance abuse history who presented after an overdose of baclofen. patient quickly declined requiring intubation to protect airway. Subjective/Events-last exam Patient continues to be stable this morning. Since starting the Versed yesterday, she has had no further episodes of agitation. Is still intubated at this time but vital signs are otherwise stable. Labs also remaining stable at this time. We will continue to monitor. Called Avelino per family request, stated he had no questions. Requested to be called once we attempt to wake up patient. Informed him that will likely not be today but we will keep him updated. Review of Systems Unable to obtain as patient is intubated and sedated. Objective Exam Vital Signs Vital Signs Date Time Temp Pulse Resp B/P (MAP) Pulse Ox O2 Delivery O2 Flow Rate FiO2 03/31/23 11:31 36.6 03/31/23 10:28 88 14 97 35 03/31/23 08:00 Mechanical Ventilator 03/31/23 06:51 3.00 35.00 Capillary Refill : Less Than 3 Seconds General Appearance: No Apparent Distress HEENT: Normal ENT Inspection Neck: Non Tender, Supple, Other (Endotracheal tube in place) Respiratory: Chest Non Tender, No Accessory Muscle Use, No Respiratory Distress, Other (Still has some rhonchi and crackling and left lobe however improved from yesterday) Cardiovascular: Regular Rate, Rhythm, No Edema, No Murmur Gastrointestinal: Normal Bowel Sounds, Non Tender, Soft Neurologic/Psychiatric: Other (Sedated) Skin: Normal Color, Warm/Dry Results/Procedures Lab Laboratory Tests 03/31/23 04:20 03/31/23 06:57 Patient resulted labs reviewed. Imaging: Reviewed Imaging Report Assessment/Plan Assessment and Plan Assess & Plan/Chief Complaint Baclofen overdose Diagnosis/Problems Diagnosis/Problems (1) Baclofen overdose Status: Acute Assessment & Plan: Admitted for reported baclofen overdose. Thought to have taken 780 mg total. Debated for airway protection given decreasing GCS on presentation to the ED. 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 Plan: Vent settings adjustments per eICU and RT. Continue propofol and Versed for sedation. wean as tolerated. do not use Precedex given patient did not tolerate this. Tube feeding started yesterday with goal to get to 40. Increase as tolerated. (3) Pneumonia Status: Acute Assessment & Plan: Chest x-ray was notable for patchy diffuse infiltrate in left lung. In addition noted rhonchi and wheezing in right lung which may be secondary to aspiration during intubation. Leukocytosis improved to 11.2 this morning. Plan: Continue IV ceftriaxone for possible pneumonia Sputum culture growing haemophilus influenza A, susceptible to cephalosporins. Will continue for now and change once patient is able to tolerate oral Qualifiers: Qualified Codes: J14 - Pneumonia due to hemophilus influenzae (4) Suicide attempt Status: Acute Assessment & Plan: Per family, it was reported that this may have been an intentional suicide attempt. On presentation to the ED, patient was unsure why as she had taken so many medications however it was difficult to get clear answers from her. Plan: Stabilize patient Once patient is AAOx3, can assess for suicidality (5) Recent cerebrovascular accident (CVA) Status: Acute Assessment & Plan: Patient has a history of recent CVA with left-sided weakness. CT head repeated in the ED showed no progression. There was interval evolution of right MCA infarct. Will assess for any deficits once patient is awake however unlikely to be acute at this time. Plan: Restart patient's DAPT regimen once able to tolerate oral (6) History of methamphetamine abuse Status: Chronic Assessment & Plan: Patient has a history of methamphetamine use. UDS in the ED was negative. Positive for cannabis. EMORY BERNAL DO 03/31/231952: Subjective Subjective/Events-last exam Patient remains intubated Baclofen will be out of her system in the next 3 days Continue Versed drip and propofol Objective Exam General Appearance: No Apparent Distress, WD/WN, Chronically ill, Other (Intubated) Respiratory: Lungs Clear, Normal Breath Sounds Cardiovascular: Regular Rate, Rhythm Assessment/Plan Assessment and Plan Assess & Plan/Chief Complaint Baclofen overdose Respiratory failure Plan: Supportive care CLARIBEL PERSAUD MD, RESIDENT Mar 31, 2023 09:54 EMORY BERNAL DO Mar 31, 2023 19:53
[2023-03-31 10:00] LABS: ABG BASE EXCESS 1.5 MMOL/L (-2.5-2.5); ABG OXYGEN SATURATION 97 % (94-100); ABG PCO2 31 MMHG (35-45); ABG PO2 71 MMHG (79-93); ABG TCO2 25.2 MMOL/L (21.0-31.0)
[2023-03-31 10:01] LABS: INSPIRED O2 35%; VENTILATOR YES
[2023-03-31 10:28] VITALS: BP 112/74
[2023-03-31] MEDS ORDERED: METOCLOPRAMIDE INJ 10 MG/2 ML IVP PRN (10:30)
[2023-03-31] MEDS ORDERED: RT-Ipratropium/Albuterol NEB 3 ML VIAL INH ONE (10:30)
--- NOTE | 2023-03-31 10:35 | Tele-ICU Progress Note ---
Subjective Date Seen by a Provider: Mar 31, 2023 Time Seen by a Provider: 10:34 Subjective/Events-last exam (Tele-ICU Physician , Progress Note ) Service provided via interactive audio and video telecommunications E-CARE system to a patient admitted to ICU bed in [facility]. Patient is seen today due to persistent need of ICU care Available chart/ vitals / labs / Images reviewed Video assessment done using teleICU camera, rest of exam as per RN Discussed with RN Events overnight : Afebrile hemodynamically stable Respiratory - 35% I/O = Drips: d5LR +k Pressors- levo VENT SETTINGS and ABG reviewed NOT CANDIDATE for SBTreviewed possible contraindications including Cardiov ascular Stability /Sedation Score / FI02/PEEP / ABG / CXR/ secretions Sedation, discussed with RN, RASS on versed 6 propofol 35 Hospital course: 53F:- suspected Suicidal Attempt with Baclofen OD, Respiratory Failure 03/30- became bradycardic on IV Precedex --> versed , LEVO started 03/31- 35 % agitated if stimulated, cough reflex+ . LEVO A/P OD with baclofen - based on pills bottle count - possible 780mg total of baclofen taken - CT 03/29 - no acute findings - supportive care - with large dose expected prolonge recovery - ? > 36 h -monitor fos myoclonus and convulsions, since intubated we can miss non- convulsive status- ? EEG vs Keppra vs observation - monitor reflexes ( reported complete loss of brainstem reflexes may be seen mimicking brain ) - poison control help -maintain hydration - renal status is stable - but might need HD if toxicity simproms are worse OR DEVELOPED GABBY - 03/31-Pt is agitated if stimulated, cough reflex + Acute resp failure - INTUBATED 03/29 for mental status ( and PNA ) - full vent support AC 18 - 500 + 5 35% - alcalotic - chenche rr to 14 -needs frequent suctioning , but fio2 better Shock - expected hypotension, and bradycardia with baclofen OD - cont supportive care LEFT PNA - ? aspiration cxr clear now ., but very thick creamy secretions - add nebs prn - cont abx , cx pending H/o methamphetamines -with withdrawal in ICU on precedex 09/2022 , allegedly quit now - UDS in the ED was negative. Positive for cannabis. Suspected suicidal attempt? - psych consult latter when extubated Chronic baclofen use - ? indications --- to prevent withdrawal, baclofen should be resumed once symptoms of toxicity improved H/o MCA stroke with left-sided hemiparesis 09/2022 - wheelchair [employer] - TF at 10 . with high residuals - reglan prn Lines : R IJ placed - need to be rremoved , LEFT PICC 03/30, (Central Line Necessity Reviewed) Hoover: + OG: Nutrition: TF Analgesia: Anxiety/ delirium VTE Prophylaxis: ana Stress Ulcer Prophylaxis: ppi Plans in collaboration with bedside consultants and IM MDs. Discussed with RN to reach out if any questions or concerns A total of _33 minutes of critical care time was devoted to this patient today, required to treat and/or prevent further deterioration of critical care condition ( as above ) . I am remotely monitoring this patient from another state. I am unable to do the bedside exam, and history/physical and pertinent information is taken from other notes in the computer and bedside staff. . Sepsis Event Evaluation Height, Weight, BMI Height: 5'2.00" Weight: 130lbs. 0.0oz. 58.743744jh; 33.02 BMI Method:Stated Exam Exam Patient acknowledged, consented, and participated in this virtual visit which was conducted using real time audio/video Vital Signs Date Time Temp Pulse Resp B/P (MAP) Pulse Ox O2 Delivery O2 Flow Rate FiO2 03/31/23 08:00 95 Mechanical Ventilator 35 03/31/23 07:52 36.5 03/31/23 07:26 61 101/58 03/31/23 06:51 93 Mechanical Ventilator 3.00 35.00 03/31/23 06:04 56 18 95 21 03/31/23 06:04 61 101/58 03/31/23 06:00 73 19 101/58 (72) 94 Mechanical Ventilator 21.00 03/31/23 05:00 92 18 138/74 (100) 96 Mechanical Ventilator 21.00 03/31/23 04:00 91 18 135/70 (98) 97 Mechanical Ventilator 21.00 03/31/23 03:40 95 Mechanical Ventilator 21 03/31/23 03:17 55 18 101/62 03/31/23 03:00 49 18 104/63 (77) 97 Mechanical Ventilator 21.00 03/31/23 02:55 49 03/31/23 02:22 93 18 97 21 03/31/23 02:00 100 18 115/98 (101) 91 Mechanical Ventilator 21.00 03/31/23 01:14 96 121/64 03/31/23 01:13 96 121/64 03/31/23 01:00 96 18 121/64 (80) 94 Mechanical Ventilator 21.00 03/31/23 01:00 96 03/31/23 00:00 83 18 130/71 (110) 93 Mechanical Ventilator 21.00 03/30/23 23:28 95 Mechanical Ventilator 21 03/30/23 23:00 88 18 133/78 (101) 98 Mechanical Ventilator 21.00 03/30/23 22:27 97 18 136/95 03/30/23 22:26 73 136/95 03/30/23 22:10 63 18 97 21 03/30/23 22:00 63 18 136/78 (83) 98 Mechanical Ventilator 21.00 03/30/23 21:00 76 18 116/72 (88) 98 Mechanical Ventilator 21.00 03/30/23 20:00 80 18 105/66 (76) 97 Mechanical Ventilator 21.00 03/30/23 20:00 95 Mechanical Ventilator 21 03/30/23 19:45 82 18 108/63 (80) 96 Mechanical Ventilator 21.00 03/30/23 19:29 35.7 82 18 104/65 (78) 95 Mechanical Ventilator 21.00 03/30/23 19:15 82 18 101/64 (69) 96 Mechanical Ventilator 21.00 03/30/23 19:00 53 18 96/54 (69) 98 Mechanical Ventilator 21.00 03/30/23 19:00 53 03/30/23 18:40 53 105/61 03/30/23 18:31 53 18 97 21 03/30/23 18:00 53 18 105/57 (73) 97 Mechanical Ventilator 21.00 03/30/23 17:00 68 124/73 (90) 97 Mechanical Ventilator 21.00 03/30/23 16:59 53 105/57 03/30/23 16:10 38.2 03/30/23 16:00 58 31 105/58 (74) 94 Mechanical Ventilator 21.00 03/30/23 16:00 Mechanical Ventilator 30 03/30/23 15:00 78 18 105/67 (80) 97 Mechanical Ventilator 21.00 03/30/23 14:38 99 18 95 21 03/30/23 14:00 56 93/57 (69) 98 Mechanical Ventilator 21.00 03/30/23 13:00 101 18 105/56 (72) 98 Mechanical Ventilator 21.00 03/30/23 13:00 96 03/30/23 12:59 95 98/53 03/30/23 12:00 95 19 95/59 (71) 94 Mechanical Ventilator 21.00 03/30/23 12:00 Mechanical Ventilator 30 03/30/23 11:38 37.6 03/30/23 11:22 99 93/57 03/30/23 11:00 95 24 98/53 (68) 97 Mechanical Ventilator 30.00 I & O 03/31/23 07:00 Intake Total 30 ml Output Total 2375 ml Balance -2345 ml Height & Weight Height: 5'2.00" Weight: 130lbs. 0.0oz. 58.664770qb; 33.02 BMI Method:Stated General Appearance: No Apparent Distress HEENT: Normal ENT Inspection Neck: Non Tender, Supple, Other (Endotracheal tube in place) Respiratory: Chest Non Tender, No Accessory Muscle Use, No Respiratory Distress, Other (Still has some rhonchi and crackling and left lobe however improved from yesterday) Cardiovascular: Regular Rate, Rhythm, No Edema, No Murmur Capillary Refill: Less Than 3 Seconds Gastrointestinal: non tender, soft, abnormal bowel sounds, other (hypoactive BS) Extremity: No Pedal Edema, Other (normal ROM right arm. left arm and leg hemiparetic - left hand contractured) Neurologic/Psychiatric: Other (Sedated) Skin: Normal Color, Warm/Dry Results Lab Laboratory Tests 03/30/23 04:35 03/31/23 04:20 03/31/23 06:57 Assessment/Plan Assessment/Plan 1 JAYSON DAWSON MD Mar 31, 2023 10:35
[2023-03-31 12:09] LABS: ABG BASE EXCESS 1.6 MMOL/L (-2.5-2.5); ABG OXYGEN SATURATION 97 % (94-100); ABG PCO2 33 MMHG (35-45); ABG PH 7.48 (7.37-7.43); ABG PO2 77 MMHG (79-93); ABG TCO2 25.6 MMOL/L (21.0-31.0); INSPIRED O2 35%; VENTILATOR YES
[2023-03-31] MEDS ORDERED: GABA300C PO (12:31)
[2023-03-31] MEDS ORDERED: HYDR-700 PO (12:31)
[2023-03-31] MEDS ORDERED: ATOR80TA76 PO (12:31)
[2023-03-31] MEDS ORDERED: ERGO1250 PO (12:31)
[2023-03-31] MEDS ORDERED: DULO60CA59 PO (12:31)
[2023-03-31] MEDS ORDERED: BACL10TA PO (12:31)
[2023-03-31] MEDS ORDERED: ASPI-1238 PO (12:31)
[2023-03-31] MEDS ORDERED: CLOP75TA28 PO (12:32)
[2023-03-31] MEDS: ENOXAPARIN 40 MG/0.4 ML SYRINGE SC SCH (13:20)
[2023-03-31] MEDS: cefTRIAXone IV/IM 1,000 MG in NS (IVPB) 50 ML 50 ML IV SCH (13:23)
[2023-03-31] MEDS: MIDAZOLAM DRIP PRE-MIX 100 ML IV SCH (13:48)
[2023-03-31] MEDS: RT-Ipratropium/Albuterol NEB 3 ML VIAL INH SCH ×3 (14:00→22:00)
[2023-03-31 14:02] VITALS: BP 106/67
[2023-03-31] MEDS: NOREPINEPHRINE 8 MG/250 ML 250 ML IV SCH (17:01)
[2023-03-31 18:54] VITALS: BP 111/63
[2023-03-31 22:01] VITALS: BP 114/69
[2023-04-01 02:10] VITALS: BP 133/74
[2023-04-01] MEDS: RT-Ipratropium/Albuterol NEB 3 ML VIAL INH SCH ×6 (02:10→22:25)
[2023-04-01] MEDS: D5 LR IV SCH ×2 (05:02→15:27)
[2023-04-01] MEDS: POTASSIUM CHLORIDE IV SCH ×2 (05:02→15:27)
[2023-04-01] MEDS: MIDAZOLAM DRIP PRE-MIX 100 ML IV SCH (05:02)
[2023-04-01 05:11] LABS: BASOPHILS % (AUTO) 0 % (0-10); EOSINOPHILS % (AUTO) 0 % (0-10); HEMATOCRIT 32 % (35-52); HEMOGLOBIN 10.9 g/dL (11.5-16.0); LYMPHOCYTES % (AUTO) 21 % (12-44); MEAN CORPUSCULAR HEMOGLOBIN 29 pg (25-34); MEAN CORPUSCULAR HGB CONC 34 g/dL (32-36); MEAN CORPUSCULAR VOLUME 85 fL (80-99); MEAN PLATELET VOLUME 9.8 fL (9.0-12.2); MONOCYTES # (AUTO) 0.6 10^3/uL (0.0-1.0); MONOCYTES % (AUTO) 7 % (0-12); NEUTROPHILS # (AUTO) 6.9 10^3/uL (1.8-7.8); NEUTROPHILS % (AUTO) 72 % (42-75); PLATELET COUNT 214 10^3/uL (130-400); WHITE BLOOD COUNT 9.7 10^3/uL (4.3-11.0)
[2023-04-01 05:27] LABS: ALBUMIN 2.8 GM/DL (3.2-4.5); BILIRUBIN,TOTAL 0.5 MG/DL (0.1-1.0); CREATININE SERUM 0.73 MG/DL (0.60-1.30); MAGNESIUM 1.8 MG/DL (1.6-2.4); PHOSPHORUS 3.9 MG/DL (2.3-4.7); POTASSIUM 4.7 MMOL/L (3.6-5.0); TOTAL PROTEIN 5.3 GM/DL (6.4-8.2)
[2023-04-01 05:37] LABS: ABG BASE EXCESS 1.1 MMOL/L (-2.5-2.5); ABG OXYGEN SATURATION 85 % (94-100); ABG PCO2 30 MMHG (35-45); ABG PO2 49 MMHG (79-93); ABG TCO2 24.3 MMOL/L (21.0-31.0); INSPIRED O2 21%; VENTILATOR YES
[2023-04-01] MEDS: POTASSIUM CHLORIDE 20 MEQ TABLET PO SCH (05:42)
[2023-04-01] MEDS: POTASSIUM CL 10MEQ/50ML IVPB 50 ML IV SCH (05:42)
[2023-04-01] MEDS: MAGNESIUM 1 GM/100 ML IVPB 100 ML IV SCH ×3 (05:43→05:54)
[2023-04-01] MEDS ORDERED: MAGNESIUM 1 GM/100 ML IVPB 200 ML IV ONE (05:52)
[2023-04-01 06:48] VITALS: BP 108/63
--- NOTE | 2023-04-01 08:47 | Tele-ICU Progress Note ---
Subjective Date Seen by a Provider: Apr 01, 2023 Time Seen by a Provider: 08:40 Subjective/Events-last exam (Tele-ICU Physician , consultation as per request of PCP Service provided via interactive audio and video telecommunications E-CARE system to a patient admitted to ICU bed in [facility]. Available chart/ vitals / labs / Images reviewed H&P is from ER notes Patient's information available about PMH, Shx, Fhx allergy reviewed in EMR. ROS as per chart and RN report Now in ICU, hemodynamically stable Video assessment done using teleICU camera, rest of exam as per RN Discussed with RN. Remains intubated 4th day on vent, on AC 18, Vt 500, FiO2 35%, PEEP 5, On IV Versed @ 6, if lowers becomes very agitated, become bradycardic on IV Precedex Intubated for baclofen OD, poison control advised that pt may need intubation for total of 4-5 days, has thick yellowish secretions, Has H flu in sputum beta- lactam neg. On IV Rocephin, I reviewed today's CXR look clear, ET ok, does have cough reflex Had right IJ has been improved, left PICC site looks ok On IV Reglan for high residuals, now better TF @ 30 mL/h Sepsis Event Evaluation Height, Weight, BMI Height: 5'2.00" Weight: 130lbs. 0.0oz. 58.650190fx; 34.31 BMI Method:Stated Exam Exam Patient acknowledged, consented, and participated in this virtual visit which was conducted using real time audio/video Vital Signs Date Time Temp Pulse Resp B/P (MAP) Pulse Ox O2 Delivery O2 Flow Rate FiO2 04/01/23 08:00 112 18 125/76 (92) 97 Mechanical Ventilator 21.00 04/01/23 07:00 115 04/01/23 07:00 115 22 132/78 (96) 97 Mechanical Ventilator 21.04/01/23 06:50 113 108/63 04/01/23 06:00 115 20 145/78 (100) 97 Mechanical Ventilator 21.00 04/01/23 05:02 110 14 126/76 04/01/23 05:00 115 13 125/75 (92) 100 Mechanical Ventilator 21.04/01/23 04:00 115 14 103/62 (76) 96 Mechanical Ventilator 21.00 04/01/23 04:00 Mechanical Ventilator 21 04/01/23 03:43 37.4 Mechanical Ventilator 21.00 04/01/23 03:00 113 14 109/70 (83) 96 Mechanical Ventilator 21.00 04/01/23 02:46 113 125/72 04/01/23 02:10 107 14 97 21 04/01/23 02:00 110 14 125/72 (89) 97 Mechanical Ventilator 21.00 04/01/23 01:00 115 18 130/72 (91) 97 Mechanical Ventilator 21.00 04/01/23 01:00 121 04/01/23 00:27 114 130/40 04/01/23 00:02 36.8 Mechanical Ventilator 21.00 04/01/23 00:00 109 14 121/66 (84) 96 Mechanical Ventilator 21.00 03/31/23 23:46 Mechanical Ventilator 21 03/31/23 23:00 110 20 123/69 (87) 96 Mechanical Ventilator 21.00 03/31/23 22:01 103 14 96 21 03/31/23 22:00 104 14 118/65 (82) 96 Mechanical Ventilator 21.00 03/31/23 21:00 111 14 114/72 (86) 96 Mechanical Ventilator 21.00 03/31/23 20:27 114 111/68 03/31/23 20:00 Mechanical Ventilator 21 03/31/23 20:00 113 15 112/65 (81) 95 Mechanical Ventilator 21.00 03/31/23 19:50 37.2 03/31/23 19:00 98 14 126/82 (97) 100 Mechanical Ventilator 21.00 03/31/23 19:00 120 03/31/23 18:54 100 14 95 21 03/31/23 18:42 Mechanical Ventilator 21.00 03/31/23 18:00 97 14 109/70 (83) 96 Mechanical Ventilator 25.00 03/31/23 17:48 97 109/70 03/31/23 17:01 108 102/66 03/31/23 17:00 103 14 108/67 (81) 96 Mechanical Ventilator 25.00 03/31/23 16:00 97 Mechanical Ventilator 25 03/31/23 16:00 108 15 108/68 (81) 95 Mechanical Ventilator 25.00 03/31/23 16:00 36.1 03/31/23 15:00 108 19 102/66 (78) 93 Mechanical Ventilator 25.00 03/31/23 14:30 Mechanical Ventilator 25.00 03/31/23 14:02 93 16 95 30 03/31/23 14:00 93 32 126/66 (86) 96 Mechanical Ventilator 21.00 03/31/23 13:48 88 26 119/72 03/31/23 13:48 88 119/72 03/31/23 13:01 91 03/31/23 13:00 90 29 107/62 (77) 97 Mechanical Ventilator 21.00 03/31/23 12:00 88 26 119/72 (88) 97 Mechanical Ventilator 21.00 03/31/23 12:00 97 Mechanical Ventilator 35 03/31/23 11:31 36.6 03/31/23 11:26 88 119/72 03/31/23 11:00 84 18 123/77 (92) 98 Mechanical Ventilator 21.00 03/31/23 10:28 88 14 97 35 03/31/23 10:00 89 18 119/75 (90) 96 Mechanical Ventilator 21.00 03/31/23 09:00 89 18 112/65 (81) 95 Mechanical Ventilator 21.00 I & O 04/01/23 07:00 Intake Total 120 ml Output Total 2950 ml Balance -2830 ml Height & Weight Height: 5'2.00" Weight: 130lbs. 0.0oz. 58.521909dv; 34.31 BMI Method:Stated General Appearance: No Apparent Distress, WD/WN, Chronically ill, Other (Intubated) HEENT: Normal ENT Inspection Neck: Non Tender, Supple, Other (Endotracheal tube in place) Respiratory: Lungs Clear, Normal Breath Sounds, Other (lungs are sounding better, less rhonchi) Cardiovascular: Regular Rate, Rhythm, Tachycardia Capillary Refill: Less Than 3 Seconds Gastrointestinal: normal bowel sounds, non tender, soft, abnormal bowel sounds, other (hypoactive BS) Extremity: No Pedal Edema, Other (normal ROM right arm. left arm and leg hemiparetic - left hand contractured) Neurologic/Psychiatric: Other (Sedated) Skin: Normal Color, Warm/Dry Results Lab Laboratory Tests 03/31/23 06:57 04/01/23 04:55 Assessment/Plan Assessment/Plan Acute resp failure after Baclofen OD, Will try SBT to see if can handle WOB Depression, will need psych to see after intubation and awake PNA continue on IV Rochephin Hx of methamphetamine use-watch for withdrawal Hx of MCA CVA, pt normally is in wheelchair, probably explains need for baclofen On GIB prophylaxsis, TF-continue IV Reglan, q6 PRN Critical Care: Ventilator Management Time spent with patient (mins): 30 RIOS DEL RIO MD Apr 01, 2023 08:47
[2023-04-01] MEDS: PANTOPRAZOLE INJECTION 40 MG VIAL IV SCH (08:56)
--- NOTE | 2023-04-01 09:24 | Diagnostic Imaging Report ---
INDICATION: Respiratory failure. Time of Exam: 5:26 AM Correlation is made with prior chest one day earlier. FINDINGS: ET tube and NG tube remain in place. There has been development of some consolidation in the left base since yesterday's study. Left hemidiaphragm is now obscured. There is central congestion noted. Upper lung silverman are clear. There is no pneumothorax. Left upper extremity PICC line has tip overlying the SVC right atrial junction. IMPRESSION: Development of left basilar consolidation when compared to examination one day earlier. Dictated by: Dictated on workstation # [id number]
--- NOTE | 2023-04-01 10:10 | Progress Note ---
CLARIBEL PERSAUD MD, RESIDENT 04/01/23 1010: Subjective HPI/CC On Admission Date Seen by Provider: Apr 01, 2023 Time Seen by Provider: 08:50 Chief complaint: Overdose on baclofen HPI: This is a 53-year-old female with polysubstance abuse history who presented after an overdose of baclofen. patient quickly declined requiring intubation to protect airway. Subjective/Events-last exam Patient continues to be stable today. Was able to be weaned off of the Levophed yesterday. No concerns per nurses overnight. Review of Systems Unable to obtain as patient is intubated and sedated. Objective Exam Vital Signs Vital Signs Date Time Temp Pulse Resp B/P (MAP) Pulse Ox O2 Delivery O2 Flow Rate FiO2 04/01/23 09:00 112 14 120/70 (87) 96 Mechanical Ventilator 21.00 04/01/23 08:00 21 04/01/23 03:43 37.4 Capillary Refill : Less Than 3 Seconds General Appearance: No Apparent Distress HEENT: Normal ENT Inspection, Other (Endotracheal tube in place with NG tube) Neck: Normal Inspection, Non Tender Respiratory: Chest Non Tender, No Accessory Muscle Use, No Respiratory Distress, Other (Continuing to hear rhonchi and crackles in left lung field) Cardiovascular: Regular Rate, Rhythm, No Edema, No Murmur Gastrointestinal: Normal Bowel Sounds, Non Tender, Soft Extremity: No Pedal Edema Neurologic/Psychiatric: Other (Sedated) Skin: Normal Color, Warm/Dry Results/Procedures Lab Laboratory Tests 04/01/23 04:55 Patient resulted labs reviewed. Imaging: Reviewed Imaging Report Assessment/Plan Assessment and Plan Assess & Plan/Chief Complaint Baclofen overdose Diagnosis/Problems Diagnosis/Problems (1) Baclofen overdose Status: Acute Assessment & Plan: Admitted for reported baclofen overdose. Thought to have taken 780 mg total. Debated for airway protection given decreasing GCS on pre sentation to the ED. Plan: Continue mechanical ventilation Monitor on telemetry Continue monitoring off of Levophed Per poison control, reports symptoms will resolve in 24 hours however large overdoses can last several days Continue fluids, currently on LR D5 with 20 KCl at 100 mL/h Qualifiers: Qualified Codes: T42.8X2A - Poisoning by antiparkinsonism drugs and other central muscle-tone depressants, intentional self-harm, initial encounter (2) Endotracheally intubated Status: Acute Assessment & Plan: See above. Plan: Vent settings adjustments per eICU and RT. Continue propofol and Versed for sedation. wean as tolerated. do not use Precedex given patient did not tolerate this. Tube feeding started yesterday with goal to get to 40. Increase as tolerated. (3) Pneumonia Status: Acute Assessment & Plan: Chest x-ray was notable for patchy diffuse infiltrate in left lung. In addition noted rhonchi and wheezing in right lung which may be secondary to aspiration during intubation. Leukocytosis improved to 11.2 this morning. Plan: Continue IV ceftriaxone Sputum culture growing haemophilus influenza A, susceptible to cephalosporins. Will continue for now and change once patient is able to tolerate oral Qualifiers: Qualified Codes: J14 - Pneumonia due to hemophilus influenzae (4) Suicide attempt Status: Acute Assessment & Plan: Per family, it was reported that this may have been an intentional suicide attempt. On presentation to the ED, patient was unsure why as she had taken so many medications however it was difficult to get clear answers from her. Plan: Stabilize patient Once patient is AAOx3, can assess for suicidality Plan for social work consult once patient is awake (5) Recent cerebrovascular accident (CVA) Status: Acute Assessment & Plan: Patient has a history of recent CVA with left-sided weakness. CT head repeated in the ED showed no progression. There was interval evolution of right MCA infarct. Will assess for any deficits once patient is awake however unlikely to be acute at this time. Plan: Restart patient's DAPT regimen once able to tolerate oral (6) History of methamphetamine abuse Status: Chronic Assessment & Plan: Patient has a history of methamphetamine use. UDS in the ED was negative. Positive for cannabis. EMORY BERNAL DO 04/02/23 0458: Subjective Subjective/Events-last exam Patient remains intubated We will perform SBT today Objective Exam General Appearance: No Apparent Distress, WD/WN, Chronically ill, Other (Sedated and intubated) Respiratory: Normal Breath Sounds, No Accessory Muscle Use Assessment/Plan Assessment and Plan Assess & Plan/Chief Complaint Supportive care SBT today I personally performed the vasquez portions of the visit, discussed case with resident and concur with resident documentation of history, physical exam, assessment and treatment plan unless otherwise noted. CLARIBEL PERSAUD MD, RESIDENT Apr 01, 2023 10:10 EMORY BERNAL DO Apr 02, 2023 04:58
[2023-04-01 11:01] VITALS: BP 126/73
[2023-04-01] MEDS: NOREPINEPHRINE 8 MG/250 ML 250 ML IV SCH (11:03)
[2023-04-01 14:10] VITALS: BP 148/87
[2023-04-01] MEDS: cefTRIAXone IV/IM 1,000 MG in NS (IVPB) 50 ML 50 ML IV SCH (15:31)
[2023-04-01] MEDS: ENOXAPARIN 40 MG/0.4 ML SYRINGE SC SCH (15:31)
[2023-04-01] MEDS: ACETAMINOPHEN 325 MG/10.15 ML ORAL SOLN UDC PO PRN (17:43)
[2023-04-01 18:44] VITALS: BP 129/73
[2023-04-01 22:27] VITALS: BP 152/78
[2023-04-02] MEDS: D5 LR IV SCH ×3 (01:27→23:10)
[2023-04-02] MEDS: POTASSIUM CHLORIDE IV SCH ×3 (01:27→23:10)
[2023-04-02] MEDS: RT-Ipratropium/Albuterol NEB 3 ML VIAL INH SCH ×6 (03:07→20:53)
[2023-04-02 03:08] VITALS: BP 152/75
[2023-04-02] MEDS: NOREPINEPHRINE 8 MG/250 ML 250 ML IV SCH (05:58)
[2023-04-02 06:13] LABS: POTASSIUM 4.4 MMOL/L (3.6-5.0)
[2023-04-02 06:14] LABS: CALCIUM 8.5 MG/DL (8.5-10.1)
[2023-04-02 06:16] LABS: TOTAL PROTEIN 5.8 GM/DL (6.4-8.2)
[2023-04-02 06:18] LABS: BILIRUBIN,TOTAL 0.7 MG/DL (0.1-1.0)
[2023-04-02 06:19] LABS: PHOSPHORUS 3.4 MG/DL (2.3-4.7)
[2023-04-02] MEDS: POTASSIUM CL 10MEQ/50ML IVPB 50 ML IV SCH (06:19)
[2023-04-02] MEDS: POTASSIUM CHLORIDE 20 MEQ TABLET PO SCH (06:19)
[2023-04-02 06:20] LABS: CREATININE SERUM 0.79 MG/DL (0.60-1.30)
[2023-04-02 06:22] LABS: MAGNESIUM 1.6 MG/DL (1.6-2.4)
[2023-04-02] MEDS: MAGNESIUM 1 GM/100 ML IVPB 100 ML IV SCH ×5 (06:26→08:35)
[2023-04-02 07:12] VITALS: BP 125/78
[2023-04-02] MEDS: PANTOPRAZOLE INJECTION 40 MG VIAL IV SCH (07:49)
--- NOTE | 2023-04-02 09:06 | Tele-ICU Progress Note ---
Subjective Date Seen by a Provider: Apr 02, 2023 Subjective/Events-last exam This virtual visit was conducted using real time audio/video. Thank you for asking us to see this patient for respiratory insufficiency due to Baclofen OD, UDS+ for Kristi. Recent events: Failed sed. vacation overnight. PE: VSS. O2 sat 94% on AC14/500/21%/+5. HEENT: No obvious masses, adenopathy or JVD. Chest: wheezes on auscultation. CV: RRR S1 S2 No murmur or added sounds. Abd: Non-tender. Bowel sounds Y. : Unremarkable. [place] Y. W[employer]ATOR AND [employer] REPA[employer]ER/psychiatric: Grossly intact. No obvious focal findings. Extremities: No edema. Capillary refill < 3 seconds. Skin: unremarkable. Results: Elevated WCC 12.6, BG 264. Decreased Hb 11.4. B.5/30/49 0n 21%. CXR: poor quality, R infilt., L basilar inf.. Available chart/ vitals / labs / images reviewed. Video assessment done using teleICU camera, rest of exam as per RN. A/P: Respiratory insufficiency: Continue present management with vent., duonebs, Prop., Versed Monitor for increasing oxygenation needs. Critical Care: critically ill patient. Cont. Areli., TF, reglan. abx, PRN pressors. Discussed with DANICA Travis. Asked RN to reach out to eICU if any questions or concerns later. Time spent with patient/coordination of care with other health professionals (mins): 20 Sepsis Event Evaluation Height, Weight, BMI Height: 5'2.00" Weight: 130lbs. 0.0oz. [id number]; 34.31 BMI Method:Stated Exam Exam Patient acknowledged, consented, and participated in this virtual visit which was conducted using real time audio/video Vital Signs Date Time Temp Pulse Resp B/P (MAP) Pulse Ox O2 Delivery O2 Flow Rate FiO2 04/02/23 08:22 37.4 04/02/23 08:08 Mechanical Ventilator 21 04/02/23 08:00 125 18 142/91 (102) 94 Mechanical Ventilator 21.00 04/02/23 07:54 124 142/84 04/02/23 07:49 123 142/84 04/02/23 07:12 120 14 93 21 04/02/23 07:00 117 14 125/78 (96) 93 Mechanical Ventilator 21.00 04/02/23 07:00 118 04/02/23 06:00 128 19 151/81 (104) 91 Mechanical Ventilator 21.00 04/02/23 05:00 126 19 156/80 (105) 95 Mechanical Ventilator 21.00 04/02/23 04:00 128 13 151/73 (99) 96 Mechanical Ventilator 21.00 04/02/23 04:00 Mechanical Ventilator 21 04/02/23 03:08 118 15 95 21 04/02/23 03:00 121 14 152/75 (100) 95 Mechanical Ventilator 21.00 04/02/23 02:00 120 21 146/72 (96) 95 Mechanical Ventilator 21.00 04/02/23 01:00 115 14 155/77 (103) 96 Mechanical Ventilator 21.00 04/02/23 00:08 120 04/02/23 00:05 37.5 04/02/23 00:00 123 20 154/74 (100) 96 Mechanical Ventilator 21.00 04/01/23 23:59 Mechanical Ventilator 21 04/01/23 23:00 123 24 161/76 (104) 93 Mechanical Ventilator 21.00 04/01/23 22:27 121 18 96 21 04/01/23 22:00 123 28 155/81 (105) 91 Mechanical Ventilator 21.00 04/01/23 21:00 113 14 123/75 (91) 98 Mechanical Ventilator 21.00 04/01/23 20:05 37.6 04/01/23 20:00 Mechanical Ventilator 21 04/01/23 20:00 118 14 139/68 (91) 97 Mechanical Ventilator 21.00 04/01/23 19:00 114 14 135/74 (94) 97 Mechanical Ventilator 21.00 04/01/23 18:58 114 04/01/23 18:44 113 14 98 21 04/01/23 18:13 37.9 04/01/23 18:00 113 14 155/83 (107) 98 Mechanical Ventilator 21.00 04/01/23 17:43 38.6 04/01/23 17:00 120 14 151/92 (111) 98 Mechanical Ventilator 21.00 04/01/23 16:00 Mechanical Ventilator 21 04/01/23 16:00 124 14 150/87 (108) 96 Mechanical Ventilator 21.00 04/01/23 15:00 125 20 147/82 (103) 94 Mechanical Ventilator 21.00 04/01/23 15:00 125 20 147/87 (107) 94 Mechanical Ventilator 21.00 04/01/23 14:10 123 20 93 21 04/01/23 14:00 121 23 148/87 (107) 100 Mechanical Ventilator 21.00 04/01/23 13:00 115 14 135/75 (95) 96 Mechanical Ventilator 21.00 04/01/23 12:56 121 04/01/23 12:55 112 120/70 04/01/23 12:00 113 14 123/78 (93) 97 Mechanical Ventilator 21.00 04/01/23 12:00 Mechanical Ventilator 21 04/01/23 11:03 112 120/70 04/01/23 11:01 105 14 98 21 04/01/23 11:00 105 14 126/73 (90) 98 Mechanical Ventilator 21.00 04/01/23 10:00 111 14 121/63 (82) 97 Mechanical Ventilator 21.00 I & O 04/02/23 07:00 Intake Total 1780 ml Output Total 4100 ml Balance -2320 ml Height & Weight Height: 5'2.00" Weight: 130lbs. 0.0oz. 58.101658af; 34.31 BMI Method:Stated General Appearance: No Apparent Distress, WD/WN, Chronically ill, Other (Sedated and intubated) HEENT: Normal ENT Inspection Neck: Non Tender, Supple, Other (Endotracheal tube in place) Respiratory: Normal Breath Sounds, No Accessory Muscle Use Cardiovascular: Regular Rate, Rhythm, Tachycardia Capillary Refill: Less Than 3 Seconds Gastrointestinal: normal bowel sounds, non tender, soft, abnormal bowel sounds, other (hypoactive BS) Extremity: No Pedal Edema, Other (normal ROM right arm. left arm and leg hemiparetic - left hand contractured) Neurologic/Psychiatric: Other (Sedated) Skin: Normal Color, Warm/Dry Results Lab Laboratory Tests 04/01/23 04:55 04/02/23 05:20 Assessment/Plan Assessment/Plan See free text. Critical Care: Ventilator Management MARIE PAZ MD Apr 02, 2023 09:06
--- NOTE | 2023-04-02 09:21 | Diagnostic Imaging Report ---
INDICATION: Respiratory failure. Intubated patient. COMPARISON: 04/01/2023 FINDINGS: Single frontal radiographic view of the chest was obtained and demonstrates indwelling endotracheal tube with tip at the lower level of clavicular heads. Gastric tube is noted, but extends inferiorly beyond the [id number]. Left upper extremity PICC line is also present with tip in lower SVC. Lungs continue to show low inspiratory volumes. There is new opacification within the base of the right upper lobe. Left basilar opacification also persists. No large effusion or pneumothorax is seen. Cardiac silhouette is borderline prominent. IMPRESSION:. Low lung volumes with areas of infiltrate versus atelectasis within the right midlung and left base. Continued followup is advised. Dictated by: Dictated on workstation # [id number]
[2023-04-02 10:46] VITALS: BP 120/66
--- NOTE | 2023-04-02 11:57 | Progress Note ---
CLARIBEL PERSAUD MD, RESIDENT 04/02/23 1157: Subjective HPI/CC On Admission Date Seen by Provider: Apr 02, 2023 Time Seen by Provider: 08:30 Chief complaint: Overdose on baclofen HPI: This is a 53-year-old female with polysubstance abuse history who presented after an overdose of baclofen. patient quickly declined requiring intubation to protect airway. Subjective/Events-last exam Attempted spontaneous breathing trial this a.m. which patient did not tolerate. She became agitated and required restart of her sedation including propofol and Versed. She has been tachycardic and hypertensive. Does have a leukocytosis this morning and did fever yesterday. No other overnight events were noted. Review of Systems Unable to obtain as patient is intubated and sedated. Objective Exam Vital Signs Vital Signs Date Time Temp Pulse Resp B/P (MAP) Pulse Ox O2 Delivery O2 Flow Rate FiO2 04/02/23 11:19 Mechanical Ventilator 21 04/02/23 11:14 38.1 04/02/23 11:00 118 14 94 21.00 Capillary Refill : Less Than 3 Seconds General Appearance: No Apparent Distress HEENT: PERRL/EOMI Neck: Non Tender, Supple Respiratory: Chest Non Tender, No Accessory Muscle Use, No Respiratory Distress, Other (Noting crackles on the left side of chest) Cardiovascular: No Murmur, Normal Peripheral Pulses, Tachycardia Gastrointestinal: Normal Bowel Sounds, Non Tender, Soft Extremity: No Pedal Edema Skin: Normal Color, Warm/Dry Results/Procedures Lab Laboratory Tests 04/02/23 05:20 Patient resulted labs reviewed. Imaging: Reviewed Imaging Report Assessment/Plan Assessment and Plan Assess & Plan/Chief Complaint Baclofen overdose Diagnosis/Problems Diagnosis/Problems (1) Baclofen overdose Status: Acute Assessment & Plan: Admitted for reported baclofen overdose. Thought to have taken 780 mg total. Debated for airway protection given decreasing GCS on presentation to the ED. Plan: Continue mechanical ventilation Monitor on telemetry Continue monitoring off of Levophed Per poison control, reports symptoms will resolve in 24 hours however large overdoses can last several days Continue fluids, currently on LR D5 with 20 KCl at 100 mL/h - Adding SSI Qualifiers: Qualified Codes: T42.8X2A - Poisoning by antiparkinsonism drugs and other central muscle-tone depressants, intentional self-harm, initial encounter (2) Endotracheally intubated Status: Acute Assessment & Plan: See above. Plan: Vent settings adjustments per eICU and RT. Continue propofol and Versed for sedation. wean as tolerated. do not use Prec edex given patient did not tolerate this. Tube feeding started yesterday with goal to get to 40. Increase as tolerated. (3) Pneumonia Status: Acute Assessment & Plan: Chest x-ray was notable for patchy diffuse infiltrate in left lung. In addition noted rhonchi and wheezing in right lung which may be secondary to aspiration during intubation. Patient febrile yesterday and tachycardic. Also noted to have a leukocytosis of 12.6 this a.m. after resolving yesterday. Chest x-ray from yesterday was notable for a new left basilar consolidation. Plan: Broaden antibiotics to IV cefepime. Was initially going to do Zosyn but patient has a penicillin allergy Sputum culture growing haemophilus influenza A, susceptible to cephalosporins. Will continue for now and change once patient is able to tolerate oral Qualifiers: Qualified Codes: J14 - Pneumonia due to hemophilus influenzae (4) Suicide attempt Status: Acute Assessment & Plan: Per family, it was reported that this may have been an intentional suicide attempt. On presentation to the ED, patient was unsure why as she had taken so many medications however it was difficult to get clear answers from her. Plan: Stabilize patient Once patient is AAOx3, can assess for suicidality Plan for social work consult once patient is awake (5) Recent cerebrovascular accident (CVA) Status: Acute Assessment & Plan: Patient has a history of recent CVA with left-sided weakness. CT head repeated in the ED showed no progression. There was interval evolution of right MCA infarct. Will assess for any deficits once patient is awake however unlikely to be acute at this time. Plan: Restart patient's DAPT regimen once able to tolerate oral (6) History of methamphetamine abuse Status: Chronic Assessment & Plan: Patient has a history of methamphetamine use. UDS in the ED was negative. Positive for cannabis. EMORY BERNAL DO 04/02/232049: Subjective Subjective/Events-last exam Remains intubated Weaning trial was unsuccessful Objective Exam General Appearance: Chronically ill, Other (Sedated on vent) Respiratory: Decreased Breath Sounds Assessment/Plan Assessment and Plan Assess & Plan/Chief Complaint Continue ventilator wean CLARIBEL PERSAUD MD, RESIDENT Apr 02, 2023 11:57 EMORY BERNAL DO Apr 02, 2023 20:50
[2023-04-02] MEDS: ENOXAPARIN 40 MG/0.4 ML SYRINGE SC SCH (12:36)
[2023-04-02] MEDS: CEFEPIME INJECTION 2,000 MG in NS (IVPB) 50 ML 50 ML IV SCH ×2 (12:37→20:09)
[2023-04-02] MEDS: inSUlin ASPART 1 UNIT/0.01 ML (PER UNIT) SC SCH ×3 (12:48→21:54)
[2023-04-02] MEDS: MIDAZOLAM DRIP PRE-MIX 100 ML IV SCH (12:53)
[2023-04-02 14:30] VITALS: BP 97/52
[2023-04-02 19:01] VITALS: BP 109/70
[2023-04-02 20:54] VITALS: BP 104/68
[2023-04-03] MEDS: NOREPINEPHRINE 8 MG/250 ML 250 ML IV SCH ×2 (01:12→18:13)
[2023-04-03] MEDS: ACETAMINOPHEN 325 MG/10.15 ML ORAL SOLN UDC PO PRN ×2 (01:24→15:40)
[2023-04-03] MEDS: RT-Ipratropium/Albuterol NEB 3 ML VIAL INH SCH ×5 (02:42→22:09)
[2023-04-03 02:43] VITALS: BP 131/83
[2023-04-03 03:06] LABS: ABG OXYGEN SATURATION 99 % (94-100); ABG PCO2 29 MMHG (35-45); ABG PH 7.51 (7.37-7.43); ABG PO2 83 MMHG (79-93); INSPIRED O2 25%; VENTILATOR YES
[2023-04-03] MEDS: CEFEPIME INJECTION 2,000 MG in NS (IVPB) 50 ML 50 ML IV SCH ×3 (03:41→20:30)
[2023-04-03 04:41] LABS: BASOPHILS % (AUTO) 0 % (0-10); EOSINOPHILS % (AUTO) 0 % (0-10); HEMATOCRIT 30 % (35-52); HEMOGLOBIN 9.6 g/dL (11.5-16.0); LYMPHOCYTES % (AUTO) 17 % (12-44); MEAN CORPUSCULAR HEMOGLOBIN 28 pg (25-34); MEAN CORPUSCULAR HGB CONC 32 g/dL (32-36); MEAN CORPUSCULAR VOLUME 87 fL (80-99); MEAN PLATELET VOLUME 10.1 fL (9.0-12.2); MONOCYTES # (AUTO) 1.1 10^3/uL (0.0-1.0); MONOCYTES % (AUTO) 9 % (0-12); NEUTROPHILS # (AUTO) 8.4 10^3/uL (1.8-7.8); NEUTROPHILS % (AUTO) 73 % (42-75); PLATELET COUNT 194 10^3/uL (130-400); WHITE BLOOD COUNT 11.6 10^3/uL (4.3-11.0)
[2023-04-03 06:03] LABS: BASOPHILS % (AUTO) 0 % (0-10); EOSINOPHILS % (AUTO) 0 % (0-10); HEMATOCRIT 35 % (35-52); HEMOGLOBIN 11.3 g/dL (11.5-16.0); LYMPHOCYTES # (AUTO) 2.4 10^3/uL (1.0-4.0); LYMPHOCYTES % (AUTO) 18 % (12-44); MEAN CORPUSCULAR HEMOGLOBIN 28 pg (25-34); MEAN CORPUSCULAR HGB CONC 33 g/dL (32-36); MEAN CORPUSCULAR VOLUME 86 fL (80-99); MEAN PLATELET VOLUME 9.8 fL (9.0-12.2); MONOCYTES # (AUTO) 1.3 10^3/uL (0.0-1.0); MONOCYTES % (AUTO) 10 % (0-12); NEUTROPHILS % (AUTO) 70 % (42-75); PLATELET COUNT 224 10^3/uL (130-400); WHITE BLOOD COUNT 12.9 10^3/uL (4.3-11.0)
[2023-04-03 06:04] LABS: CALCIUM 8.6 MG/DL (8.5-10.1); POTASSIUM 4.6 MMOL/L (3.6-5.0)
[2023-04-03 06:08] LABS: BILIRUBIN,TOTAL 0.5 MG/DL (0.1-1.0); PHOSPHORUS 3.6 MG/DL (2.3-4.7)
[2023-04-03 06:10] LABS: CREATININE SERUM 0.83 MG/DL (0.60-1.30)
[2023-04-03] MEDS: POTASSIUM CL 10MEQ/50ML IVPB 50 ML IV SCH (06:14)
[2023-04-03] MEDS: POTASSIUM CHLORIDE 20 MEQ TABLET PO SCH (06:18)
[2023-04-03] MEDS: inSUlin ASPART 1 UNIT/0.01 ML (PER UNIT) SC SCH ×4 (06:22→21:49)
[2023-04-03] MEDS: MAGNESIUM 1 GM/100 ML IVPB 100 ML IV SCH (06:22)
[2023-04-03 06:30] VITALS: BP 111/58
[2023-04-03] MEDS: PANTOPRAZOLE INJECTION 40 MG VIAL IV SCH (08:24)
--- NOTE | 2023-04-03 09:36 | Progress Note ---
CLARIBEL PERSAUD MD, RESIDENT 04/03/23 0936: Subjective HPI/CC On Admission Date Seen by Provider: Apr 03, 2023 Time Seen by Provider: 07:15 Chief complaint: Overdose on baclofen HPI: This is a 53-year-old female with polysubstance abuse history who presented after an overdose of baclofen. patient quickly declined requiring intubation to protect airway. Subjective/Events-last exam No acute overnight events. We will plan for sedation vacation today and monitor how patient does. No other concerns this morning. Review of Systems Unable to obtain as patient is intubated and sedated. Objective Exam Vital Signs Vital Signs Date Time Temp Pulse Resp B/P (MAP) Pulse Ox O2 Delivery O2 Flow Rate FiO2 04/03/23 09:00 110 15 100/70 (79) 98 Mechanical Ventilator 25.00 04/03/23 08:30 30 04/03/23 07:57 36.9 Capillary Refill : Less Than 3 Seconds General Appearance: No Apparent Distress HEENT: Normal ENT Inspection Neck: Normal Inspection, Supple, Other (Endotracheal tube and plan) Respiratory: Chest Non Tender, No Accessory Muscle Use, No Respiratory Distress, Other (Some congestion and rhonchi in the lungs bilaterally, worse on the left than the right) Cardiovascular: No Edema, No Murmur, Tachycardia Gastrointestinal: Normal Bowel Sounds, Non Tender, Soft Neurologic/Psychiatric: Other (Sedated) Skin: Normal Color, Warm/Dry Results/Procedures Lab Laboratory Tests 04/03/23 04:25 04/03/23 05:32 Patient resulted labs reviewed. Imaging: Reviewed Imaging Report Assessment/Plan Assessment and Plan Assess & Plan/Chief Complaint Baclofen overdose Diagnosis/Problems Diagnosis/Problems (1) Baclofen overdose Status: Acute Assessment & Plan: Admitted for reported baclofen overdose. Thought to have taken 780 mg total. Debated for airway protection given decreasing GCS on presentation to the ED. Plan: Continue mechanical ventilation Monitor on telemetry Continue monitoring off of Levophed Per poison control, reports symptoms with large overdoses can last several days Continue fluids, currently on LR D5 with 20 KCl at 100 mL/h Qualifiers: Qualified Codes: T42.8X2A - Poisoning by antiparkinsonism drugs and other central muscle-tone depressants, intentional self-harm, initial encounter (2) Endotracheally intubated Status: Acute Assessment & Plan: See above. Plan: Vent settings adjustments per eICU and RT. Continue propofol and Versed for sedation. wean as tolerated. do not use Precedex given patient did not tolerate this. Tube feeding started yesterday with goal to get to 40. Increase as tolerated. (3) Pneumonia Status: Acute Assessment & Plan: Chest x-ray was notable for patchy diffuse infiltrate in left lung. In addition noted rhonchi and wheezing in right lung which may be secondary to aspiration during intubation. Patient febrile yesterday and tachycardic. Also noted to have a leukocytosis of 12.6 this a.m. after resolving yesterday. Chest x-ray from yesterday was notable for a new left basilar consolidation. Plan: Broaden antibiotics to IV cefepime. Was initially going to do Zosyn but patient has a penicillin allergy Sputum culture growing haemophilus influenza A, susceptible to cephalosporins. Will continue for now and change once patient is able to tolerate oral Qualifiers: Qualified Codes: J14 - Pneumonia due to hemophilus influenzae (4) Hyperglycemia Status: Acute Assessment & Plan: Please secondary to fluids switch include D5. Plan: Switch to sliding scale insulin B due to poor control with scale A (5) Suicide attempt Status: Acute Assessment & Plan: Per family, it was reported that this may have been an intentional suicide attempt. On presentation to the ED, patient was unsure why as she had taken so many medications however it was difficult to get clear answers from her. Plan: Stabilize patient Once patient is AAOx3, can assess for suicidality Plan for social work consult once patient is awake (6) Recent cerebrovascular accident (CVA) Status: Acute Assessment & Plan: Patient has a history of recent CVA with left-sided weakness. CT head repeated in the ED showed no progression. There was interval evolution of right MCA infarct. Will assess for any deficits once patient is awake however unlikely to be acute at this time. Plan: Restart patient's DAPT regimen once able to tolerate oral (7) History of methamphetamine abuse Status: Chronic Assessment & Plan: Patient has a history of methamphetamine use. UDS in the ED was negative. Positive for cannabis. EMORY BERNAL DO 04/04/23 0540: Subjective Subjective/Events-last exam Patient maintained on vent SBT unsuccessful Objective Exam General Appearance: Chronically ill, Other (Sedated and intubated) Respiratory: Other (Some congestion and rhonchi in the lungs bilaterally, worse on the left than the right) Assessment/Plan Assessment and Plan Assess & Plan/Chief Complaint Continue vent managementI personally performed the vasquez portions of the visit, discussed case with resident and concur with resident documentation of history, physical exam, assessment and treatment plan unless otherwise noted. CLARIBEL PERSAUD MD, RESIDENT Apr 03, 2023 09:36 EMORY BERNAL DO Apr 04, 2023 05:40
[2023-04-03] MEDS: LACTATED RINGERS 1,000 ML 1,000 ML IV SCH (09:44)
[2023-04-03 10:36] VITALS: BP 113/79
--- NOTE | 2023-04-03 10:56 | Diagnostic Imaging Report ---
INDICATION: Respiratory failure, ventilatory management. Compared one-day prior. FINDINGS: ET tube mid thoracic trachea. OG and left PICC line stable. Bilateral infiltrates predominantly interstitial and showed slight improvement. There is no substantial pleural fluid, pneumothorax or adverse change. IMPRESSION: Bilateral infiltrates showed slight reduction in severity with stable support apparatus and no adverse change. Dictated by: Dictated on workstation # [id number]
[2023-04-03] MEDS: ENOXAPARIN 40 MG/0.4 ML SYRINGE SC SCH (11:33)
--- NOTE | 2023-04-03 11:56 | Tele-ICU Progress Note ---
Subjective Date Seen by a Provider: Apr 03, 2023 Time Seen by a Provider: 11:54 Subjective/Events-last exam (Tele-ICU Physician , Progress Note ) Service provided via interactive audio and video telecommunications [facility] s te to a patient admitted to ICU bed in [facility]. Patient is seen today due to persistent need of ICU care Available chart/ vitals / labs / Images reviewed Video assessment done using teleICU camera, rest of exam as per RN She is a 53-year-old female with past medical history of MCA stroke with left hemiparesis who was prescribed baclofen tablet 10 mg. From the day of her prescription she should have consumed about 12 tablets living 78 tablets in the bottle. She was found unresponsive and it was suspected that she might have consumed 78 pills of 10 mg of baclofen. Poison control was called and she was intubated and put on mechanical ventilation. Today the sedation was decreased and tried on a CPAP trial but she did not tolerate hence she is put up back on ventilator. Impression 1. Possible overdose of baclofen with a decrease in mental status 2. Acute hypoxic respiratory failure secondary to baclofen overdose 3. History of CVA. Recommendations 1. Continue current mechanical ventilatory settings and titrate sedation as needed 2. Hydrate patient 3. DVT prophylaxis 4. Continue IV antibiotics. Coordination of care with primary care physician and bedside consultants. I am remotely monitoring this patient from Tele icu station in [place]. I am unable to do the bedside exam, and history/physical and pertinent information is taken from other notes in the computer and bedside staff. Certain portions of this document may have been dictated utilizing voice recognition technology such as [employer]. Inherent to this technology, typograph ical and grammatical errors may exist. As much as I am diligent to identify and correct to these mistakes, some errors may remain in the document. Critical care time devoted to this patient today is approximately is-30 minutes- Sepsis Event Evaluation Height, Weight, BMI Height: 5'2.00" Weight: 130lbs. 0.0oz. 58.734998bb; 34.31 BMI Method:Stated Exam Exam Patient acknowledged, consented, and participated in this virtual visit which was conducted using real time audio/video Vital Signs Date Time Temp Pulse Resp B/P (MAP) Pulse Ox O2 Delivery O2 Flow Rate FiO2 04/03/23 11:38 94 Mechanical Ventilator 30 04/03/23 11:00 113 14 105/64 (74) 92 Mechanical Ventilator 25.00 04/03/23 10:00 111 16 118/64 (82) 97 Mechanical Ventilator 25.00 04/03/23 09:44 121 107/73 04/03/23 09:00 110 15 100/70 (79) 98 Mechanical Ventilator 25.00 04/03/23 08:30 94 Mechanical Ventilator 30 04/03/23 08:00 116 17 115/70 (87) 92 Mechanical Ventilator 25.00 04/03/23 07:57 36.9 04/03/23 07:00 108 22 122/70 (85) 94 Mechanical Ventilator 25.00 04/03/23 07:00 112 04/03/23 06:00 109/64 (79) 04/03/23 05:45 108 22 106/70 (80) 89 Mechanical Ventilator 25.00 04/03/23 05:30 110 20 126/75 (89) 91 Mechanical Ventilator 25.00 04/03/23 05:15 111 26 115/80 (91) 92 Mechanical Ventilator 25.00 04/03/23 05:05 109 125/74 04/03/23 05:00 125/74 (93) 04/03/23 04:45 107 27 105/63 (84) 91 Mechanical Ventilator 25.00 04/03/23 04:30 112 18 98/60 (73) 90 Mechanical Ventilator 25.00 04/03/23 04:15 112 19 101/60 (72) 90 Mechanical Ventilator 25.00 04/03/23 04:00 37.8 111 17 99/61 (75) 90 Mechanical Ventilator 25.00 04/03/23 04:00 92 Mechanical Ventilator 25 04/03/23 03:45 116 23 122/75 (96) 91 Mechanical Ventilator 25.00 04/03/23 03:30 117 32 128/78 (95) 91 Mechanical Ventilator 25.00 04/03/23 03:15 115 18 126/78 (96) 91 Mechanical Ventilator 25.00 04/03/23 03:00 115 14 120/76 (95) 92 Mechanical Ventilator 25.00 04/03/23 02:45 116 50 131/83 (99) 99 Mechanical Ventilator 25.00 04/03/23 02:43 115 17 96 25 04/03/23 02:30 117 14 118/82 (99) 91 Mechanical Ventilator 25.00 04/03/23 02:15 115/67 (80) 04/03/23 02:00 117 14 123/67 (82) 92 Mechanical Ventilator 25.00 04/03/23 01:55 38.7 04/03/23 01:45 38.7 118 14 125/73 (89) 92 Mechanical Ventilator 25.00 04/03/23 01:30 127/71 (90) 04/03/23 01:24 38.9 04/03/23 01:15 117/68 (86) 04/03/23 01:00 120/75 (93) 04/03/23 01:00 120 04/03/23 00:45 38.9 117/78 (90) 04/03/23 00:30 116 14 124/80 (90) 92 Mechanical Ventilator 25.00 04/03/23 00:22 93 Mechanical Ventilator 21 04/03/23 00:15 117 14 131/76 (99) 92 Mechanical Ventilator 25.00 04/03/23 00:00 38.0 124/73 (92) Mechanical Ventilator 25.00 04/02/23 23:45 118 14 139/73 (81) 92 Mechanical Ventilator 25.00 04/02/23 22:30 120 14 93 Mechanical Ventilator 25.00 04/02/23 22:15 117 14 93 Mechanical Ventilator 25.00 04/02/23 22:00 121 14 133/76 (95) 93 Mechanical Ventilator 25.00 04/02/23 21:55 116 124/73 04/02/23 21:45 115 21 92 Mechanical Ventilator 25.00 04/02/23 21:30 116 17 92 Mechanical Ventilator 25.00 04/02/23 21:15 120 14 94 Mechanical Ventilator 25.00 04/02/23 21:00 115 14 126/73 (90) 93 Mechanical Ventilator 25.00 04/02/23 20:54 114 14 92 25 04/02/23 20:30 Mechanical Ventilator 21 04/02/23 20:00 114 15 104/68 (80) 94 Mechanical Ventilator 25.00 04/02/23 19:55 36.3 04/02/23 19:01 115 19 94 21 04/02/23 19:00 117 16 109/70 (83) 93 Mechanical Ventilator 25.00 04/02/23 19:00 120 11/3/23 18:00 117 15 103/60 (80) 91 Mechanical Ventilator 21.00 04/02/23 17:46 113 109/66 04/02/23 17:00 117 15 109/66 (78) 92 Mechanical Ventilator 21.00 04/02/23 16:00 115 14 142/75 (100) 92 Mechanical Ventilator 21.00 04/02/23 16:00 Mechanical Ventilator 21 04/02/23 15:59 35.9 04/02/23 15:00 109 14 126/70 (92) 94 Mechanical Ventilator 21.00 04/02/23 14:30 111 14 93 21 04/02/23 14:00 113 31 103/72 (82) 92 Mechanical Ventilator 21.00 04/02/23 13:00 112 15 93/56 (79) 93 Mechanical Ventilator 21.00 04/02/23 12:53 113 14 97/52 04/02/23 12:45 119 04/02/23 12:34 112 116/74 04/02/23 12:00 117 14 127/70 (88) 96 Mechanical Ventilator 21.00 I & O 04/03/23 07:00 Intake Total 2580 ml Output Total 3900 ml Balance -1320 ml Height & Weight Height: 5'2.00" Weight: 130lbs. 0.0oz. 58.860421fv; 34.31 BMI Method:Stated General Appearance: No Apparent Distress HEENT: Normal ENT Inspection Neck: Normal Inspection, Supple, Other (Endotracheal tube and plan) Respiratory: Chest Non Tender, No Accessory Muscle Use, No Respiratory Dist ress, Other (Some congestion and rhonchi in the lungs bilaterally, worse on the left than the right) Cardiovascular: No Edema, No Murmur, Tachycardia Capillary Refill: Less Than 3 Seconds Gastrointestinal: normal bowel sounds, non tender, soft, abnormal bowel sounds, other (hypoactive BS) Extremity: No Pedal Edema Neurologic/Psychiatric: Other (Sedated) Skin: Normal Color, Warm/Dry Results Lab Laboratory Tests 04/02/23 05:20 04/03/23 04:25 04/03/23 05:32 Assessment/Plan Assessment/Plan as above Critical Care: Ventilator Management Time spent with patient (mins): 30 SMILEY SAUCEDA MD Apr 03, 2023 11:56
[2023-04-03 15:00] VITALS: BP 113/63
[2023-04-03 18:49] VITALS: BP 158/80
[2023-04-03] MEDS: MIDAZOLAM DRIP PRE-MIX 100 ML IV SCH (20:30)
[2023-04-03 22:09] VITALS: BP 148/68
[2023-04-04] MEDS: RT-Ipratropium/Albuterol NEB 3 ML VIAL INH SCH ×5 (02:46→22:14)
[2023-04-04 02:47] VITALS: BP 158/79
[2023-04-04] MEDS: CEFEPIME INJECTION 2,000 MG in NS (IVPB) 50 ML 50 ML IV SCH ×3 (03:29→20:34)
[2023-04-04 04:58] LABS: BASOPHILS % (AUTO) 0 % (0-10); EOSINOPHILS # (AUTO) 0.1 10^3/uL (0.0-0.3); EOSINOPHILS % (AUTO) 1 % (0-10); HEMATOCRIT 32 % (35-52); HEMOGLOBIN 10.4 g/dL (11.5-16.0); LYMPHOCYTES # (AUTO) 2.1 10^3/uL (1.0-4.0); LYMPHOCYTES % (AUTO) 19 % (12-44); MEAN CORPUSCULAR HEMOGLOBIN 28 pg (25-34); MEAN CORPUSCULAR HGB CONC 33 g/dL (32-36); MEAN CORPUSCULAR VOLUME 86 fL (80-99); MONOCYTES # (AUTO) 1.1 10^3/uL (0.0-1.0); MONOCYTES % (AUTO) 10 % (0-12); NEUTROPHILS # (AUTO) 7.3 10^3/uL (1.8-7.8); NEUTROPHILS % (AUTO) 69 % (42-75); PLATELET COUNT 257 10^3/uL (130-400); WHITE BLOOD COUNT 10.7 10^3/uL (4.3-11.0)
[2023-04-04 05:07] LABS: ALBUMIN 2.9 GM/DL (3.2-4.5); POTASSIUM 4.1 MMOL/L (3.6-5.0)
[2023-04-04 05:09] LABS: CALCIUM 8.8 MG/DL (8.5-10.1)
[2023-04-04 05:10] LABS: TOTAL PROTEIN 5.7 GM/DL (6.4-8.2)
[2023-04-04 05:12] LABS: BILIRUBIN,TOTAL 0.4 MG/DL (0.1-1.0)
[2023-04-04 05:13] LABS: PHOSPHORUS 3.1 MG/DL (2.3-4.7)
[2023-04-04 05:14] LABS: CREATININE SERUM 0.74 MG/DL (0.60-1.30)
[2023-04-04 05:17] LABS: MAGNESIUM 1.7 MG/DL (1.6-2.4)
[2023-04-04] MEDS: MAGNESIUM 1 GM/100 ML IVPB 100 ML IV SCH ×4 (05:55→07:59)
[2023-04-04] MEDS: POTASSIUM CL 10MEQ/50ML IVPB 50 ML IV SCH (05:55)
[2023-04-04] MEDS: POTASSIUM CHLORIDE 20 MEQ TABLET PO SCH (05:55)
[2023-04-04] MEDS ORDERED: MAGNESIUM 1 GM/100 ML IVPB 400 ML IV ONE (06:07)
--- NOTE | 2023-04-04 06:10 | Progress Note - Hospitalist ---
Subjective HPI/CC On Admission Date Seen by Provider: Apr 04, 2023 Time Seen by Provider: 11:00 Chief complaint: Overdose on baclofen HPI: This is a 53-year-old female with polysubstance abuse history who presented after an overdose of baclofen. patient quickly declined requiring intubation to protect airway. Subjective/Events-last exam Still intubated SBT today Reviewed meds and labs Antibiotics maintained for ventilator associated pneumonia Objective Exam Vital Signs Vital Signs Date Time Temp Pulse Resp B/P (MAP) Pulse Ox O2 Delivery O2 Flow Rate FiO2 04/04/23 15:00 108 36 131/82 (101) 91 High Flow N/C 8.00 04/04/23 12:17 36.0 04/04/23 10:55 40 Capillary Refill : Less Than 3 Seconds General Appearance: Chronically ill, Other ( sedated and on ventilator) Respiratory: Lungs Clear Results/Procedures Lab Laboratory Tests 04/04/23 04:37 Patient resulted labs reviewed. Imaging: Reviewed Imaging Report Assessment/Plan Assessment and Plan Assess & Plan/Chief Complaint (1) Baclofen overdose Status: Acute Assessment & Plan: Admitted for reported baclofen overdose. Thought to have taken 780 mg total. Debated for airway protection given decreasing GCS on presentation to the ED. Plan: Continue mechanical ventilation Monitor on telemetry Continue monitoring off of Levophed Per poison control, reports symptoms with large overdoses can last several days Continue fluids, currently on LR D5 with 20 KCl at 100 mL/h Qualifiers: Qualified Codes: T42.8X2A - Poisoning by antiparkinsonism drugs and other central muscle-tone depressants, intentional self-harm, initial encounter (2) Endotracheally intubated Status: Acute Assessment & Plan: See above. Plan: Vent settings adjustments per eICU and RT. Continue propofol and Versed for sedation. wean as tolerated. do not use Precedex given patient did not tolerate this. Tube feeding started yesterday with goal to get to 40. Increase as tolerated. (3) Pneumonia Status: Acute Assessment & Plan: Chest x-ray was notable for patchy diffuse infiltrate in left lung. In addition noted rhonchi and wheezing in right lung which may be secondary to aspiration during intubation. Patient febrile yesterday and tachycardic. Also noted to have a leukocytosis of 12.6 this a.m. after resolving yesterday. Chest x-ray from yesterday was notable for a new left basilar consolidation. Plan: Broaden antibiotics to IV cefepime. Was initially going to do Zosyn but patient has a penicillin allergy Sputum culture growing haemophilus influenza A, susceptible to cephalosporins. Will continue for now and change once patient is able to tolerate oral Qualifiers: Qualified Codes: J14 - Pneumonia due to hemophilus influenzae (4) Hyperglycemia Status: Acute Assessment & Plan: Please secondary to fluids switch include D5. Plan: Switch to sliding scale insulin B due to poor control with scale A (5) Suicide attempt Status: Acute Assessment & Plan: Per family, it was reported that this may have been an intentional suicide attempt. On presentation to the ED, patient was unsure why as she had taken so many medications however it was difficult to get clear answers from her. Plan: Stabilize patient Once patient is AAOx3, can assess for suicidality Plan for social work consult once patient is awake (6) Recent cerebrovascular accident (CVA) Status: Acute Assessment & Plan: Patient has a history of recent CVA with left-sided weakness. CT head repeated in the ED showed no progression. There was interval evolution of right MCA infarct. Will assess for any deficits once patient is awake however unlikely to be acute at this time. Plan: Restart patient's DAPT regimen once able to tolerate oral (7) History of methamphetamine abuse Status: Chronic Assessment & Plan: Patient has a history of methamphetamine use. UDS in the ED was negative. Positive for cannabis. Critical Care Ventilator Management EMORY BERNAL DO Apr 04, 2023 06:10
[2023-04-04] MEDS: inSUlin ASPART 1 UNIT/0.01 ML (PER UNIT) SC SCH ×4 (06:11→20:37)
[2023-04-04 07:02] VITALS: BP 142/75
[2023-04-04 07:25] LABS: ABG BASE EXCESS 4.2 MMOL/L (-2.5-2.5); ABG OXYGEN SATURATION 99 % (94-100); ABG PCO2 35 MMHG (35-45); ABG PO2 85 MMHG (79-93); ABG TCO2 28.4 MMOL/L (21.0-31.0)
[2023-04-04 07:26] LABS: INSPIRED O2 30%; VENTILATOR YES
[2023-04-04] MEDS: LACTATED RINGERS 1,000 ML 1,000 ML IV SCH (07:41)
[2023-04-04] MEDS: PANTOPRAZOLE INJECTION 40 MG VIAL IV SCH (07:59)
--- NOTE | 2023-04-04 09:03 | Tele-ICU Progress Note ---
Subjective Date Seen by a Provider: Apr 04, 2023 Subjective/Events-last exam This virtual visit was conducted using real time audio/video. Thank you for asking us to see this patient for respiratory insufficiency due to Baclofen OD, UDS+ for Kristi. Recent events: Did well overnight PE: VSS. O2 sat 92% on AC14/500/30%/+5. HEENT: No obvious masses, adenopathy or JVD. Chest: wheezes on auscultation. CV: RRR S1 S2 No murmur or added sounds. Abd: Non-tender. Bowel sounds Y. : Unremarkable. [place] [employer]/psychiatric: Grossly intact. No obvious focal findings. Extremities: No edema. Capillary refill < 3 seconds. Skin: unremarkable. Results: Elevated WCC 12.6, BG 264. Decreased Hb 11.4. B.5/35/85 0n 30%. CXR: improved Available chart/ vitals / labs / images reviewed. Video assessment done using teleICU camera, rest of exam as per RN. A/P: Respiratory insufficiency: For SBT this AM. Monitor for increasing oxygenation needs. Critical Care: critically ill patient. Cont. Areli., TF, reglan. abx, PRN pressors. Discussed with RN Angy. Asked RN to reach out to eICU if any questions or concerns later. Time spent with patient/coordination of care with other health professionals (mins): 15 Sepsis Event Evaluation Height, Weight, BMI Height: 5'2.00" Weight: 130lbs. 0.0oz. 58.710520ip; 30.35 BMI Method:Stated Exam Exam Patient acknowledged, consented, and participated in this virtual visit which was conducted using real time audio/video Vital Signs Date Time Temp Pulse Resp B/P (MAP) Pulse Ox O2 Delivery O2 Flow Rate FiO2 04/04/23 08:09 96 Mechanical Ventilator 30 04/04/23 08:00 117 18 127/63 (103) 96 Mechanical Ventilator 30.00 04/04/23 08:00 37.5 04/04/23 07:59 114 159/62 04/04/23 07:02 108 14 97 30 04/04/23 07:00 108 14 142/75 (90) 97 Mechanical Ventilator 30.00 04/04/23 07:00 111 04/04/23 06:00 112 14 129/69 (89) 96 Mechanical Ventilator 30.00 04/04/23 05:15 114 14 150/69 (96) 95 Mechanical Ventilator 30.00 04/04/23 04:00 97 Mechanical Ventilator 30 04/04/23 04:00 115 14 144/56 (85) 96 Mechanical Ventilator 30.00 04/04/23 03:06 123 163/71 04/04/23 03:00 123 14 163/71 (101) 96 Mechanical Ventilator 30.00 04/04/23 02:47 116 14 96 30 04/04/23 02:00 122 14 164/73 (103) 96 Mechanical Ventilator 30.00 04/04/23 01:00 112 18 153/76 (101) 92 Mechanical Ventilator 30.00 04/04/23 00:06 112 04/04/23 00:00 96 Mechanical Ventilator 30 04/04/23 00:00 112 15 142/61 (88) 95 Mechanical Ventilator 30.00 04/03/23 23:00 118 19 135/66 (89) 95 Mechanical Ventilator 30.00 04/03/23 22:09 115 14 96 30 04/03/23 22:00 122 14 148/68 (94) 96 Mechanical Ventilator 30.00 04/03/23 21:00 112 14 163/69 (100) 96 Mechanical Ventilator 30.00 04/03/23 20:30 110 14 139/88 04/03/23 20:27 110 139/88 04/03/23 20:05 94 Mechanical Ventilator 30 04/03/23 20:00 36.2 124 13 141/98 (112) 95 Mechanical Ventilator 30.00 04/03/23 19:13 113 04/03/23 19:00 122 14 165/84 (111) 97 Mechanical Ventilator 30.00 04/03/23 18:49 114 14 96 30 04/03/23 18:16 37.2 Mechanical Ventilator 30.00 04/03/23 18:00 118 14 157/71 (105) 96 Mechanical Ventilator 25.00 04/03/23 17:00 120 14 82/43 (53) 97 Mechanical Ventilator 25.00 04/03/23 16:30 38.2 04/03/23 16:30 38.2 04/03/23 16:27 129 127/59 04/03/23 16:00 129 14 127/59 (87) 96 Mechanical Ventilator 25.00 04/03/23 16:00 35.9 04/03/23 15:53 96 Mechanical Ventilator 30 04/03/23 15:40 38.0 04/03/23 15:37 38.0 04/03/23 15:00 117 14 96 30 04/03/23 15:00 116 14 113/63 (83) 96 Mechanical Ventilator 25.00 04/03/23 14:00 122 14 113/62 (83) 94 Mechanical Ventilator 25.00 04/03/23 13:00 129 23 110/65 (79) 91 Mechanical Ventilator 25.00 04/03/23 12:41 119 04/03/23 12:00 110 16 97/62 (74) 94 Mechanical Ventilator 25.00 04/03/23 12:00 37.2 04/03/23 11:38 94 Mechanical Ventilator 30 04/03/23 11:00 113 14 105/64 (74) 92 Mechanical Ventilator 25.00 04/03/23 10:36 123 16 96 30 04/03/23 10:00 111 16 118/64 (82) 97 Mechanical Ventilator 25.00 04/03/23 09:44 121 107/73 I & O 04/04/23 07:00 Intake Total 1320 ml Output Total 3275 ml Balance -1955 ml Height & Weight Height: 5'2.00" Weight: 130lbs. 0.0oz. 58.113266iy; 30.35 BMI Method:Stated General Appearance: Chronically ill, Other (Sedated and intubated) HEENT: Normal ENT Inspection Neck: Normal Inspection, Supple, Other (Endotracheal tube and plan) Respiratory: Other (Some congestion and rhonchi in the lungs bilaterally, worse on the left than the right) Cardiovascular: No Edema, No Murmur, Tachycardia Capillary Refill: Less Than 3 Seconds Gastrointestinal: normal bowel sounds, non tender, soft, abnormal bowel sounds, other (hypoactive BS) Extremity: No Pedal Edema Neurologic/Psychiatric: Other (Sedated) Skin: Normal Color, Warm/Dry Results Lab Laboratory Tests 04/03/23 04:25 04/03/23 05:32 04/04/23 04:37 Assessment/Plan Assessment/Plan See free text. Critical Care: Ventilator Management MARIE PAZ MD Apr 04, 2023 09:03
--- NOTE | 2023-04-04 09:46 | Diagnostic Imaging Report ---
INDICATION: Mechanical ventilation for respiratory failure, ICU management. TECHNIQUE: Single view chest 3:52 AM CORRELATION STUDY: 04/03/2023 FINDINGS: Endotracheal tube, left-sided central line and gastric tube remain in place. Heart size and mediastinum are generally stable. Bilateral perihilar and basilar opacities persisting but overall slightly improved. Probable small effusions. IMPRESSION: 1. Stable support lines and tubes. 2. Bilateral pulmonary opacities do persist but overall slightly improved from previous. Dictated by: Dictated on workstation # [id number]
[2023-04-04 10:35] LABS: ABG OXYGEN SATURATION 98 % (94-100); ABG PCO2 37 MMHG (35-45); ABG PH 7.48 (7.37-7.43); ABG PO2 87 MMHG (79-93); ABG TCO2 28.7 MMOL/L (21.0-31.0)
[2023-04-04 10:36] LABS: INSPIRED O2 30%; VENTILATOR YES
[2023-04-04 10:55] VITALS: BP 126/62
[2023-04-04] MEDS: ENOXAPARIN 40 MG/0.4 ML SYRINGE SC SCH (12:05)
[2023-04-04] MEDS: NOREPINEPHRINE 8 MG/250 ML 250 ML IV SCH (12:12)
[2023-04-05] MEDS: RT-Ipratropium/Albuterol NEB 3 ML VIAL INH SCH ×3 (03:11→12:31)
[2023-04-05 04:21] LABS: BASOPHILS # (AUTO) 0.1 10^3/uL (0.0-0.1); BASOPHILS % (AUTO) 1 % (0-10); EOSINOPHILS # (AUTO) 0.2 10^3/uL (0.0-0.3); EOSINOPHILS % (AUTO) 2 % (0-10); HEMATOCRIT 35 % (35-52); HEMOGLOBIN 11.4 g/dL (11.5-16.0); LYMPHOCYTES # (AUTO) 1.7 10^3/uL (1.0-4.0); LYMPHOCYTES % (AUTO) 16 % (12-44); MEAN CORPUSCULAR HEMOGLOBIN 28 pg (25-34); MEAN CORPUSCULAR HGB CONC 33 g/dL (32-36); MEAN CORPUSCULAR VOLUME 85 fL (80-99); MEAN PLATELET VOLUME 9.7 fL (9.0-12.2); MONOCYTES # (AUTO) 1.2 10^3/uL (0.0-1.0); MONOCYTES % (AUTO) 12 % (0-12); NEUTROPHILS # (AUTO) 7.1 10^3/uL (1.8-7.8); NEUTROPHILS % (AUTO) 69 % (42-75); PLATELET COUNT 250 10^3/uL (130-400); WHITE BLOOD COUNT 10.3 10^3/uL (4.3-11.0)
[2023-04-05] MEDS: CEFEPIME INJECTION 2,000 MG in NS (IVPB) 50 ML 50 ML IV SCH (04:31)
[2023-04-05 04:34] LABS: ALBUMIN 3.3 GM/DL (3.2-4.5); POTASSIUM 3.5 MMOL/L (3.6-5.0)
[2023-04-05 04:37] LABS: TOTAL PROTEIN 6.7 GM/DL (6.4-8.2)
[2023-04-05] MEDS: POTASSIUM CHLORIDE 20 MEQ TABLET PO SCH (04:37)
[2023-04-05] MEDS: POTASSIUM CL 10MEQ/50ML IVPB 50 ML IV SCH ×4 (04:37→07:14)
[2023-04-05] MEDS: MAGNESIUM 1 GM/100 ML IVPB 100 ML IV SCH (04:37)
[2023-04-05] MEDS: inSUlin ASPART 1 UNIT/0.01 ML (PER UNIT) SC SCH ×4 (04:38→19:51)
[2023-04-05 04:39] LABS: BILIRUBIN,TOTAL 0.4 MG/DL (0.1-1.0)
[2023-04-05 04:40] LABS: CREATININE SERUM 0.64 MG/DL (0.60-1.30); PHOSPHORUS 3.3 MG/DL (2.3-4.7)
[2023-04-05 04:43] LABS: MAGNESIUM 1.9 MG/DL (1.6-2.4)
[2023-04-05] MEDS ORDERED: POTASSIUM CL 10MEQ/50ML IVPB 200 ML IV ONE (04:55)
[2023-04-05] MEDS: PANTOPRAZOLE INJECTION 40 MG VIAL IV SCH (08:26)
--- NOTE | 2023-04-05 08:57 | Progress Note ---
CLARIBEL PERSAUD MD, RESIDENT 04/05/23 0857: Subjective Subjective/Events-last exam Patient successfully extubated yesterday. Is on 6 L high flow nasal cannula this morning. She is AAOx3. Wanting to go home this morning however we discussed that since she has been recently extubated, will have to observe for a little bit longer in order to have a safe discharge plan. She otherwise feels well and has no concerns today. Review of Systems General: No Chills Pulmonary: No Dyspnea, No Cough Cardiovascular: No: Chest Pain, Palpitations, Edema Gastrointestinal: No: Nausea, Vomiting, Diarrhea, Constipation Genitourinary: No Dysuria Neurological: No: Weakness Objective Exam Last Set of Vital Signs Vital Signs Date Time Temp Pulse Resp B/P (MAP) Pulse Ox O2 Delivery O2 Flow Rate FiO2 04/05/23 08:00 35.9 04/05/23 08:00 96 High Flow N/C 6.00 04/05/23 08:00 100 30 04/04/23 10:55 40 Capillary Refill : Less Than 3 Seconds I&O Intake and Output 04/05/23 00:00 Intake Total 2140 ml Output Total 2800 ml Balance -660 ml Intake Oral 0 ml IV Total 1600 ml Tube Feeding 480 ml Other 60 ml Output Urine Total 2800 ml # Bowel Movements 3 General: Alert, Oriented X3 HEENT: Atraumatic, EOMI Neck: Supple Lungs: Clear to Auscultation, Normal Air Movement Heart: Regular Rate, No Murmurs Abdomen: Normal Bowel Sounds, Soft, No Tenderness Extremities: No Edema Skin: No Rashes Results/Procedures Lab Laboratory Tests 04/04/23 10:18: Arterial Blood pH 7.48H, Arterial Blood Partial Pressure CO2 37, Arterial Blood Partial Pressure O2 87, Arterial Blood HCO3 28H, Arterial Blood Total CO2 28.7, Arterial Blood Oxygen Saturation 98, Arterial Blood Base Excess 4.0H, Blood Gas Ventilator Setting YES, Blood Gas Inspired Oxygen 30% 04/04/23 12:00: Glucometer 182H 04/04/23 16:36: Glucometer 103 04/05/23 04:15: White Blood Count 10.3, Red Blood Count 4.08, Hemoglobin 11.4L, Hematocrit 35, Mean Corpuscular Volume 85, Mean Corpuscular Hemoglobin 28, Mean Corpuscular Hemoglobin Concent 33, Red Cell Distribution Width 13.4, Platelet Count 250, Mean Platelet Volume 9.7, Immature Granulocyte % (Auto) 1, Neutrophils (%) (Auto) 69, Lymphocytes (%) (Auto) 16, Monocytes (%) (Auto) 12, Eosinophils (%) (Auto) 2, Basophils (%) (Auto) 1, Neutrophils # (Auto) 7.1, Lymphocytes # (Auto) 1.7, Monocytes # (Auto) 1.2H, Eosinophils # (Auto) 0.2, Basophils # (Auto) 0.1, Immature Granulocyte # (Auto) 0.1, Sodium Level 141, Potassium Level 3.5L, Chloride Level 105, Carbon Dioxide Level 23, Anion Gap 13, Blood Urea Nitrogen 12, Creatinine 0.64, Estimat Glomerular Filtration Rate 107, BUN/Creatinine Ratio 19, Glucose Level 115H, Calcium Level 9.0, Corrected Calcium 9.6, Phosphorus Level 3.3, Magnesium Level 1.9, Total Bilirubin 0.4, Aspartate Amino Transf (AST/SGOT) 35H, Alanine Aminotransferase (ALT/SGPT) 41, Alkaline Phosphatase 127, Total Protein 6.7, Albumin 3.3 Microbiology 03/29/23 Gram Stain - Final, Complete 03/29/23 Sputum Culture - Final, Complete Haemophilus influenza See Comments Usual upper respiratory ila Assessment/Plan Assessment/Plan Admission Dx Baclofen overdose Admission Status: Inpatient Order (span 2 midnights) Reason for Inpatient Admission: Baclofen overdose, requiring intubation (1) Baclofen overdose Status: Acute Assessment & Plan: Admitted for reported baclofen overdose. Thought to have taken 780 mg total. Intubated for airway protection given decreasing GCS on presentation to the ED. Plan: Patient successfully extubated yesterday. Is on 6 L high flow nasal cannula this morning. Propofol and Versed discontinued, continue to observe patient for any agitation Continue monitoring on telemetry Discontinuing fluids as patient is tolerating oral intake Swallow eval recommending SP 6 with thin liquids, fully upright and alert for p.o. intake, small bites and sips only. Speech will continue to follow. We will transfer patient to fourth floor today Qualifiers: Qualified Codes: T42.8X2A - Poisoning by antiparkinsonism drugs and other central muscle-tone depressants, intentional self-harm, initial encounter (2) Pneumonia Status: Resolved Assessment & Plan: Chest x-ray was notable for patchy diffuse infiltrate in left lung. In addition noted rhonchi and wheezing in right lung which may be secondary to aspiration during intubation. Patient febrile yesterday and tachycardic. Also noted to have a leukocytosis of 12.6 this a.m. after resolving yesterday. Chest x-ray from yesterday was notable for a new left basilar consolidation. Plan: We will discontinue IV cefepime today given that patient has been on antibiotics for 8 days Wean oxygen as tolerated Qualifiers: Qualified Codes: J14 - Pneumonia due to hemophilus influenzae (3) Suicide attempt Status: Acute Assessment & Plan: Per family, it was reported that this may have been an intentional suicide attempt. On presentation to the ED, patient was unsure why as she had taken so many medications however it was difficult to get clear answers from her. Plan: Consulting psych and social work for evaluation on dispo plan given that there is a question if this was a suicide attempt (4) History of methamphetamine abuse Status: Chronic Assessment & Plan: Patient has a history of methamphetamine use. UDS in the ED was negative. Positive for cannabis. (5) Recent cerebrovascular accident (CVA) Status: Chronic Assessment & Plan: Patient has a history of recent CVA with left-sided weakness. CT head repeated in the ED showed no progression. There was interval evolution of right MCA infarct. Will assess for any deficits once patient is awake however unlikely to be acute at this time. Plan: Restarting Plavix and aspirin today FRANCISCO JAVIER BLANK MD 04/05/23 1243: Supervisory-Addendum Brief Supervisory Addendum I personally performed the vasquez portions of the visit, discussed case with resident and concur with resident documentation of history, physical exam, assessment and treatment plan unless otherwise noted. Pt states SO is getting her brace and cane which she needs for ambulation due to history of stroke. She has left leg weakness and minimal use of left arm after stroke 09/2022. CLARIBEL PERSAUD MD, RESIDENT Apr 05, 2023 08:57 FRANCISCO JAVIER BLANK MD Apr 05, 2023 12:43
--- NOTE | 2023-04-05 09:01 | Tele-ICU Progress Note ---
Subjective Date Seen by a Provider: Apr 05, 2023 Time Seen by a Provider: 09:01 Subjective/Events-last exam (Tele-ICU Physician , Progress Note ) Service provided via interactive audio and video telecommunications E-CARE s te to a patient admitted to ICU bed in [facility]. Patient is seen today due to persistent need of ICU care Available chart/ vitals / labs / Images reviewed Video assessment done using teleICU camera, rest of exam as per RN She is a 53-year-old female with past medical history of MCA stroke with left hemiparesis who was prescribed baclofen tablet 10 mg. From the day of her prescription she should have consumed about 12 tablets living 78 tablets in the bottle. She was found unresponsive and it was suspected that she might have consumed 78 pills of 10 mg of baclofen. Poison control was called and she was intubated and put on mechanical ventilation. Today the sedation was decreased and tried on a CPAP trial but she did not tolerate hence she is put up back on ventilator. 04/05/2023.SHE WAS EXTUBATED FROM VENT ON 04/04/23. ON 6LHFN/C NO DISTRESS Impression 1. Possible overdose of baclofen with a decrease in mental status improving but still confused 2. Acute hypoxic respiratory failure secondary to baclofen overdose improving 3. History of CVA. 4. H.inflenza pneumonia Recommendations 1. Continue supplemental oxygen with hfn/c 2. Hydrate patient 3. DVT prophylaxis 4. Continue IV antibiotics. Coordination of care with primary care physician and bedside consultants. I am remotely monitoring this patient from Tele icu station in [place]. I am unable to do the bedside exam, and history/physical and pertinent information is taken from other notes in the computer and bedside staff. Certain portions of this document may have been dictated utilizing voice recognition technology such as [employer] Inherent to this technology, typographical and grammatical errors may exist. As much as I am diligent to identify and correct to these mistakes, some errors may remain in the document. Critical care time devoted to this patient today is approximately is-20 minutes- Sepsis Event Evaluation Height, Weight, BMI Height: 5'2.00" Weight: 130lbs. 0.0oz. [id number]; 30.35 BMI Method:Stated Exam Exam Patient acknowledged, consented, and participated in this virtual visit which was conducted using real time audio/video Vital Signs Date Time Temp Pulse Resp B/P (MAP) Pulse Ox O2 Delivery O2 Flow Rate FiO2 04/05/23 08:00 35.9 04/05/23 08:00 96 High Flow N/C 6.00 04/05/23 08:00 100 30 108/54 (72) 97 High Flow N/C 6.00 04/05/23 07:25 105 04/05/23 07:09 High Flow N/C 6.00 04/05/23 07:00 106 20 103/71 (82) 97 High Flow N/C 6.00 04/05/23 06:00 101 23 100/66 (79) 97 High Flow N/C 6.00 04/05/23 05:00 112 18 104/55 (75) 90 High Flow N/C 6.00 04/05/23 04:00 96 High Flow N/C 8.00 04/05/23 04:00 121 16 97/74 (86) 88 High Flow N/C 6.00 04/05/23 03:11 High Flow N/C 6.00 04/05/23 03:00 109 117/81 (96) 93 High Flow N/C 6.00 04/05/23 02:00 110 21 103/66 (76) 94 High Flow N/C 6.00 04/05/23 01:00 103 04/05/23 01:00 103 9 121/70 (81) 99 High Flow N/C 6.00 04/05/23 00:48 High Flow N/C 6.00 04/05/23 00:06 36.0 Room Air 04/05/23 00:00 104 39 93/72 (80) 99 High Flow N/C 6.00 04/04/23 23:59 96 High Flow N/C 8.00 04/04/23 23:00 112 23 130/77 (108) 95 High Flow N/C 6.00 04/04/23 22:22 High Flow N/C 6.00 04/04/23 22:16 High Flow N/C 6.00 04/04/23 22:00 112 32 124/83 (100) 99 High Flow N/C 8.00 04/04/23 21:00 105 33 107/53 (71) 90 High Flow N/C 8.00 04/04/23 20:00 117 17 114/54 (72) 95 High Flow N/C 8.00 04/04/23 20:00 35.9 High Flow N/C 8.00 04/04/23 20:00 96 High Flow N/C 8.00 04/04/23 19:06 High Flow N/C 8.00 04/04/23 19:00 116 04/04/23 19:00 116 117/82 (90) High Flow N/C 8.00 04/04/23 18:00 122 33 134/114 (115) 92 High Flow N/C 8.00 04/04/23 17:00 115 14 133/71 (91) 97 High Flow N/C 8.00 04/04/23 16:00 106 118/74 (84) High Flow N/C 8.00 04/04/23 16:00 96 High Flow N/C 8.00 04/04/23 15:00 108 36 131/82 (101) 91 High Flow N/C 8.00 04/04/23 14:00 109 24 107/80 (90) 90 High Flow N/C 8.00 04/04/23 13:00 120 93/75 (82) 92 High Flow N/C 8.00 04/04/23 12:41 108 04/04/23 12:17 36.0 04/04/23 12:03 96 High Flow N/C 8.00 04/04/23 12:00 114 22 128/66 (83) 96 High Flow N/C 8.00 04/04/23 11:19 High Flow N/C 8.00 04/04/23 11:00 118 20 125/73 (101) 95 Mechanical Ventilator 30.00 04/04/23 10:55 108 31 96 40 04/04/23 10:00 112 18 124/72 (95) 96 Mechanical Ventilator 30.00 I & O 04/05/23 06:59 Intake Total 1630 ml Output Total 2250 ml Balance -620 ml Height & Weight Height: 5'2.00" Weight: 130lbs. 0.0oz. [id number]; 30.35 BMI Method:Stated General Appearance: Chronically ill, Other ( sedated and on ventilator) HEENT: Normal ENT Inspection Neck: Normal Inspection, Supple, Other (Endotracheal tube and plan) Respiratory: Lungs Clear Cardiovascular: No Edema, No Murmur, Tachycardia Capillary Refill: Less Than 3 Seconds Gastrointestinal: normal bowel sounds, non tender, soft, abnormal bowel sounds, other (hypoactive BS) Extremity: No Pedal Edema Neurologic/Psychiatric: Other (Sedated) Skin: Normal Color, Warm/Dry Results Lab Laboratory Tests 04/04/23 04:37 04/05/23 04:15 Assessment/Plan Assessment/Plan as above Critical Care: Critically Ill Patient Time spent with patient (mins): 20 SMILEY SAUCEDA MD Apr 05, 2023 09:01
--- NOTE | 2023-04-05 09:55 | ST Dysphagia Evaluation ---
Speech Evaluation-General Medical Diagnosis Baclofen Overdose Onset Date: Mar 29, 2023 Therapy Diagnosis Therapy Diagnosis: Mild Oropharyngeal Dysphagia Precautions Precautions: Fall, Pressure Ulcer, Aspiration Precautions/Isolations: Aspiration, Fall Prevention, Standard Precautions, Pressure Ulcer Referral Referring Physician: Dr. Branham Reason for Referral: Evaluation/Treatment Medical History Section, Coronary Stent, Gallbladder, Orthopedic, Chronic Bronchitis, Coronary Artery Disease, Heart Attack, Hypertension, Stroke, Renal Failure, Arthritis, Back Injury, Anxiety Reviewed History: Yes Speech PLF/Current-Dysphagia Prior Level of Function The patient consumed a regular consistency diet with thin liquids prior to admission. The patient is known to the clinician from outpatient speech pathology dysphagia services (discharged). During outpatient visits, the clinician focused on safe swallowing strategies to reduce aspiration risks with thin liquids (small sips). Subjective The patient was lying in bed, awake and alert, upon entrance to her room by the clinician. The patient greeted the clinician appropriately and was agreeable to participation in the clinical bedside swallowing evaluation. The patient was positioned upright for safe swallowing. Cognitive Status Patient Orientation: Person, Place, Time, Situation Oral Motor Skills Dentition: Edentalous Ability to Follow Directions: Good Oral Expression Ability: Mild Impairment Voice Voice Phonatory-Based Quality: Breathy Voice Pitch: Normal Voice Loudness: Mildly Soft/Quiet Face Facial Symmetry: Asymmetrical Oral-Facial Assessment Oral-Facial Dentition: Normal Labial Seal Description: Droops Left, Weak Smile: Droops Left Lingual Protrusion: Normal Lingual ROM: Normal Lingual Strength: Normal Volitional Dry Swallow: Yes Voluntary Cough: Yes Can Clear Throat Volitionally: Yes Dysphagia Evaluation Consistencies Presented: Regular, Thin Liquid, Pureed Oral Phase: Left Pocketing Funct. Velo/Pharyngeal Symptom: Cough After Swallow (Dry, solid consistency.) The patient was provided thin liquid via teaspoon, thin liquid via cup edge, thin liquid via straw, puree, and solid (nat cracker). The patient self-fed consistencies following the clinician opening containers (applesauce). Overt s/s of suspected aspiration were not displayed with thin liquids (single drinks) or puree. One rigorous cough was displayed following mastication of a solid consistency. Per patient, "Some of that fell back there." Mild left oral pocke ting was visualized which the patient was able to clear with lingual sweep following a verbal cue from the clinician. Dietary Recommendations: Mechanical Soft (SB6) Liquid Recommendations: Thin Recommendations: - SB6 with thin liquids, as tolerated. - Fully upright and alert for P.O. intake. - Small bites and sips, only. - Slow rate of P.O. intake. - Assess left oral cavity for pocketing throughout and following meals. - Place pills in puree for administration. - Monitor for s/s of suspected aspiration with P.O. intake. If demonstrated, please contact speech pathology. - Speech pathology to monitor the patient for diet tolerance and appropriate upgrade. The results and recommendations were discussed with the patient and the patient's RN, Kalyan, immediately following completion of the evaluation. The patient is able to teach-back the recommendations and is familiar with the recommendations from outpatient therapy services. The recommendations were placed on the in-room white board. Speech Short Term Goals Short Term Goals Short Term Goals 1. The patient and staff will display safe swallowing strategies with 90% accuracy, independently. Time Frame-STG: Three Days. Speech Fdc Goals Care Specialist Goals 1. The patient will tolerate the least restrictive diet consistency without s/s of suspected aspiration for safe swallowing and to meet daily nutritional needs. Time Frame: One Week. Speech-Plan Treatment Plan Speech Therapy Treatment Plan: Continue Plan of Care Treatment Duration: Apr 12, 2023 Frequency: 2 times per week Estimated Hrs Per Day: .25 hour per day Rehab Potential: Guarded Pt/Family Agrees to Plan: Yes Safety Risks/Education Teaching Recipient: Patient Teaching Methods: Discussion Response to Teaching: Verbalize Understanding, Return Demonstration Education Topics Provided: Results, Recommendation, Plan of Care, Safe Swallowing Strategies Time Speech Therapy Time In: 08:50 Speech Therapy Time Out: 09:14 DATE: Apr 05, 2023 Total Billed Time: 24 Billed Treatment Time 1, ALEXEY GARDNER [facility] Apr 05, 2023 09:55
[2023-04-05 10:29] VITALS: BP 97/68
[2023-04-05] MEDS ORDERED: VITAMIN D2 1.25 MG (50,000 UNITS) CAP PO SCH (11:00)
[2023-04-05] MEDS: LACTATED RINGERS 1,000 ML 1,000 ML IV SCH (11:34)
[2023-04-05] MEDS ORDERED: RT-Ipratropium/Albuterol NEB 3 ML VIAL INH PRN (12:45)
[2023-04-05 12:53] VITALS: BP 135/68
[2023-04-05] MEDS: ENOXAPARIN 40 MG/0.4 ML SYRINGE SC SCH (13:12)
--- NOTE | 2023-04-05 13:58 | Physical Therapy Evaluation ---
PT Evaluation-General Medical Diagnosis Admission Date Mar 29, 2023 at 12:32 Medical Diagnosis: Baclofen Overdose Onset Date: Mar 29, 2023 Therapy Diagnosis Therapy Diagnosis: impaired mobility Height/Weight Height (Feet): 5 Height (Inches): 2.00 Weight (Pounds): 130 Weight (Ounces): 0.0 Precautions Precautions/Isolations: Aspiration, Fall Prevention, Standard Precautions, Pressure Ulcer Weight Bear Status Right Lower Extremity: Right Full Weight Bearing Left Lower Extremity: Left Partial Weight Bearing History of stroke s/p left-sided deficits, ambulates with a cane, brace LLE Referral Reason for Referral: Evaluation/Treatment Medical History Pertinent Medical History: CVA Additional Medical History polysubstance abuse Current History Pt has a history of recent CVA with significant loss of left upper and lower extremity function. Pt was admitted to the ER 03/30 after overdosing on baclofen. Pt was ventilated for 6 days for airway protection. Reviewed History: Yes Social History Home: Single Level Current Living Status: Significant Other Prior Prior Level of Function SCALE: Activities may be completed with or without assistive devices. 5-Rbrpzeiskz-uduvwjs completes the activity by him/herself with no assistance from a helper. 5-Set-up or Clean-up Assistance-helper sets up or cleans up; patient completes activity. [place] assists only prior to or following the activity. 4-Supervision or Touching Assistance-helper provides verbal cues and/or touching/steadying and/or contact guard assistance as patient completes activity. Assistance may be provided throughout the activity or intermittently. 3-Partial/Moderate Assistance-helper does LESS THAN HALF the effort. [place] lifts, holds or supports trunk or limbs, but provides less than half the effort. 2-Substantial/Maximal Assistance-helper does MORE THAN HALF the effort. [place] lifts or holds trunk or limbs and provides more than half the effort. 9-Diwtxyzig-pckwmr does ALL the effort. Patient does none of the effort to complete the activity. Or, the assistance of 2 or more helpers is required for the patient to complete the activity. If activity was not attempted, code reason: 7-Patient Refused. 9-Not Applicable-not attempted and the patient did not perform the activity before the current illness, exacerbation or injury. 10-Not Attempted due to Environmental Limitations-(lack of equipment, weather restraints, etc.). 88-Not Attempted due to Medical Conditions or Safety Concerns. Bed Mobility: 4 Transfers (B,C,W/C): 4 Gait: 4 Wheelchair Mobility: 4 Indoor Mobility (Ambulation): Needed Some Help Prior Device Use: AFO, manual wheelchair Pt known in therapy from prior treatment for CVA. Pt recently discharged from outpatient therapy due to plateau in physical function. PT Evaluation-Current Subjective Pt reports she has lost mobility since stopping her outpatient physical therapy. She did not keep up with her exercise and spent alot of time sleeping. Objective Patient Orientation: Person, Place, Situation Attachments: Oxygen ROM/Strength ROM Lower Extremities flacid (L) UE Strength Lower Extremities (L) LE unable to MMT secondary to tone Sensory Vision: Functional Hearing: Functional Transfers Roll Left to Right (QC): 4 Sit to Lying (QC): 4 Lying to Sitting/Side of Bed(Q: 3 Sit to Stand (QC): 3 Chair/Iwy-bq-Dbscg Xfer(QC): 3 Toilet Transfer (QC): 3 Pt requires physical assist to move left LE and needs lifting to come to stand. Gait Does the Patient Walk?: Yes Mode of Locomotion: Both Anticipated Mode of Locomotion: Both Walk 10 feet (QC): 3 Distance: 10 Gait Assistive Device: Walker Loy Comments/Gait Description Moderate assist to ambulate 10 feet with a loy walker. Physical assist to maintain balance and perform weight shift. Verbal cues for sequencing. Balance Sitting Static: Poor Sitting Dynamic: Poor Standing Static: Poor Standing Dynamic: Poor Assessment/Needs Pt has poor balance in sitting and in standing. She requires physical assist to maintain upright at edge of bed and standing. She has declined in function since last seeing her walk in therapy 2-3 weeks ago. She will benefit from a short stent of therapy to improve functional balance and short distance ambulation. Rehab Potential: Fair PT Developer Designer Goals Developer Designer Goals PT Developer Designer Goals Time Frame: Apr 07, 2023 Roll Left & Right (QC): 4 Sit to Lying (QC): 4 Lying-Sitting on Side/Bed(QC): 4 Sit to Stand (QC): 4 Chair/Cyk-jn-Dgutz Xfer(QC): 4 Toilet Transfer (QC): 4 Walk 10 feet (QC): 4 PT Plan Problem List Problem List: Balance, Gait, Transfer, Bed Mobility Treatment/Plan Treatment Plan: Continue Plan of Care Treatment Duration: Apr 07, 2023 Frequency: 5 times per week Estimated Hrs Per Day: .25 hour per day Patient and/or Family Agrees t: Yes Safety Risks/Education Patient Education: Gait Training, Transfer Techniques Time Time In: 1310 Time Out: 1330 DATE: Apr 05, 2023 Total Billed Treatment Time: 20 Total Billed Treatment visit, evaluation moderate complexity 20 minutes ROMAIN MAZARIEGOS PT Apr 05, 2023 13:58
[2023-04-05 16:38] VITALS: BP 129/87
[2023-04-05 20:14] VITALS: BP 132/77
[2023-04-05] MEDS ORDERED: BENZONATATE 100 MG CAPSULE PO PRN (23:30)
[2023-04-05] MEDS ORDERED: BENZONATATE 100 MG CAPSULE PO ONE (23:38)
[2023-04-05 23:42] VITALS: BP 123/86
[2023-04-06 03:06] VITALS: BP 125/67
[2023-04-06 05:14] LABS: BASOPHILS % (AUTO) 0 % (0-10); EOSINOPHILS # (AUTO) 0.1 10^3/uL (0.0-0.3); EOSINOPHILS % (AUTO) 1 % (0-10); HEMATOCRIT 35 % (35-52); HEMOGLOBIN 11.4 g/dL (11.5-16.0); LYMPHOCYTES # (AUTO) 2.3 10^3/uL (1.0-4.0); LYMPHOCYTES % (AUTO) 23 % (12-44); MEAN CORPUSCULAR HEMOGLOBIN 28 pg (25-34); MEAN CORPUSCULAR HGB CONC 33 g/dL (32-36); MEAN CORPUSCULAR VOLUME 85 fL (80-99); MEAN PLATELET VOLUME 9.7 fL (9.0-12.2); MONOCYTES # (AUTO) 0.9 10^3/uL (0.0-1.0); MONOCYTES % (AUTO) 9 % (0-12); NEUTROPHILS # (AUTO) 6.4 10^3/uL (1.8-7.8); NEUTROPHILS % (AUTO) 66 % (42-75); PLATELET COUNT 318 10^3/uL (130-400); WHITE BLOOD COUNT 9.8 10^3/uL (4.3-11.0)
[2023-04-06 05:22] LABS: ALBUMIN 3.3 GM/DL (3.2-4.5); POTASSIUM 3.5 MMOL/L (3.6-5.0)
[2023-04-06 05:23] LABS: CALCIUM 9.2 MG/DL (8.5-10.1)
[2023-04-06 05:25] LABS: TOTAL PROTEIN 6.7 GM/DL (6.4-8.2)
[2023-04-06 05:26] LABS: BILIRUBIN,TOTAL 0.3 MG/DL (0.1-1.0)
[2023-04-06 05:28] LABS: CREATININE SERUM 0.63 MG/DL (0.60-1.30); PHOSPHORUS 3.1 MG/DL (2.3-4.7)
[2023-04-06 05:31] LABS: MAGNESIUM 1.8 MG/DL (1.6-2.4)
[2023-04-06] MEDS: inSUlin ASPART 1 UNIT/0.01 ML (PER UNIT) SC SCH ×2 (05:42→11:33)
[2023-04-06] MEDS: MAGNESIUM 1 GM/100 ML IVPB 100 ML IV SCH ×3 (05:43→06:40)
[2023-04-06] MEDS: POTASSIUM CL 10MEQ/50ML IVPB 50 ML IV SCH (05:43)
[2023-04-06] MEDS: POTASSIUM CHLORIDE 20 MEQ TABLET PO SCH (06:06)
--- NOTE | 2023-04-06 06:54 | Progress Note ---
CLARIBEL PERSAUD MD, RESIDENT 04/06/23 0654: Subjective Subjective/Events-last exam Patient doing well today is saturating well and breathing well on room air. She would like to go home if possible. She understands that she would benefit from further therapy but feels she has good support at home to take care of her. Later in the morning, she was expressing some midsternal chest pressure that had been ongoing for about an hour. Chest pain is nonradiating and not relieved with Protonix. Review of Systems General: No Chills, No Fatigue; Appetite HEENT: No Head Aches Pulmonary: No Dyspnea, No Cough Cardiovascular: Chest Pain; No: Palpitations, Edema Gastrointestinal: No: Nausea, Vomiting, Diarrhea, Constipation Genitourinary: No Dysuria Objective Exam Last Set of Vital Signs Vital Signs Date Time Temp Pulse Resp B/P (MAP) Pulse Ox O2 Delivery O2 Flow Rate FiO2 04/06/23 03:06 36.0 70 20 125/67 (86) 95 Room Air 04/05/23 19:29 6.00 04/04/23 10:55 40 Capillary Refill : Less Than 3 Seconds I&O Intake and Output 04/06/23 00:00 Intake Total 940 ml Output Total 600 ml Balance 340 ml Intake Oral 940 ml Output Urine Total 600 ml # Urine Diapers 1 # Bowel Movements 9 General: Alert, Oriented X3 HEENT: Atraumatic Lungs: Clear to Auscultation, Normal Air Movement Heart: No Murmurs, Other (Mildly irregular rate) Abdomen: Normal Bowel Sounds, Soft, No Tenderness Extremities: No Edema Skin: No Rashes Neuro: Normal Speech Results/Procedures Lab Laboratory Tests 04/05/23 19:48: Glucometer 122H 04/06/23 05:03: White Blood Count 9.8, Red Blood Count 4.11, Hemoglobin 11.4L, Hematocrit 35, Mean Corpuscular Volume 85, Mean Corpuscular Hemoglobin 28, Mean Corpuscular Hemoglobin Concent 33, Red Cell Distribution Width 13.2, Platelet Count 318, Mean Platelet Volume 9.7, Immature Granulocyte % (Auto) 1, Neutrophils (%) (Auto) 66, Lymphocytes (%) (Auto) 23, Monocytes (%) (Auto) 9, Eosinophils (%) (Auto) 1, Basophils (%) (Auto) 0, Neutrophils # (Auto) 6.4, Lymphocytes # (Auto) 2.3, Monocytes # (Auto) 0.9, Eosinophils # (Auto) 0.1, Basophils # (Auto) 0.0, Immature Granulocyte # (Auto) 0.1, Sodium Level 141, Potassium Level 3.5L, Chloride Level 107, Carbon Dioxide Level 22, Anion Gap 12, Blood Urea Nitrogen 14, Creatinine 0.63, Estimat Glomerular Filtration Rate 107, BUN/Creatinine Ratio 22, Glucose Level 131H, Calcium Level 9.2, Corrected Calcium 9.8, Phosphorus Level 3.1, Magnesium Level 1.8, Total Bilirubin 0.3, Aspartate Amino Transf (AST/SGOT) 23, Alanine Aminotransferase (ALT/SGPT) 34, Alkaline Phosphatase 114, Total Protein 6.7, Albumin 3.3 Microbiology 03/29/23 Gram Stain - Final, Complete 03/29/23 Sputum Culture - Final, Complete Haemophilus influenza See Comments Usual upper respiratory ila Assessment/Plan Assessment/Plan Admission Status: Inpatient Order (span 2 midnights) (1) Baclofen overdose Status: Resolved Assessment & Plan: Admitted for reported baclofen overdose. Thought to have taken 780 mg total. Intubated for airway protection given decreasing GCS on presentation to the ED. patient extubated on 04/04/2023. Plan: Patient saturating well on room air Continue monitoring on telemetry Swallow eval recommending SP 6 with thin liquids, fully upright and alert for p.o. intake, small bites and sips only. Speech will continue to follow Patient does not want to be discharged to rehab or half-way facility. Will discharge home with home health. Qualifiers: Qualified Codes: T42.8X2A - Poisoning by antiparkinsonism drugs and other central muscle-tone depressants, intentional self-harm, initial encounter (2) Suicide attempt Status: Resolved Assessment & Plan: Per family, it was reported that this may have been an intentional suicide attempt. On presentation to the ED, patient was unsure why as she had taken so many medications however it was difficult to get clear answers from her. Plan: Mental health screening yesterday was negative for any acute concerns, patient will have a safety plan on discharge (3) History of methamphetamine abuse Status: Chronic Assessment & Plan: Patient has a history of methamphetamine use. UDS in the ED was negative. Positive for cannabis. (4) Recent cerebrovascular accident (CVA) Status: Chronic Assessment & Plan: Patient has a history of recent CVA with left-sided weakness. CT head repeated in the ED showed no progression. There was interval evolution of right MCA infarct. Will assess for any deficits once patient is awake however unlikely to be acute at this time. Plan: Restarting Plavix and aspirin today (5) Chest pain Status: Acute Assessment & Plan: Noting acute onset of chest pressure this morning, midsternal, nonradiating. EKG notable for occasional PVCs which may be contributing to her chest pressure. Troponin otherwise negative. Okay to discharge still today. Qualifiers: Qualified Codes: R07.9 - Chest pain, unspecified FRANCISCO JAVIER BLANK MD 04/06/23 1144: Supervisory-Addendum Brief Supervisory Addendum I personally performed the vasquez portions of the visit, discussed case with resident and concur with resident documentation of history, physical exam, assessment and treatment plan unless otherwise noted. CLARIBEL PERSAUD MD, RESIDENT Apr 06, 2023 06:54 FRANCISCO JAVIER BLANK MD Apr 06, 2023 11:44
[2023-04-06] MEDS ORDERED: POTASSIUM CHLORIDE 20 MEQ TABLET PO NR ×2 (07:00→09:00)
[2023-04-06 07:08] VITALS: BP 112/72
[2023-04-06] MEDS: PANTOPRAZOLE INJECTION 40 MG VIAL IV SCH (08:35)
[2023-04-06] MEDS ORDERED: BENZONATATE 100 MG CAPSULE PO SCH (09:00)
[2023-04-06] MEDS ORDERED: ASPIRIN enteric coated 81MG TABLET PO SCH (09:00)
[2023-04-06] MEDS ORDERED: CLOPIDOGREL 75 MG TABLET PO SCH (09:00)
[2023-04-06 11:15] VITALS: BP 114/75
--- NOTE | 2023-04-06 11:46 | Discharge Summary ---
Discharge Summary Hospital Course Problems/Diagnosis: (1) Baclofen overdose Status: Resolved Resolution Date/Time: 04/06/23 @ 11:37 Assessment & Plan: Admitted for reported baclofen overdose. Thought to have taken 780 mg total. Intubated for airway protection given decreasing GCS on presentation to the ED. patient extubated on 04/04/2023. Plan: Patient saturating well on room air Continue monitoring on telemetry Swallow eval recommending SP 6 with thin liquids, fully upright and alert for p.o. intake, small bites and sips only. Speech will continue to follow Patient does not want to be discharged to rehab or detention facility. Will discharge home with home health. Qualifiers: Qualified Codes: T42.8X2A - Poisoning by antiparkinsonism drugs and other central muscle-tone depressants, intentional self-harm, initial encounter (2) Suicide attempt Status: Resolved Resolution Date/Time: 04/06/23 @ 11:37 Assessment & Plan: Per family, it was reported that this may have been an intentional suicide attempt. On presentation to the ED, patient was unsure why as she had taken so many medications however it was difficult to get clear answers from her. Plan: Mental health screening yesterday was negative for any acute concerns, patient will have a safety plan on discharge (3) History of methamphetamine abuse Status: Chronic Assessment & Plan: Patient has a history of methamphetamine use. UDS in the ED was negative. Positive for cannabis. (4) Recent cerebrovascular accident (CVA) Status: Chronic Assessment & Plan: Patient has a history of recent CVA with left-sided weakness. CT head repeated in the ED showed no progression. There was interval evolution of right MCA infarct. Will assess for any deficits once patient is awake however unlikely to be acute at this time. Plan: Restarting Plavix and aspirin today (5) Chest pain Status: Acute Assessment & Plan: Noting acute onset of chest pressure this morning, midsternal, nonradiating. EKG notable for occasional PVCs which may be contributing to her chest pressure. Troponin otherwise negative. Okay to discharge still today. Qualifiers: Qualified Codes: R07.9 - Chest pain, unspecified Hospital Course Date of Admission: Mar 29, 2023 at 12:32 Admission Diagnosis : [facility] [place] Date [facility]: 04/06/23 Discharge Diagnosis: Baclofen overdose Hospital Course: Patient is a 53-year-old female with a past medical history of prior MCA stroke with left-sided hemiparesis, polysubstance abuse, hypertension who presented to the ED with baclofen overdose. It had been presumed that patient had overdosed with 78 pills totaling 780 mg of baclofen. On presentation to the ED she was difficult to arouse and eventually required intubation for airway protection per poison control recommendations. She was transferred to the ICU for intubation management and required propofol and Versed for sedation. It was also noted that she had a pneumonia which was treated adequately with IV cefepime. On 04/04/2023, patient was successfully extubated and placed on high flow nasal cannula. She was taken off of sedation and eventually transferred down to the fourth floor for monitoring. A mental health screening was completed as it was unsure if this was a possible suicide attempt. Patient will be sent home with a safety plan per their recommendations. In addition physical therapy evaluated patient who noted that she would benefit from short rehab stay however patient declined. We will send patient home with home health services. Labs and Pending Lab Test: Laboratory Tests 04/05/23 19:48: Glucometer 122H 04/06/23 05:03: White Blood Count 9.8, Red Blood Count 4.11, Hemoglobin 11.4L, Hematocrit 35, Mean Corpuscular Volume 85, Mean Corpuscular Hemoglobin 28, Mean Corpuscular Hemoglobin Concent 33, Red Cell Distribution Width 13.2, Platelet Count 318, Mean Platelet Volume 9.7, Immature Granulocyte % (Auto) 1, Neutrophils (%) (Auto) 66, Lymphocytes (%) (Auto) 23, Monocytes (%) (Auto) 9, Eosinophils (%) (Auto) 1, Basophils (%) (Auto) 0, Neutrophils # (Auto) 6.4, Lymphocytes # (Auto) 2.3, Monocytes # (Auto) 0.9, Eosinophils # (Auto) 0.1, Basophils # (Auto) 0.0, Immature Granulocyte # (Auto) 0.1, Sodium Level 141, Potassium Level 3.5L, Chloride Level 107, Carbon Dioxide Level 22, Anion Gap 12, Blood Urea Nitrogen 14, Creatinine 0.63, Estimat Glomerular Filtration Rate 107, BUN/Creatinine Ratio 22, Glucose Level 131H, Calcium Level 9.2, Corrected Calcium 9.8, Phosphorus Level 3.1, Magnesium Level 1.8, Total Bilirubin 0.3, Aspartate Amino Transf (AST/SGOT) 23, Alanine Aminotransferase (ALT/SGPT) 34, Alkaline Phosphatase 114, Total Protein 6.7, Albumin 3.3 04/06/23 10:38: Troponin I < 0.028 04/06/23 11:10: Glucometer 188H Microbiology 03/29/23 Gram Stain - Final, Complete 03/29/23 Sputum Culture - Final, Complete Haemophilus influenza See Comments Usual upper respiratory ila Home Meds Active Reported Clopidogrel (Clopidogrel Bisulfate) 75 Mg Tablet 75 Mg PO DAILY Vitamin D2 (Ergocalciferol (Vitamin D2)) 1,250 Mcg (87484 Unit) Capsule 1,250 Mcg PO WEEK Hydroxyzine HCl 25 Mg Tablet 25 Mg PO TID PRN Duloxetine HCl 60 Mg Capsule.dr 60 Mg PO DAILY Atorvastatin Calcium 80 Mg Tablet 80 Mg PO DAILY Aspirin EC (Aspirin) 81 Mg Tablet.dr 81 Mg PO DAILY Neurontin (Gabapentin) 300 Mg Capsule 300 Mg PO HS Baclofen 10 Mg Tablet 10 Mg PO TID PRN Assessment/Pt DC Instructions Please see electronic discharge instructions given to patient. Discharge Diet: No Restrictions Activity as Tolerated: Yes Discharge Physical Examination Allergies: Coded Allergies: Penicillins (Verified Allergy, Mild, 03/29/23) amitriptyline (Verified Allergy, Unknown, 03/29/23) General Appearance: No Apparent Distress HEENT: PERRL/EOMI, Normal ENT Inspection Respiratory: Chest Non Tender, Lungs Clear, Normal Breath Sounds, No Accessory Muscle Use, No Respiratory Distress Cardiovascular: No Murmur, Normal Peripheral Pulses, Other (Occasionally irregular secondary to PVCs) Gastrointestinal: Normal Bowel Sounds, Non Tender, Soft Extremity: Non Tender, No Pedal Edema Skin: Normal Color, Warm/Dry Neurologic/Psychiatric: Alert, Oriented x3 CLARIBEL PERSAUD MD, RESIDENT Apr 06, 2023 11:46
--- NOTE | 2023-04-06 11:48 | Discharge Summary ---
CLARIBEL PERSAUD MD, RESIDENT 04/06/23 1148: Discharge Summary Reconcile Patient Problems Problems Reviewed?: Yes Instructions for Patient Via [facility], Assessment/Instructions Patient has a history of MCA stroke with left-sided hemiparesis. Had a prolonged hospital stay with intubation and was mainly bedridden during hospitalization. Would benefit from physical therapy services at home. Physician to follow Patient: [facility] Discharge Diet for Home: No Restrictions Hospital Course Date of Admission: Mar 29, 2023 at 12:32 Admission Diagnosis : Family Physician/Provider: [place] Date of Discharge: 04/06/23 Discharge Diagnosis: Baclofen overdose Hospital Course: Patient is a 53-year-old female with a past medical history of prior MCA stroke with left-sided hemiparesis, polysubstance abuse, hypertension who presented to the ED with baclofen overdose. It had been presumed that patient had overdosed with 78 pills totaling 780 mg of baclofen. On presentation to the ED she was difficult to arouse and eventually required intubation for airway protection per poison control recommendations. She was transferred to the ICU for intubation management and required propofol and Versed for sedation. It was also noted that she had a pneumonia which was treated adequately with IV cefepime. On 04/04/2023, patient was successfully extubated and placed on high flow nasal cannula. She was taken off of sedation and eventually transferred down to the fourth floor for monitoring. A mental health screening was completed as it was unsure if this was a possible suicide attempt. Patient will be sent home with a safety plan per their recommendations. In addition physical therapy evaluated patient who noted that she would benefit from short rehab stay however patient declined. We will send patient home with home health services. Labs and Pending Lab Test: Laboratory Tests 04/05/23 19:48: Glucometer 122H 04/06/23 05:03: White Blood Count 9.8, Red Blood Count 4.11, Hemoglobin 11.4L, Hematocrit 35, Mean Corpuscular Volume 85, Mean Corpuscular Hemoglobin 28, Mean Corpuscular Hemoglobin Concent 33, Red Cell Distribution Width 13.2, Platelet Count 318, Mean Platelet Volume 9.7, Immature Granulocyte % (Auto) 1, Neutrophils (%) (Auto) 66, Lymphocytes (%) (Auto) 23, Monocytes (%) (Auto) 9, Eosinophils (%) (Auto) 1, Basophils (%) (Auto) 0, Neutrophils # (Auto) 6.4, Lymphocytes # (Auto) 2.3, Monocytes # (Auto) 0.9, Eosinophils # (Auto) 0.1, Basophils # (Auto) 0.0, Immature Granulocyte # (Auto) 0.1, Sodium Level 141, Potassium Level 3.5L, Chloride Level 107, Carbon Dioxide Level 22, Anion Gap 12, Blood Urea Nitrogen 14, Creatinine 0.63, Estimat Glomerular Filtration Rate 107, BUN/Creatinine Ratio 22, Glucose Level 131H, Calcium Level 9.2, Corrected Calcium 9.8, Phosphorus Level 3.1, Magnesium Level 1.8, Total Bilirubin 0.3, Aspartate Amino Transf (AST/SGOT) 23, Alanine Aminotransferase (ALT/SGPT) 34, Alkaline Phosph atase 114, Total Protein 6.7, Albumin 3.3 04/06/23 10:38: Troponin I < 0.028 04/06/23 11:10: Glucometer 188H Microbiology 03/29/23 Gram Stain - Final, Complete 03/29/23 Sputum Culture - Final, Complete Haemophilus influenza See Comments Usual upper respiratory ila Home Meds Active Reported Clopidogrel (Clopidogrel Bisulfate) 75 Mg Tablet 75 Mg PO DAILY Vitamin D2 (Ergocalciferol (Vitamin D2)) 1,250 Mcg (53177 Unit) Capsule 1,250 Mcg PO WEEK Hydroxyzine HCl 25 Mg Tablet 25 Mg PO TID PRN Duloxetine HCl 60 Mg Capsule.dr 60 Mg PO DAILY Atorvastatin Calcium 80 Mg Tablet 80 Mg PO DAILY Aspirin EC (Aspirin) 81 Mg Tablet.dr 81 Mg PO DAILY Neurontin (Gabapentin) 300 Mg Capsule 300 Mg PO HS Baclofen 10 Mg Tablet 10 Mg PO TID PRN Patient Allergies: Coded Allergies: Penicillins (Verified Allergy, Mild, 03/29/23) amitriptyline (Verified Allergy, Unknown, 03/29/23) Height (Feet): 5 Height (Inches): 2.00 Weight (Pounds): 130 Weight (Ounces): 0.0 Home Health Need/Face to Face Date of Face to Face: Apr 06, 2023 Clinical Findings: Generalized weakness and fatigue, Non or partial weight bearing I have seen Pt [id number]: Yes Discharged To: Home Diagnosis/Conditions: History of stroke with left-sided hemiparesis, polysubstance abuse, hypertension Patient is Homebound due to: Bharathi fall risk due to instabilty, Non-weight bearing Homebound Status Due to the above stated illness, injury or surgical procedure (medical condition or diagnosis) and associated clinical findings, the patient is homebound because of his/her inability to leave home except with aid of a supportive device and/or person AND leaving the home requires a considerable and taxing effort or is medically contraindicated. Pt req the following assistanc: Aid of another person, Walker, Wheelchair Home Health Nursing Orders Home Health Services Order: Physical Therapy-Evaluate & Treat Home Health Infusion Therapy Line Start Date: Mar 30, 2023 Certify Stmt I certify that this patient is under my care and that I, a nurse practitioner or a physician; a trust manager assistant working with me, had a face to face encounter that - meets the physician face to face encounter requirements with this patient as dated. Discharge Physical Exam General: Alert, Oriented X3 HEENT: Atraumatic, EOMI Lungs: Clear to Auscultation, Normal Air Movement Heart: No Murmurs, Other (Occasionally irregular secondary to PVCs) Abdomen: Normal Bowel Sounds, Soft, No Tenderness Extremities: No Edema Skin: No Rashes Neuro: Normal Speech Psych/Mental Status: Mental Status NL FRANCISCO JAVIER BLANK MD 04/06/23 1150: Supervisory-Addendum Brief Supervisory Addendum I personally performed the vasquez portions of the visit, discussed case with resident and concur with resident documentation of history, physical exam, assessment and treatment plan unless otherwise noted. CLARIBEL PERSAUD MD, RESIDENT Apr 06, 2023 11:48 FRANCISCO JAVIER BLANK MD Apr 06, 2023 11:50
[2023-04-06] MEDS: ENOXAPARIN 40 MG/0.4 ML SYRINGE SC SCH (12:42)
--- NOTE | 2023-04-06 15:33 | Occupational Therapy Eval ---
OT Evaluation-General/PLF Medical Diagnosis Admission Date Mar 29, 2023 at 12:32 Medical Diagnosis: Baclofen Overdose Onset Date: Mar 29, 2023 Therapy Diagnosis Therapy Diagnosis: LEFT side weakness Height/Weight Height (Feet): 5 Height (Inches): 2.00 Weight (Pounds): 130 Weight (Ounces): 0.0 Precautions Precautions/Isolations: Fall Prevention, Standard Precautions Referral Referral Reason: Evaluation/Treatment Medical History Pertinent Medical History: CVA Current History OLD CVA, patient reports accidentally overdose of sleeping medication. Reviewed History: Yes Social History Home: Single Level Current Living Status: Significant Other ADL-Prior Level of Function SCALE: Activities may be completed with or without assistive devices. 1-[id number]-[id number] completes the activity by him/herself with no assistance f rom a helper. 5-Set-up or Clean-up Assistance-helper sets up or cleans up; patient completes activity. [place] assists only prior to or following the activity. 4-Supervision or Touching Assistance-helper provides verbal cues and/or touching/steadying and/or contact guard assistance as patient completes activity. Assistance may be provided throughout the activity or intermittently. 3-Partial/Moderate Assistance-helper does LESS THAN HALF the effort. [place] lifts, holds or supports trunk or limbs, but provides less than half the effort. 2-Substantial/Maximal Assistance-helper does MORE THAN HALF the effort. [place] lifts or holds trunk or limbs and provides more than half the effort. 8-[id number]-[id number] does ALL the effort. Patient does none of the effort to complete the activity. Or, the assistance of 2 or more helpers is required for the patient to complete the activity. If activity was not attempted, code reason: 7-Patient Refused. 9-Not Applicable-not attempted and the patient did not perform the activity before the current illness, exacerbation or injury. 10-Not Attempted due to Environmental Limitations-(lack of equipment, weather restraints, etc.). 88-Not Attempted due to Medical Conditions or Safety Concerns. Self Care: Needed Some Help Functional Cognition: Needed Some Help DME/Equipment: Bath Chair, Bedside Commode Drive Self: No OT Current Status Subjective Agreeable to therapy, insists to go home Mental Status/Objective Patient Orientation: Person, Place, Time, Situation Current Upper Extremity ROM LUE impaired, RUE WFLS Upper Extremity Coordination LUE impaired, RUE WFLS Upper Extremity Sensation LUE impaired, RUE WFLS Upper Extremity Strength LUE impaired, RUE WFLS ADL-Treatment Eating (QC): 5 Oral Hygiene (QC): 5 (sitting) Shower/Bathe Self (QC): 7 Upper Body Dressing (QC): 7 Lower Body Dressing (QC): 2 On/Off Footwear (QC): 2 Toileting Hygiene (QC): 2 (INCONT BM on arrival) Education OT Patient Education: Correct positioning, Exercise program, Modified ADL techniques, Progress toward Goal/Update tx plan, Purpose of tx/functional activities, Reviewed precautions, Rehab process, Safety issues, Transfer techniques, Use of adapted equipment Teaching Recipient: Patient Teaching Methods: Demonstration, Discussion Response to Teaching: Verbalize Understanding, Reinforcement Needed OT Fork Lift Technician Goals Fpc Goals 1=Demonstrate adherence to instructed precautions during ADL tasks. 2=Patient will verbalize/demonstrate understanding of assistive devices/ modifications for ADL. 3=Patient will improve strength/tolerance for activity to enable patient to perform ADL's. OT Education/Plan Problem List/Assessment Assessment: Decreased Activ Tolerance, Decreased Safety Aware, Decreased UE Strength, Impaired Coordination, Impaired Funct Balance, Impaired Self-Care Skills, Restricted Funct UE ROM Discharge Recommendations Plan/Recommendations: Continue POC Therapy Discharge Recommendati: Post Acute OT Treatment Plan/Plan of Care Treatment,Training & Education: Yes Patient would benefit from OT for education, treatment and training to promote independence in ADL's, mobility, safety and/or upper extremity function for ADL's. Plan of Care: ADL Retraining, Functional Mobility, Group Exercise/Act as Ind, UE Funct Exercise/Act, UE Neuromus Re-Ed/Coord Treatment Duration: Apr 09, 2023 Frequency: 3 times per week (3-5 times per week) Estimated Hrs Per Day: .25 hour per day Agreement: Yes Rehab Potential: Fair Time Start Time: 13:00 Stop Time: 13:20 DATE: Apr 06, 2023 Total Time Billed (hr/min): 20 Billed Treatment Time EVM 20 min JIN COX OT Apr 06, 2023 15:33
[2023-04-07] MEDS ORDERED: PANTOPRAZOLE 40 MG TABLET PO SCH (09:00)
== END 2023-04-06 14:43 | disposition home health service (06) | DRG 917 ==
LOC: EDUNIT# 08:22 → ER 08:23 → ICU 12:32 → 4TH 04-05 12:47
PROVIDERS: ADMIT Internal Medicine; ATTEND Family Medicine
PROC: 5A1955Z Respiratory Ventilation, Greater than 96 Consecutive Hours (ICD-10-PCS; principal; 2023-03-29)
PROC: 0BH17EZ Insertion of Endotracheal Airway into Trachea, Via Natural or Artificial Opening (ICD-10-PCS; 2023-03-29)
PROC: 02HV33Z Insertion of Infusion Device into Superior Vena Cava, Percutaneous Approach (ICD-10-PCS; 2023-03-29)
PROC: 5A0945A Assistance with Respiratory Ventilation, 24-96 Consecutive Hours, High Flow/Velocity Cannula (ICD-10-PCS; 2023-04-04)
DX: T42.8X2A Poisoning by antiparkinsonism drugs and other central muscle-tone depressants, intentional self-harm, initial encounter (principal); J18.9 Pneumonia, unspecified organism; J96.00 Acute respiratory failure, unspecified whether with hypoxia or hypercapnia; I69.354 Hemiplegia and hemiparesis following cerebral infarction affecting left non-dominant side; R57.9 Shock, unspecified; F15.10 Other stimulant abuse, uncomplicated; Z79.82 Long term (current) use of aspirin; Z79.899 Other long term (current) drug therapy; I25.2 Old myocardial infarction; Z96.641 Presence of right artificial hip joint; Z95.5 Presence of coronary angioplasty implant and graft; I10 Essential (primary) hypertension; I25.10 Atherosclerotic heart disease of native coronary artery without angina pectoris; M19.90 Unspecified osteoarthritis, unspecified site; F41.9 Anxiety disorder, unspecified; E83.42 Hypomagnesemia; E83.39 Other disorders of phosphorus metabolism; F32.A Depression, unspecified; Z11.52 Encounter for screening for COVID-19
CPT/HCPCS: 31500; 36415; 36556; 36569; 36600; 51702; 70450; 71045; 76937; 80048; 80053; 80306; 80320; 80329; 81000; 82805; 82947; 83735; 84100; 84478; 84484; 85007; 85025; 85027; 87070; 87081; 87185; 87205; 87636; 93005; 93041; 94002; 94003; 94640; 94799; 96361; 96365; 99291